=== PATIENT | female | born 1940 | race Caucasian/White ===

== ENCOUNTER 2016-08-29 00:51 | Emergency (ER) | payer MEDICARE, OTHER ==
[2016-08-29] MEDS ORDERED: Morphine 10 MG/ML Syringe IM ONE (01:24)
[2016-08-29] MEDS ORDERED: Furosemide 40 MG Tab PO ONE (01:24)
[2016-08-29] MEDS ORDERED: Furosemide 40 MG Tab ONE (01:42)
[2016-08-29] MEDS ORDERED: Acetaminophen/oxyCODONE 325-5 MG Tab PO ONE (01:50)
[2016-08-29] MEDS ORDERED: Sulfamethoxazole/Trimethoprim 800-160 MG Tab PO ONE (01:50)
[2016-08-29 02:21] VITALS: BP 147/67
--- NOTE | 2016-08-29 02:31 | ER ---
DATE SEEN: 08/29/2016 CHIEF COMPLAINT: Pain in legs. HISTORY OF PRESENT ILLNESS: This is a 75-year-old female with chronic lymphedema. She presents with pain in the lower extremities. The left is worse. There are also weeping wounds and blisters that have worsened over the last 2 days. She denies fever or chills. PAST MEDICAL HISTORY: Chronic lymphedema, hypertension, CAD, obesity. She denies any history of diabetes. REVIEW OF SYSTEMS: No fever or chills. No nausea or vomiting. ALLERGIES: Please see the electronic record. PHYSICAL EXAMINATION: GENERAL: She is afebrile. Blood pressure and temperature within limits with the exception of blood pressure 164/54. EXTREMITIES: Examination showed marked lymphedema. Bullae that are weeping bilaterally. Redness and warmth to palpation. IMPRESSION: 1. Cellulitis, bilateral lower extremities. 2. Lymphedema, chronic marked. 3. Obesity. PLAN: 1. Order a CBC, CMP and will start the patient on Lasix 40 mg a day. Bactrim DS one tablet b.i.d. 2. Percocet 1 tablet q.8 hours p.r.n. I gave her morphine 10 mg IM x1 dose. 3. She will go home, rest, and see Dr. Lopez on Sunday or . Time seen was 0115 hours. /[id number] MIKE/DIONTE
== END 2016-08-29 02:15 | disposition home or self-care (01) ==
LOC: FB.ED 00:51
DX: L03.116 Cellulitis of left lower limb (principal); L03.115 Cellulitis of right lower limb; Q82.0 Hereditary lymphedema; E66.9 Obesity, unspecified; I25.10 Atherosclerotic heart disease of native coronary artery without angina pectoris; I10 Essential (primary) hypertension
CPT/HCPCS: 36415; 80053; 83880; 85025; 96372; 99284; A9270; J2270; 99283

== ENCOUNTER 2016-09-03 19:49 | Inpatient (IN) | payer MEDICARE, OTHER ==
[2016-09-03] MEDS ORDERED: HYDROmorphone 2 MG/ML SDV IM ONE ×2 (20:13→20:50)
[2016-09-03] MEDS ORDERED: Ondansetron 4 MG Tab.DIS PO SCH (20:15)
[2016-09-03] MEDS ORDERED: Polyethylene Glycol 3350 Powder 17 GM Packet PO PRN (20:40)
[2016-09-03] MEDS ORDERED: Ondansetron 4 MG/2 ML SDV IVPUSH PRN (20:53)
[2016-09-03] MEDS ORDERED: HYDROmorphone 2 MG/ML SDV ONE (20:53)
[2016-09-03] MEDS ORDERED: fentaNYL 75 MCG/HR Transdermal Patch TRDERM SCH (21:00)
[2016-09-03] MEDS: Bisacodyl 5 MG Tab PO SCH (21:59)
[2016-09-03] MEDS ORDERED: Piperacillin/Tazobactam 3.375 GM in Sodium Chloride 0.9% 50 ML IV SCH (22:30)
[2016-09-03] MEDS: Sodium Chloride 0.9% 250 ML IV SCH (23:45)
[2016-09-04] MEDS ORDERED: hydrOXYzine HCl 25 MG Tab PO PRN (01:36)
[2016-09-04] MEDS: HYDROmorphone 2 MG Tab PO PRN ×2 (01:53→05:54)
[2016-09-04] MEDS: Sodium Chloride 0.9% 10 ML Syringe FLUSH PRN ×4 (02:47→23:53)
[2016-09-04] MEDS: Piperacillin/Tazobactam 3.375 GM in Sodium Chloride 0.9% 50 ML IV SCH ×4 (05:50→23:57)
[2016-09-04] MEDS: Sodium Chloride 0.9% 250 ML IV SCH (05:53)
[2016-09-04] MEDS ORDERED: Silver Sulfadiazine 1% Crm 400 GM Jar TOP PRN (08:15)
--- NOTE | 2016-09-04 08:31 | PCM.HP ---
H&P History of Present Illness - General Date of Service: 09/04/16 Admit Problem/Dx: Admission Diagnosis/Problem Admission Diagnosis/Problem Cellulitis and abscess of leg Source of Information: Patient History Limitations: Reports: No Limitations - History of Present Illness Initial Comments - Free Text/Narative: This is a 75-year-old female patient with a history of chronic lymphedema and cellulitis in the lower legs. She states she was having some redness in the legs over week ago and was seen in the ER and given antibiotic. She does not recall the antibiotic. She said she was feeling better. She was walking in her house 6 days before admission and hit her left leg on a chair and she started having more redness, swelling and drainage in the left lower leg. She was seen in the ER last night and admitted for IV antibiotics and pain control. She denies fevers, chills. She has been on leg wraps and seen physical therapy in the past. She is not physical therapy currently. Left Lower Leg Pain Score (Numeric/FACES): 10 - Related Data Allergies/Adverse Reactions: Allergies Allergy/AdvReac Type Severity Reaction Status Date / Time oxytetracycline Allergy Mild Dizziness Verified 09/03/16 22:58 [From Terramycin] oxytetracycline HCl Allergy Mild Dizziness Verified 09/03/16 22:58 [From Terramycin] Home Medications: Home Meds Aspirin [Low Dose Aspirin EC] 81 mg PO DAILY 12/09/13 [History] Citalopram [Citalopram HBr] 40 mg PO DAILY 12/09/13 [History] Oxybutynin 10 mg PO BID 12/09/13 [History] Silver Sulfadiazine [Ssd] 1 dose TOP DAILY PRN 12/09/13 [History] buPROPion HCl [Wellbutrin SR] 150 mg PO BID 12/09/13 [History] Lisinopril [Prinivil] 5 mg PO DAILY #30 tablet 12/16/13 [Rx] Acetaminophen with Codeine [Tylenol with Codeine #3 Tablet] 1 each PO TID PRN [History] atorvaSTATin [Lipitor] 40 mg PO BEDTIME 08/29/16 [History] Ferrous Sulfate 324 mg PO DAILY 09/03/16 [History] Past Medical History HEENT History: Reports: Cataract Cardiovascular History: Reports: Hypertension, [place] Other Cardiovascular History: History of Lymphedema. Respiratory History: Reports: SOB Gastrointestinal History: Reports: GERD Other Gastrointestinal History: Obesity. Genitourinary History: Reports: Urinary Incontinence, UTI, Recurrent [employer] History: Reports: Musculoskeletal History: Reports: Osteoarthritis, Other (See Below) Other Musculoskeletal History: lymphoedema Other Neuro History: History of insomnia. Psychiatric History: Reports: Depression Hematologic History: Reports: Anemia Oncologic (Cancer) History: Reports: Other (See Below) Other Oncologic History: skin [place] Dermatologic History: Reports: Cellulitis, Psoriasis Other Dermatologic History: History of [place] intertrigo. - Infectious Disease History Infectious Disease History: Reports: Chicken Pox - Past Surgical History HEENT Surgical History: Reports: Cataract Surgery, Tonsillectomy Cardiovascular Surgical History: Reports: Other (See Below) Other Cardiovascular Surgeries/Procedures: vein stripping GI Surgical History: Reports: Appendectomy Musculoskeletal Surgical History: Reports: Knee Replacement Social & Family History - Family History Family Medical History: Noncontributory - Tobacco Use Smoking Status *Q: Former Smoker Years of Tobacco use: 20 Used Tobacco, but Quit: Yes Month Tobacco Last Used: 1995 Second Hand Smoke Exposure: No - Caffeine Use Caffeine Use: Reports: Coffee - Alcohol Use Days Per Week of Alcohol Use: 0 - Recreational Drug Use Recreational Drug Use: No H&P Review of Systems - Review of Systems: Review Of Systems: See Below General: Reports: No Symptoms HEENT: Reports: No Symptoms Pulmonary: Reports: No Symptoms Cardiovascular: Reports: No Symptoms Gastrointestinal: Reports: No Symptoms Genitourinary: Reports: Incontinence Musculoskeletal: Reports: No Symptoms Psychiatric: Reports: Depression. Denies: Anxiety, Agitation, Hallucinations, Suicidal Ideation Neurological: Reports: No Symptoms Hematologic/Lymphatic: Reports: No Symptoms Immunologic: Reports: No Symptoms Exam - Exam Exam: See Below - Vital Signs Vital Signs: Last Vital Signs Temp 98.9 F 09/04/16 03:07 Pulse 76 09/04/16 03:07 Resp 18 09/04/16 03:07 BP 106/50 L 09/04/16 00:17 Pulse Ox 93 L 09/04/16 03:07 Weight: 210 lb - Exam General: Alert, Oriented, Cooperative HEENT: Mucosa Moist & [place], Posterior Pharynx Clear, TMs Clear Neck: Supple, Trachea Midline, 2 Lungs: Clear to Auscultation, Normal Respiratory Effort Cardiovascular: Regular Rate, Regular Rhythm. No: Systolic Murmur, Diastolic Murmur Abdomen: Normal Bowel Sounds, Soft. No: Peritoneal Signs, Distention, Guarding Back Exam: Normal Inspection, Full Range of Motion Extremities: Edema Skin: Other (Erythema lower legs bilateral. Left greater than right. Some mild leaking clear fluid.) Neuro Extensive - Mental Status: Alert, Oriented x3, Normal Mood/Affect, Normal Cognition Neuro Extensive - Motor, Sensory, Reflexes: Normal Gait Psychiatric: Alert, Normal Affect, Normal Mood - Patient Data Lab Results Last 24 hrs: Laboratory Results - last 24 hr 09/04/16 09/04/16 09/04/16 Range/Units 00:12 02:00 06:21 POC Glucose 141 H 96 (80-116) mg/dL Urine Color Yellow (YELLOW) Urine Appearance Slightly cloudy (CLEAR) Urine pH 6.0 (5.0-6.5) Ur Specific [place] 1.025 (1.010-1.025) Urine Protein Negative (NEGATIVE) mg/dL Urine Glucose (UA) Normal (NEGATIVE) mg/dL Urine Ketones Negative (NEGATIVE) mg/dL Urine Occult Blood Negative (NEGATIVE) Urine Nitrite Negative (NEGATIVE) Urine Bilirubin Negative (NEGATIVE) Urine Urobilinogen Normal (NEGATIVE) mg/dL Ur Leukocyte Esterase Negative (NEGATIVE) Urine RBC 0-5 (0) Urine WBC 0-5 (0) Ur Squamous Epith Cells Few H (NS,R,O) Calcium Oxalate Crystal Few H (NS) Urine Bacteria Few H (NS) Result Diagrams: 09/03/16 20:40 09/03/16 20:30 *Q Meaningful Use (ADM) - VTE *Q VTE Criteria *Q: - Stroke *Q Stroke Criteria *Q: - AMI *Q AMI Criteria *Q: - Problem List (1) Cellulitis and abscess of left leg SNOMED Code(s): 312690135 ICD Code: L03.116 - CELLULITIS OF LEFT LOWER LIMB; L02.416 - CUTANEOUS ABSCESS OF LEFT LOWER LIMB Status: Acute Current Visit: Yes (2) Chronic acquired lymphedema SNOMED Code(s): 86520700 ICD Code: I89.0 - LYMPHEDEMA, NOT ELSEWHERE CLASSIFIED Status: Acute Current Visit: Yes (3) Depression SNOMED Code(s): 29072852 ICD Code: F32.9 - MAJOR DEPRESSIVE DISORDER, SINGLE EPISODE, UNSPECIFIED Status: Acute Current Visit: Yes Problem List Initiated/Reviewed/Updated: Yes Orders Last 24hrs: Active Orders 24 hr Category Date Time Status PT Evaluation and Treatment [CONS] Routine Cons 09/04/16 07:48 Active VIRAL CULTURE [MREF] Routine Lab 09/03/16 22:35 Received Acetaminophen/oxyCODONE [Percocet 325-5 MG] Med 09/04/16 08:15 Ordered 1 tab PO Q4H PRN Aspirin [Halfprin] Med 09/04/16 09:00 Ordered 81 mg PO DAILY Escitalopram [Lexapro] Med 09/04/16 09:00 Ordered 20 mg PO DAILY Ferrous Sulfate [Ferrous Sulfate] Med 09/04/16 09:00 Ordered 324 mg PO DAILY Lisinopril [Prinivil] Med 09/04/16 09:00 Ordered 5 mg PO DAILY Oxybutynin Med 09/04/16 09:00 Ordered 10 mg PO BID Piperacillin/Tazobactam [Zosyn] 3.375 gm Med 09/04/16 06:00 Active Sodium Chloride 0.9% [Normal Saline] 50 ml IV Q6H Silver Sulfadiazine [Silvadene 1% Cream 400 GM] Med 09/04/16 08:15 Ordered 1 dose TOP DAILY PRN Sodium Chloride 0.9% [Normal Saline] 250 ml Med 09/03/16 23:45 Active IV ASDIRECTED Sodium Chloride 0.9% [Saline Flush] Med 09/03/16 23:43 Active 10 ml FLUSH ASDIRECTED PRN Vancomycin [Vancocin] 1.5 gm Med 09/03/16 23:00 Active Sodium Chloride 0.9% [Normal Saline] 250 ml IV Q24H atorvaSTATin [Lipitor] Med 09/04/16 21:00 Ordered 40 mg PO BEDTIME Isolation [COMM] Routine Oth 09/03/16 22:25 Ordered Precautions [COMM] Routine Oth 09/03/16 22:25 Ordered EKG 12 Lead [EK] Routine Ther 09/03/16 21:02 Ordered Medication Orders Aspirin (Halfprin) 81 mg PO DAILY [facility] Atorvastatin Calcium (Lipitor) 40 mg PO BEDTIME [facility] Bisacodyl (Dulcolax) 5 mg PO BID [facility] Last Admin: 09/03/16 21:59 Dose: Not Given Enoxaparin Sodium (Lovenox) 40 mg SUBCUT DAILY [facility] Vancomycin HCl 1.5 gm/ Sodium (Chloride) 250 mls @ 167 mls/hr IV Q24H [facility] Last Admin: 09/03/16 23:55 Dose: 167 mls/hr Sodium Chloride (Normal Saline) 250 mls @ 100 mls/hr IV ASDIRECTED [facility] Last Admin: 09/04/16 05:53 Dose: 100 mls/hr Admin: 09/03/16 23:45 Dose: 100 mls/hr Piperacillin Sod/Tazobactam (Sod 3.375 gm/ Sodium Chloride) 50 mls @ 100 mls/ hr IV Q6H [facility] Last Admin: 09/04/16 05:50 Dose: 100 mls/hr Lisinopril (Prinivil) 5 mg PO DAILY [facility] Non-Formulary Medication (Ferrous Sulfate [Ferrous Sulfate]) 324 mg PO DAILY [facility] Oxybutynin Chloride (Oxybutynin) 10 mg PO BID [facility] Oxycodone/Acetaminophen (Percocet 325-5 Mg) 1 tab PO Q4H PRN PRN Reason: Pain Polyethylene Glycol (Miralax) 17 gm PO DAILY PRN PRN Reason: Constipation Silver Sulfadiazine (Silvadene 1% Cream 400 Gm) gm TOP DAILY PRN PRN Reason: skin irritation Sodium Chloride (Saline Flush) 10 ml FLUSH ASDIRECTED PRN PRN Reason: Keep Vein Open Last Admin: 09/04/16 08:00 Dose: 10 ml Admin: 09/04/16 03:46 Dose: 10 ml Admin: 09/04/16 02:47 Dose: 10 ml Assessment/Plan Comment:: 1. Admit for IV antibiotics that are already ordered. 2. Patient refuses Lovenox cannot wear SCDs. Risks explained and she understands. 3. Regular diet. 4. Up ad nancy. 5. PT 6. Restart her regular medicines. Hold Celexa and Wellbutrin and I'll try Lexapro 20 mg a day.
[2016-09-04] MEDS: Escitalopram 20 MG Tab PO SCH (09:11)
[2016-09-04] MEDS: Oxybutynin 5 MG Tab PO SCH ×2 (09:11→21:37)
[2016-09-04] MEDS: Ferrous Sulfate 325 MG Tab PO SCH (09:11)
[2016-09-04] MEDS: Lisinopril 5 MG Tab PO SCH (09:11)
[2016-09-04] MEDS: Aspirin 81 MG Tab.EC PO SCH (09:11)
[2016-09-04] MEDS: Bisacodyl 5 MG Tab PO SCH ×2 (09:11→21:36)
[2016-09-04] MEDS: Enoxaparin 40 MG/0.4 ML Syringe SUBCUT SCH (09:11)
[2016-09-04] MEDS: Acetaminophen/oxyCODONE 325-5 MG Tab PO PRN ×2 (09:12→14:11)
[2016-09-04] MEDS: HYDROmorphone 2 MG/ML SDV IVPUSH PRN (19:21)
[2016-09-04] MEDS ORDERED: Zolpidem 10 MG Tab PO PRN (19:57)
[2016-09-04] MEDS: atorvaSTATin 40 MG Tab PO SCH (21:37)
[2016-09-04] MEDS ORDERED: Bisacodyl 10 MG Supp RECTAL PRN (23:00)
[2016-09-05] MEDS: Acetaminophen/oxyCODONE 325-5 MG Tab PO PRN ×4 (00:14→21:17)
[2016-09-05] MEDS: Zolpidem 5 MG Tab PO PRN (00:15)
[2016-09-05] MEDS ORDERED: hydrOXYzine HCl 25 MG Tab PO PRN (00:30)
[2016-09-05] MEDS: Sodium Chloride 0.9% 10 ML Syringe FLUSH PRN ×4 (00:42→17:15)
[2016-09-05] MEDS: Piperacillin/Tazobactam 3.375 GM in Sodium Chloride 0.9% 50 ML IV SCH ×3 (05:38→18:23)
[2016-09-05] MEDS: Sodium Chloride 0.9% 250 ML IV SCH (05:38)
--- NOTE | 2016-09-05 08:12 | PCM.PN ---
- General Info Date of Service: 09/05/16 Admission Dx/Problem (Free Text): Patient states she slept through the night. She still has a burning sensation left lower leg. She states the room is cold but she has no real fevers or chills. Nurses report that the area on left lower leg is lots of serosanguineous weeping. - Patient Data Vitals - most recent: Last Vital Signs Temp 98.7 F 09/05/16 04:35 Pulse 74 09/05/16 04:35 Resp 18 09/05/16 04:35 BP 132/59 L 09/05/16 04:35 Pulse Ox 96 09/05/16 04:35 Weight - most recent: 210 lb I&O - last 24 hours: Intake & Output 09/04/16 09/05/16 09/05/16 22:59 06:59 14:59 Intake Total 740 Balance 740 Lab Results last 24 hrs: Laboratory Results - last 24 hr 09/04/16 Range/Units 11:34 POC Glucose 100 (80-116) mg/dL Med Orders - Current: Current Medications Aspirin (Halfprin) 81 mg PO DAILY [facility] Last Admin: 09/04/16 09:11 Dose: 81 mg Atorvastatin Calcium (Lipitor) 40 mg PO BEDTIME [facility] Last Admin: 09/04/16 21:37 Dose: 40 mg Bisacodyl (Dulcolax) 5 mg PO BID [facility] Last Admin: 09/04/16 21:36 Dose: Not Given Bisacodyl (Dulcolax) 10 mg RECTAL DAILY PRN PRN Reason: Constipation Last Admin: 09/04/16 23:47 Dose: 10 mg Enoxaparin Sodium (Lovenox) 40 mg SUBCUT DAILY [facility] Last Admin: 09/04/16 09:11 Dose: 40 mg Escitalopram Oxalate (Lexapro) 20 mg PO DAILY [facility] Last Admin: 09/04/16 09:11 Dose: 20 mg Ferrous Sulfate (Ferrous Sulfate) 325 mg PO DAILY [facility] Last Admin: 09/04/16 09:11 Dose: 325 mg Hydromorphone HCl (Dilaudid) 2 mg IVPUSH Q2H PRN PRN Reason: Pain Last Admin: 09/04/16 19:21 Dose: 2 mg Piperacillin Sod/Tazobactam (Sod 3.375 gm/ Sodium Chloride) 50 mls @ 100 mls/ hr IV Q6H [facility] Last Admin: 09/05/16 05:38 Dose: 100 mls/hr Vancomycin HCl 1,000 mg/Vancomycin HCl 500 mg/ Sodium Chloride 500 mls @ 334.014 mls/hr IV Q24H [facility] Last Admin: 09/05/16 00:45 Dose: 334.014 mls/hr Lisinopril (Prinivil) 5 mg PO DAILY [facility] Last Admin: 09/04/16 09:11 Dose: 5 mg Oxybutynin Chloride (Oxybutynin) 10 mg PO BID [facility] Last Admin: 09/04/16 21:37 Dose: 10 mg Oxycodone/Acetaminophen (Percocet 325-5 Mg) 1 tab PO Q4H PRN PRN Reason: Pain Last Admin: 09/05/16 04:15 Dose: 1 tab Polyethylene Glycol (Miralax) 17 gm PO DAILY PRN PRN Reason: Constipation Silver Sulfadiazine (Silvadene 1% Cream 400 Gm) 0 gm TOP BID [facility] Zolpidem Tartrate (Ambien) 5 mg PO BEDTIME PRN PRN Reason: Insomnia Last Admin: 09/05/16 00:15 Dose: 5 mg Discontinued Medications Fentanyl (Duragesic) 75 mcg TRDERM Q72H [facility] Last Admin: 09/03/16 21:58 Dose: 75 mcg Hydromorphone HCl (Dilaudid) 2 mg IM ONETIME ONE Stop: 09/03/16 20:14 Last Admin: 09/03/16 20:28 Dose: 2 mg Hydromorphone HCl (Dilaudid) 2 mg IM ONETIME ONE Stop: 09/03/16 20:51 Last Admin: 09/03/16 20:58 Dose: 2 mg Hydromorphone HCl (Dilaudid) Confirm Administered Dose 2 mg .ROUTE .STK-MED ONE Stop: 09/03/16 20:54 Last Admin: 09/03/16 20:57 Dose: Not Given Hydromorphone HCl (Dilaudid) 2 mg PO Q4H PRN PRN Reason: Pain Last Admin: 09/04/16 05:54 Dose: 2 mg Hydroxyzine HCl (Atarax) 25 mg PO BEDTIME PRN PRN Reason: Insomnia Last Admin: 09/04/16 02:05 Dose: 25 mg Hydroxyzine HCl (Atarax) 25 mg PO Q6H PRN PRN Reason: Itching Last Admin: 09/05/16 01:08 Dose: 25 mg Vancomycin HCl 1.5 gm/ Sodium (Chloride) 250 mls @ 167 mls/hr IV Q24H [facility] Last Admin: 09/03/16 23:55 Dose: 167 mls/hr Piperacillin Sod/Tazobactam (Sod 3.375 gm/ Sodium Chloride) 50 mls @ 100 mls/ hr IV Q6H [facility] Last Admin: 09/04/16 01:05 Dose: 100 mls/hr Sodium Chloride (Normal Saline) 250 mls @ 100 mls/hr IV ASDIRECTED [facility] Last Admin: 09/05/16 05:38 Dose: 100 mls/hr Vancomycin HCl 1,000 mg/Vancomycin HCl 500 mg/ Sodium Chloride 500 mls @ 334.014 mls/hr IV Q24H [facility] Miscellaneous Information (Remove Patch) 1 ea TRDERM NOW STA Stop: 09/04/16 09:22 Last Admin: 09/04/16 09:22 Dose: 1 ea Ondansetron HCl (Zofran Odt) 4 mg PO ONETIME [facility] Last Admin: 09/03/16 20:29 Dose: 4 mg Ondansetron HCl (Zofran) 4 mg IVPUSH Q6H PRN PRN Reason: Nausea/Vomiting Silver Sulfadiazine (Silvadene 1% Cream 400 Gm) 0 gm TOP DAILY PRN PRN Reason: skin irritation Sodium Chloride (Saline Flush) 10 ml FLUSH ASDIRECTED PRN PRN Reason: Keep Vein Open Last Admin: 09/05/16 05:30 Dose: 10 ml Zolpidem Tartrate (Ambien) 10 mg PO BEDTIME PRN PRN Reason: Insomnia - Exam General: alert, oriented, cooperative Extremities: other (Left lower leg has some weeping and erythema. I do not feel any fluctuant masses. Both the same as yesterday. Right leg is some erythema and crusting.) - Problem List & Annotations (1) Cellulitis and abscess of left leg SNOMED Code(s): 097423598 Code(s): L03.116 - CELLULITIS OF LEFT LOWER LIMB; L02.416 - CUTANEOUS ABSCESS OF LEFT LOWER LIMB Status: Acute Current Visit: Yes (2) Chronic acquired lymphedema SNOMED Code(s): 83811995 Code(s): I89.0 - LYMPHEDEMA, NOT ELSEWHERE CLASSIFIED Status: Acute Current Visit: Yes (3) Depression SNOMED Code(s): 90184910 Code(s): F32.9 - MAJOR DEPRESSIVE DISORDER, SINGLE EPISODE, UNSPECIFIED Status: Acute Current Visit: Yes - Problem List Review Problem List Initiated/Reviewed/Updated: Yes - Plan Plan:: 1. Continue IV antibiotics 2. Silvadene cream twice a day to the left lower leg. 3. In the ER a viral culture of the skin was ordered. I asked the lab to see if they can convert this to wound culture. Will reculture her left lower leg. 4. Up ad nancy. and up in the chair with leg elevated. 5. Pharmacy to manage vancomycin. 6. CBC this a.m.
[2016-09-05] MEDS: Aspirin 81 MG Tab.EC PO SCH (08:42)
[2016-09-05] MEDS: Enoxaparin 40 MG/0.4 ML Syringe SUBCUT SCH (08:42)
[2016-09-05] MEDS: Lisinopril 5 MG Tab PO SCH (08:42)
[2016-09-05] MEDS: Ferrous Sulfate 325 MG Tab PO SCH (08:42)
[2016-09-05] MEDS: Bisacodyl 5 MG Tab PO SCH (08:42)
[2016-09-05] MEDS: Oxybutynin 5 MG Tab PO SCH ×2 (08:42→21:08)
[2016-09-05] MEDS: Escitalopram 20 MG Tab PO SCH (08:42)
[2016-09-05] MEDS: Silver Sulfadiazine 1% Crm 400 GM Jar TOP SCH ×2 (08:43→21:17)
[2016-09-05] MEDS: Cetirizine 10 MG Tab PO PRN (12:04)
[2016-09-05] MEDS: HYDROmorphone 2 MG/ML SDV IVPUSH PRN (17:22)
[2016-09-05] MEDS ORDERED: Bisacodyl 5 MG Tab PO PRN (20:25)
[2016-09-05] MEDS: atorvaSTATin 40 MG Tab PO SCH (21:08)
[2016-09-06] MEDS: Acetaminophen/oxyCODONE 325-5 MG Tab PO PRN ×3 (00:44→09:05)
[2016-09-06] MEDS: Piperacillin/Tazobactam 3.375 GM in Sodium Chloride 0.9% 50 ML IV SCH ×4 (00:45→18:36)
[2016-09-06] MEDS: guaiFENesin 100 MG/5 ML Soln 5 ML UD Cup PO PRN (02:00)
[2016-09-06] MEDS: HYDROmorphone 2 MG/ML SDV IVPUSH PRN (02:01)
[2016-09-06] MEDS: Aspirin 81 MG Tab.EC PO SCH (08:50)
[2016-09-06] MEDS: Ferrous Sulfate 325 MG Tab PO SCH (08:50)
[2016-09-06] MEDS: Oxybutynin 5 MG Tab PO SCH ×2 (08:50→20:27)
[2016-09-06] MEDS: Escitalopram 20 MG Tab PO SCH (08:50)
[2016-09-06] MEDS: Lisinopril 5 MG Tab PO SCH (08:51)
[2016-09-06] MEDS: Enoxaparin 40 MG/0.4 ML Syringe SUBCUT SCH (08:51)
[2016-09-06] MEDS: Silver Sulfadiazine 1% Crm 400 GM Jar TOP SCH ×2 (09:16→20:27)
--- NOTE | 2016-09-06 09:31 | PCM.PN ---
- General Info Date of Service: 09/06/16 Admission Dx/Problem (Free Text): Patient had a bad night. She says did not sleep well. She still is leg pain. She doesn't know the medicines really helping. She denies fevers or chills. - Patient Data Vitals - most recent: Last Vital Signs Temp 98.6 F 09/06/16 05:10 Pulse 75 09/06/16 08:00 Resp 18 09/06/16 08:00 BP 129/62 09/06/16 08:00 Pulse Ox 94 L 09/06/16 08:00 Weight - most recent: 210 lb I&O - last 24 hours: Intake & Output 09/05/16 09/06/16 09/06/16 22:59 06:59 14:59 Intake Total 635 Output Total 0 Balance 635 0 Lab Results last 24 hrs: Laboratory Results - last 24 hr 09/06/16 Range/Units 00:45 Vancomycin Trough 8.9 L (10-15) ug/mL Med Orders - Current: Current Medications Aspirin (Halfprin) 81 mg PO DAILY [facility] Last Admin: 09/06/16 08:50 Dose: 81 mg Atorvastatin Calcium (Lipitor) 40 mg PO BEDTIME [facility] Last Admin: 09/05/16 21:08 Dose: 40 mg Bisacodyl (Dulcolax) 10 mg RECTAL DAILY PRN PRN Reason: Constipation Last Admin: 09/04/16 23:47 Dose: 10 mg Bisacodyl (Dulcolax) 5 mg PO BID PRN PRN Reason: Constipation Cetirizine HCl (Zyrtec) 10 mg PO DAILY PRN PRN Reason: Itching Last Admin: 09/05/16 12:04 Dose: 10 mg Enoxaparin Sodium (Lovenox) 40 mg SUBCUT DAILY [facility] Last Admin: 09/06/16 08:51 Dose: 40 mg Escitalopram Oxalate (Lexapro) 20 mg PO DAILY [facility] Last Admin: 09/06/16 08:50 Dose: 20 mg Ferrous Sulfate (Ferrous Sulfate) 325 mg PO DAILY [facility] Last Admin: 09/06/16 08:50 Dose: 325 mg Guaifenesin (Robitussin) 100 mg PO Q6H PRN PRN Reason: Cough Last Admin: 09/06/16 02:00 Dose: 100 mg Piperacillin Sod/Tazobactam (Sod 3.375 gm/ Sodium Chloride) 50 mls @ 100 mls/ hr IV Q6H [facility] Last Admin: 09/06/16 05:07 Dose: 100 mls/hr Vancomycin HCl 1,000 mg/Vancomycin HCl 500 mg/ Sodium Chloride 500 mls @ 333 mls/hr IV Q24H [facility] Last Admin: 09/06/16 01:49 Dose: 333 mls/hr Lisinopril (Prinivil) 5 mg PO DAILY [facility] Last Admin: 09/06/16 08:51 Dose: 5 mg Oxybutynin Chloride (Oxybutynin) 10 mg PO BID [facility] Last Admin: 09/06/16 08:50 Dose: 10 mg Polyethylene Glycol (Miralax) 17 gm PO DAILY PRN PRN Reason: Constipation Silver Sulfadiazine (Silvadene 1% Cream 400 Gm) 0 gm TOP BID [facility] Last Admin: 09/06/16 09:16 Dose: 1 applic Sodium Chloride (Saline Flush) 10 ml FLUSH ASDIRECTED PRN PRN Reason: Keep Vein Open Last Admin: 09/05/16 17:15 Dose: 10 ml Vancomycin HCl (Pharmacy To Dose - Vancomycin) 0 dose .XX ASDIRECTED [facility] Zolpidem Tartrate (Ambien) 5 mg PO BEDTIME PRN PRN Reason: Insomnia Last Admin: 09/05/16 00:15 Dose: 5 mg Discontinued Medications Bisacodyl (Dulcolax) 5 mg PO BID [facility] Last Admin: 09/05/16 08:42 Dose: 5 mg Fentanyl (Duragesic) 75 mcg TRDERM Q72H [facility] Last Admin: 09/03/16 21:58 Dose: 75 mcg Hydromorphone HCl (Dilaudid) 2 mg IM ONETIME ONE Stop: 09/03/16 20:14 Last Admin: 09/03/16 20:28 Dose: 2 mg Hydromorphone HCl (Dilaudid) 2 mg IM ONETIME ONE Stop: 09/03/16 20:51 Last Admin: 09/03/16 20:58 Dose: 2 mg Hydromorphone HCl (Dilaudid) Confirm Administered Dose 2 mg .ROUTE .STK-MED ONE Stop: 09/03/16 20:54 Last Admin: 09/03/16 20:57 Dose: Not Given Hydromorphone HCl (Dilaudid) 2 mg PO Q4H PRN PRN Reason: Pain Last Admin: 09/04/16 05:54 Dose: 2 mg Hydromorphone HCl (Dilaudid) 2 mg IVPUSH Q2H PRN PRN Reason: Pain Last Admin: 09/06/16 02:01 Dose: 2 mg Hydroxyzine HCl (Atarax) 25 mg PO BEDTIME PRN PRN Reason: Insomnia Last Admin: 09/04/16 02:05 Dose: 25 mg Hydroxyzine HCl (Atarax) 25 mg PO Q6H PRN PRN Reason: Itching Last Admin: 09/05/16 01:08 Dose: 25 mg Vancomycin HCl 1.5 gm/ Sodium (Chloride) 250 mls @ 167 mls/hr IV Q24H [facility] Last Admin: 09/03/16 23:55 Dose: 167 mls/hr Piperacillin Sod/Tazobactam (Sod 3.375 gm/ Sodium Chloride) 50 mls @ 100 mls/ hr IV Q6H [facility] Last Admin: 09/04/16 01:05 Dose: 100 mls/hr Sodium Chloride (Normal Saline) 250 mls @ 100 mls/hr IV ASDIRECTED [facility] Last Admin: 09/05/16 05:38 Dose: 100 mls/hr Vancomycin HCl 1,000 mg/Vancomycin HCl 500 mg/ Sodium Chloride 500 mls @ 334.014 mls/hr IV Q24H [facility] Vancomycin HCl 1,000 mg/Vancomycin HCl 500 mg/ Sodium Chloride 500 mls @ 334.014 mls/hr IV Q24H [facility] Last Admin: 09/05/16 00:45 Dose: 334.014 mls/hr Miscellaneous Information (Remove Patch) 1 ea TRDERM NOW STA Stop: 09/04/16 09:22 Last Admin: 09/04/16 09:22 Dose: 1 ea Ondansetron HCl (Zofran Odt) 4 mg PO ONETIME [facility] Last Admin: 09/03/16 20:29 Dose: 4 mg Ondansetron HCl (Zofran) 4 mg IVPUSH Q6H PRN PRN Reason: Nausea/Vomiting Oxycodone/Acetaminophen (Percocet 325-5 Mg) 1 tab PO Q4H PRN PRN Reason: Pain Last Admin: 09/06/16 09:05 Dose: 1 tab Silver Sulfadiazine (Silvadene 1% Cream 400 Gm) 0 gm TOP DAILY PRN PRN Reason: skin irritation Sodium Chloride (Saline Flush) 10 ml FLUSH ASDIRECTED PRN PRN Reason: Keep Vein Open Last Admin: 09/05/16 05:30 Dose: 10 ml Zolpidem Tartrate (Ambien) 10 mg PO BEDTIME PRN PRN Reason: Insomnia - Exam General: alert, oriented, cooperative Extremities: other (The leg redness is decreasing. There is an ulcer that opened up and is healing nicely. No weeping.) - Problem List & Annotations (1) Cellulitis and abscess of left leg SNOMED Code(s): 981881282 Code(s): L03.116 - CELLULITIS OF LEFT LOWER LIMB; L02.416 - CUTANEOUS ABSCESS OF LEFT LOWER LIMB Status: Acute Current Visit: Yes (2) Chronic acquired lymphedema SNOMED Code(s): 68372928 Code(s): I89.0 - LYMPHEDEMA, NOT ELSEWHERE CLASSIFIED Status: Acute Current Visit: Yes (3) Depression SNOMED Code(s): 00609683 Code(s): F32.9 - MAJOR DEPRESSIVE DISORDER, SINGLE EPISODE, UNSPECIFIED Status: Acute Current Visit: Yes - Problem List Review Problem List Initiated/Reviewed/Updated: Yes - My Orders Last 24 Hours: My Active Orders 09/05/16 08:35 CULTURE ROUTINE + SMEAR [RM] Routine 09/05/16 09:00 Silver Sulfadiazine [Silvadene 1% Cream 400 GM] 0 gm TOP BID 09/05/16 09:19 Cetirizine [ZyrTEC] 10 mg PO DAILY PRN 09/05/16 11:30 Vancomycin Pharmacy to Dose [Pharmacy to Dose - Vancomycin] See Dose Instructions .XX ASDIRECTED 09/05/16 17:20 Sodium Chloride 0.9% [Saline Flush] 10 ml FLUSH ASDIRECTED PRN 09/05/16 20:25 Bisacodyl [Dulcolax] 5 mg PO BID PRN 09/06/16 09:27 HYDROmorphone [Dilaudid] 4 mg PO Q4H PRN - Plan Plan:: 1. Continue IV antibiotics 2. Silvadene cream twice a day to the left lower leg. 3. Wound culture so far is negative. 4. Stop Percocet and IV hydromorphone. Start hydromorphone 4 mg every 4 hours when necessary 5. Restart wrapping her legs with [place] wrap to see if getting the swelling I'll make this resolve sooner.
[2016-09-06] MEDS: Cetirizine 10 MG Tab PO PRN (10:39)
[2016-09-06] MEDS ORDERED: guaiFENesin/Dextromethorphan 100-10 MG/5 ML Soln 5 ML Cup PO PRN (17:57)
[2016-09-06] MEDS: HYDROmorphone 2 MG Tab PO PRN (18:36)
[2016-09-06] MEDS: atorvaSTATin 40 MG Tab PO SCH (20:27)
[2016-09-07] MEDS: Piperacillin/Tazobactam 3.375 GM in Sodium Chloride 0.9% 50 ML IV SCH ×4 (00:30→20:45)
[2016-09-07] MEDS: HYDROmorphone 2 MG Tab PO PRN ×2 (00:31→05:08)
[2016-09-07] MEDS: guaiFENesin 100 MG/5 ML Soln 5 ML UD Cup PO PRN (00:44)
[2016-09-07] MEDS: Zolpidem 5 MG Tab PO PRN (01:50)
--- NOTE | 2016-09-07 09:13 | PCM.PN ---
- General Info Date of Service: 09/07/16 Admission Dx/Problem (Free Text): This patient states she still having excruciating pain in the left lower leg. Last night when she was on 4 mg of Hydromox she was tired. On 2 mg she says it does not take care of the pain. She's used morphine in the ER and that didn't work either. She like me to increase the pain pill. She denies fevers, chills Anastacia is some weeping now again on the left lower leg. She told the nurses that Silvadene burn the skin. And she did not tolerate the wraps. - Patient Data Vitals - most recent: Last Vital Signs Temp 98.1 F 09/07/16 00:26 Pulse 79 09/07/16 00:26 Resp 18 09/07/16 00:26 BP 133/64 09/07/16 00:26 Pulse Ox 95 09/07/16 00:26 Weight - most recent: 210 lb I&O - last 24 hours: Intake & Output 09/06/16 09/07/16 09/07/16 22:59 06:59 14:59 Intake Total 85 606 Balance 85 606 Timo Results last 24 hrs: Microbiology 09/05/16 08:35 Gram Stain - Final Leg, Left Routine Culture - Final No Growth Med Orders - Current: Current Medications Aspirin (Halfprin) 81 mg PO DAILY [facility] Last Admin: 09/06/16 08:50 Dose: 81 mg Atorvastatin Calcium (Lipitor) 40 mg PO BEDTIME [facility] Last Admin: 09/06/16 20:27 Dose: 40 mg Bisacodyl (Dulcolax) 10 mg RECTAL DAILY PRN PRN Reason: Constipation Last Admin: 09/04/16 23:47 Dose: 10 mg Bisacodyl (Dulcolax) 5 mg PO BID PRN PRN Reason: Constipation Cetirizine HCl (Zyrtec) 10 mg PO DAILY PRN PRN Reason: Itching Last Admin: 09/06/16 10:39 Dose: 10 mg Enoxaparin Sodium (Lovenox) 40 mg SUBCUT DAILY [facility] Last Admin: 09/06/16 08:51 Dose: 40 mg Escitalopram Oxalate (Lexapro) 20 mg PO DAILY [facility] Last Admin: 09/06/16 08:50 Dose: 20 mg Ferrous Sulfate (Ferrous Sulfate) 325 mg PO DAILY [facility] Last Admin: 09/06/16 08:50 Dose: 325 mg Guaifenesin (Robitussin) 100 mg PO Q6H PRN PRN Reason: Cough Last Admin: 09/07/16 00:44 Dose: 100 mg Guaifenesin/Phenylephrine HCl (Robitussin Dm) 5 ml PO Q4H PRN PRN Reason: Cough Hydromorphone HCl (Dilaudid) 4 mg PO Q4H PRN PRN Reason: Pain Piperacillin Sod/Tazobactam (Sod 3.375 gm/ Sodium Chloride) 50 mls @ 100 mls/ hr IV Q6H [facility] Last Admin: 09/07/16 06:39 Dose: 100 mls/hr Vancomycin HCl 1,000 mg/Vancomycin HCl 500 mg/ Sodium Chloride 500 mls @ 333 mls/hr IV Q24H [facility] Last Admin: 09/07/16 01:49 Dose: 333 mls/hr Lisinopril (Prinivil) 5 mg PO DAILY [facility] Last Admin: 09/06/16 08:51 Dose: 5 mg Oxybutynin Chloride (Oxybutynin) 10 mg PO BID [facility] Last Admin: 09/06/16 20:27 Dose: 10 mg Polyethylene Glycol (Miralax) 17 gm PO DAILY PRN PRN Reason: Constipation Silver Sulfadiazine (Silvadene 1% Cream 400 Gm) 0 gm TOP BID [facility] Last Admin: 09/06/16 20:27 Dose: 1 applic Sodium Chloride (Saline Flush) 10 ml FLUSH ASDIRECTED PRN PRN Reason: Keep Vein Open Last Admin: 09/05/16 17:15 Dose: 10 ml Vancomycin HCl (Pharmacy To Dose - Vancomycin) 0 dose .XX ASDIRECTED [facility] Zolpidem Tartrate (Ambien) 5 mg PO BEDTIME PRN PRN Reason: Insomnia Last Admin: 09/07/16 01:50 Dose: 5 mg Discontinued Medications Bisacodyl (Dulcolax) 5 mg PO BID [facility] Last Admin: 09/05/16 08:42 Dose: 5 mg Fentanyl (Duragesic) 75 mcg TRDERM Q72H [facility] Last Admin: 09/03/16 21:58 Dose: 75 mcg Hydromorphone HCl (Dilaudid) 2 mg IM ONETIME ONE Stop: 09/03/16 20:14 Last Admin: 09/03/16 20:28 Dose: 2 mg Hydromorphone HCl (Dilaudid) 2 mg IM ONETIME ONE Stop: 09/03/16 20:51 Last Admin: 09/03/16 20:58 Dose: 2 mg Hydromorphone HCl (Dilaudid) Confirm Administered Dose 2 mg .ROUTE .STK-MED ONE Stop: 09/03/16 20:54 Last Admin: 09/03/16 20:57 Dose: Not Given Hydromorphone HCl (Dilaudid) 2 mg PO Q4H PRN PRN Reason: Pain Last Admin: 09/04/16 05:54 Dose: 2 mg Hydromorphone HCl (Dilaudid) 2 mg IVPUSH Q2H PRN PRN Reason: Pain Last Admin: 09/06/16 02:01 Dose: 2 mg Hydromorphone HCl (Dilaudid) 4 mg PO Q4H PRN PRN Reason: Pain Last Admin: 09/06/16 14:01 Dose: 4 mg Hydromorphone HCl (Dilaudid) 2 mg PO Q4H PRN PRN Reason: Pain Last Admin: 09/07/16 05:08 Dose: 2 mg Hydroxyzine HCl (Atarax) 25 mg PO BEDTIME PRN PRN Reason: Insomnia Last Admin: 09/04/16 02:05 Dose: 25 mg Hydroxyzine HCl (Atarax) 25 mg PO Q6H PRN PRN Reason: Itching Last Admin: 09/05/16 01:08 Dose: 25 mg Vancomycin HCl 1.5 gm/ Sodium (Chloride) 250 mls @ 167 mls/hr IV Q24H [facility] Last Admin: 09/03/16 23:55 Dose: 167 mls/hr Piperacillin Sod/Tazobactam (Sod 3.375 gm/ Sodium Chloride) 50 mls @ 100 mls/ hr IV Q6H [facility] Last Admin: 09/04/16 01:05 Dose: 100 mls/hr Sodium Chloride (Normal Saline) 250 mls @ 100 mls/hr IV ASDIRECTED [facility] Last Admin: 09/05/16 05:38 Dose: 100 mls/hr Vancomycin HCl 1,000 mg/Vancomycin HCl 500 mg/ Sodium Chloride 500 mls @ 334.014 mls/hr IV Q24H [facility] Vancomycin HCl 1,000 mg/Vancomycin HCl 500 mg/ Sodium Chloride 500 mls @ 334.014 mls/hr IV Q24H [facility] Last Admin: 09/05/16 00:45 Dose: 334.014 mls/hr Miscellaneous Information (Remove Patch) 1 ea CATRACHITO NOW STA Stop: 09/04/16 09:22 Last Admin: 09/04/16 09:22 Dose: 1 ea Ondansetron HCl (Zofran Odt) 4 mg PO ONETIME [facility] Last Admin: 09/03/16 20:29 Dose: 4 mg Ondansetron HCl (Zofran) 4 mg IVPUSH Q6H PRN PRN Reason: Nausea/Vomiting Oxycodone/Acetaminophen (Percocet 325-5 Mg) 1 tab PO Q4H PRN PRN Reason: Pain Last Admin: 09/06/16 09:05 Dose: 1 tab Silver Sulfadiazine (Silvadene 1% Cream 400 Gm) 0 gm TOP DAILY PRN PRN Reason: skin irritation Sodium Chloride (Saline Flush) 10 ml FLUSH ASDIRECTED PRN PRN Reason: Keep Vein Open Last Admin: 09/05/16 05:30 Dose: 10 ml Zolpidem Tartrate (Ambien) 10 mg PO BEDTIME PRN PRN Reason: Insomnia - Exam General: alert, oriented, mild distress Extremities: other (Erythema with some weeping wounds left lower leg. I do not feel any fluctuant masses.) - Problem List & Annotations (1) Cellulitis and abscess of left leg SNOMED Code(s): 019844072 Code(s): L03.116 - CELLULITIS OF LEFT LOWER LIMB; L02.416 - CUTANEOUS ABSCESS OF LEFT LOWER LIMB Status: Acute Current Visit: Yes (2) Chronic acquired lymphedema SNOMED Code(s): 31594888 Code(s): I89.0 - LYMPHEDEMA, NOT ELSEWHERE CLASSIFIED Status: Acute Current Visit: Yes (3) Depression SNOMED Code(s): 68073266 Code(s): F32.9 - MAJOR DEPRESSIVE DISORDER, SINGLE EPISODE, UNSPECIFIED Status: Acute Current Visit: Yes - Problem List Review Problem List Initiated/Reviewed/Updated: Yes - My Orders Last 24 Hours: My Active Orders 09/06/16 17:56 Chest 2V [CR] Routine 09/06/16 17:57 Dextromethorphan/guaiFENesin [Robitussin DM] 5 ml PO Q4H PRN 09/07/16 09:10 Consult to Physician [CONS] Routine Extremity Non Vascular Lt [US] Routine 09/07/16 09:11 Notify Provider Consults [RC] ASDIRECTED HYDROmorphone [Dilaudid] 4 mg PO Q4H PRN - Plan Plan:: 1. Continue IV antibiotics. 2. Culture so far the wound is negative. Blood cultures negative. 3. I don't feel an abscess but there could well be one deep that were not seen. Some irregular ultrasound the lower leg. 4. Consult Dr. Mann surgery.
[2016-09-07] MEDS: Oxybutynin 5 MG Tab PO SCH ×2 (09:47→20:35)
[2016-09-07] MEDS: Escitalopram 20 MG Tab PO SCH (09:47)
[2016-09-07] MEDS: Enoxaparin 40 MG/0.4 ML Syringe SUBCUT SCH (09:47)
[2016-09-07] MEDS: Aspirin 81 MG Tab.EC PO SCH (09:47)
[2016-09-07] MEDS: Ferrous Sulfate 325 MG Tab PO SCH (09:47)
[2016-09-07] MEDS: Lisinopril 5 MG Tab PO SCH (09:47)
--- NOTE | 2016-09-07 11:47 | CR ---
INDICATION: Cough. CHEST: PA and lateral views of the chest were obtained. The lateral view is limited in that the posterior portion of the chest is not included on the study. Findings remain compatible with COPD. Large fixed hiatal hernia, ASHD with probable cardiomegaly and tortuous aorta calcified in the arch. Somewhat diminished bone density suggests the possibility of osteoporosis. Degenerative changes are noted in the lower thoracic spine. Upper lung field pulmonary vasculature is prominent, suggesting the possibility of CHF, but is less prominent than on the most recent examination of 2014. This examination is also compared with 12/14/2013. It is difficult to exclude pneumonia and pleuritis at the left lung base, with the overlying heart and lack of inclusion of the posterior chest on the lateral view. IMPRESSION: 1. ASHD with cardiomegaly and probable CHF. Appears less severe than on the last examination. 2. COPD. 3. Large fixed hiatal hernia. 4. Cannot exclude pneumonia and pleuritis at the left lung base. Lateral view of the chest, including the posterior portions of the chest may be helpful for confirmation. MTDD
[2016-09-07] MEDS: Silver Sulfadiazine 1% Crm 400 GM Jar TOP SCH ×2 (12:40→21:46)
--- NOTE | 2016-09-07 13:06 | CONS ---
DATE OF CONSULTATION: 09/07/2016 REASON FOR CONSULTATION: Persistent cellulitis and tenderness, left lower extremity. HISTORY OF PRESENT ILLNESS: This is a 75-year-old white female, who has a history of chronic lymph edema and skin changes in both of her lower extremities. Apparently, presented to the emergency department about a week ago with a complaint of erythema in her lower extremities and was given an antibiotic which did not respond. She is currently walking in her house in a mounted left leg on a chair and developed more erythema, swelling, and drainage of the left lower leg, especially in the lateral aspect near the martinez. She was presented to the emergency room and admitted for IV antibiotics and pain control. She denied any fever or chills. She has not noted to have an any type of marked leukocytosis. She was admitted and placed on IV antibiotics and apparently has not responded very well to her skin changes. She continues to complain of the pain in her extremity. Of note, her white count has been normal at 6.2 but this was noted to be several days ago. ALLERGIES: Terramycin. MEDICATIONS: Home medications included a citalopram 40 mg daily, baby aspirin daily, sulfasalazine had to be applied to her leg, Wellbutrin 150 mg p.o. b.i.d., Prinivil 5 mg p.o. daily, Tylenol with codeine No.3 one tablet p.o. three times a day, Lipitor 40 mg at bedtime, and an iron pill 324. Her current medications at the time of my evaluation included Robitussin 5 mL q.4 on a p.r.n. basis, Dilaudid 4 mg q.4 hours as needed for pain, piperacillin and tazobactam 3.375 g q.6 hours, MiraLAX 17 g p.o. daily, vancomycin with dosing being run by pharmacy, as well as Ambien 5 mg p.o. daily. PAST MEDICAL HISTORY: Significant for cataracts, hypertension, bilateral lymphedema, dyspnea, gastroesophageal reflux disease, urinary incontinence, recurrent UTIs, obesity, osteoarthritis, history of depression, anemia, insomnia, and psoriasis. PAST SURGICAL HISTORY: Significant for cataract surgery, vein stripping, as well as appendectomy, and bilateral knee replacement. FAMILY HISTORY: Noncontributory. She is a former smoker with a 20-pack year smoking history and currently does not drink. REVIEW OF SYSTEMS: HEENT: Grossly without complaints. She denies any dyspnea, chest pain, irregular heartbeats, or any GI issues. GE is positive for incontinence. Musculoskeletal and skin is noted for the pain in her lower extremities. PHYSICAL EXAMINATION: GENERAL: This is a well-developed, well-nourished, obese female appearing in no acute distress. VITAL SIGNS: Temperature is 36.7 degrees Celsius, she weighs 95.254 kg, blood pressure 153/67, pulse rate 87, respiratory rate 18, and O2 saturation of 95%. HEENT: Grossly within normal limits. LUNGS: Clear to auscultation. HEART: Regular rate and rhythm. ABDOMEN: Soft and nontender. EXTREMITIES: Evaluation of the bilateral lower extremities demonstrates bilateral erythema involving the lower half of the both extremities, she does have some slight skin breakdown on the left side with some weeping, which appears to be secondary to the trauma. There is some tenderness to palpation on the lateral aspect of the calf. The skin changes are consistent with hemosiderin deposits from with lymphedema/venous stasis disease. There was no pus on my exam. ASSESSMENT AND PLAN: Chronic lymphedema/venous stasis disease, possible cellulitis, possible abscess though given her normal white count, and being afebrile. At this point I do not think that this is the significant cause of her pain and in fact, her erythema could be explained by just her lymphedema, lymph return, and venous stasis in her extremities. She does have a superficial breakdown of the also consistent with lymphedema and venous stasis disease. In any event, it will take much longer to clear any type of the inflammation and infection, and I do not think she would ever get down to "normal-colored skin" in this area to the begin with. In any event, it appears that she does need a compressive therapy which she is currently not receiving. She has an ultrasound scheduled for her lower extremity later today and I will follow up after that study to see what is going on. If not, then I would probably recommend an Unna boot placement at least on that side. /[id number] /MODL
--- NOTE | 2016-09-07 15:10 | US ---
INDICATION: Cellulitis, question abscess, especially left lateral calf. NON-VASCULAR LEFT LOWER EXTREMITY ULTRASOUND: Utilizing 2-D real time and color flow imaging, examination of the lower extremities revealed extensive interstitial edema. However, no focal abscess formation could be identified. Blood flow is exuberant bilaterally, but much more prominent on the left. IMPRESSION: Increased blood flow, however, no abscess formation identified. Report was called to Dr. Lopez at 1350 hours, 09/07/2016. [facility]
[2016-09-07] MEDS ORDERED: Levofloxacin/Dextrose 5%-Water 500 MG in Premix Bag 1 BAG IV SCH (18:00)
--- NOTE | 2016-09-07 18:17 | PCM.SN ---
- Free Text/Narrative Note: Radiologist report no abscess. Some interstitial swelling. Discussed with Dr. Mann. He will try doing livable. He suggested changing IV antibiotics to Levaquin and metronidazole. Stop vancomycin and Unasyn. No signs of MRSA at this point. Continue to try to control her pain with Dilaudid.
[2016-09-07] MEDS: metroNIDAZOLE/Normal Saline 500 MG in Premix Bag 1 BAG IV SCH (19:23)
[2016-09-07] MEDS: Sodium Chloride 0.9% 250 ML IV SCH (20:30)
[2016-09-07] MEDS: atorvaSTATin 40 MG Tab PO SCH (20:35)
[2016-09-07] MEDS: Sodium Chloride 0.9% 10 ML Syringe FLUSH PRN (21:47)
[2016-09-08] MEDS: metroNIDAZOLE/Normal Saline 500 MG in Premix Bag 1 BAG IV SCH ×3 (01:25→18:14)
[2016-09-08] MEDS: Aspirin 81 MG Tab.EC PO SCH (09:11)
[2016-09-08] MEDS: Oxybutynin 5 MG Tab PO SCH ×2 (09:11→20:06)
[2016-09-08] MEDS: Enoxaparin 40 MG/0.4 ML Syringe SUBCUT SCH (09:11)
[2016-09-08] MEDS: Ferrous Sulfate 325 MG Tab PO SCH (09:11)
[2016-09-08] MEDS: Escitalopram 20 MG Tab PO SCH (09:11)
[2016-09-08] MEDS: Lisinopril 5 MG Tab PO SCH (09:11)
--- NOTE | 2016-09-08 11:06 | PN ---
DATE SEEN: 09/08/2016 REASON FOR VISIT: Leg pain. HISTORY OF PRESENT ILLNESS: This is a 75-year-old female, who has had pain in the leg. She feels better today after change of the antibiotic and Dilaudid for treatment of pain. No nausea or vomiting. MEDICATIONS: Reviewed. ALLERGIES: Reviewed. SOCIAL HISTORY: Lives at home. PHYSICAL EXAMINATION: GENERAL: Alert. VITAL SIGNS: Blood pressure is 171/87, pulse is 67, and oral temperature 97.9. CARDIOVASCULAR: Normal. RESPIRATORY SYSTEM: Normal. EXTREMITIES: Marked peripheral edema, nonpitting. She has Ishaan wraps on. MENTAL STATUS: Alert. LABORATORY DATA: No new labs today. Microbiology showed no growth in blood for more than four days. An ultrasound that was done yesterday did not show any abscess formation in the legs. IMPRESSION: 1. Chronic lymphedema. 2. Cellulitis, bilateral. 3. Hypertension. 4. Coronary artery disease. 5. Depression and anxiety. PLAN: We will continue current therapy. I will plan to switch her to oral Levaquin. I hope that she will be able to go home tomorrow. We will continue the oral Dilaudid for pain control. /[id number] MIKE/DIONTE
--- NOTE | 2016-09-08 11:44 | ER ---
DATE SEEN: 09/03/2016 TIME SEEN: 2000 hours. HISTORY OF PRESENT ILLNESS: This 75-year-old woman complains of left leg pain, which she relates to chronic lymphedema that has occurred since she had a 2003/2004 knee surgery. She notes, she cannot remember what year it happened, but she notes, she had bilateral total knee arthroplasties a year prior, so she thinks this is either 2003 or 2004 or 2004 and 2005. No history of recent falls. She notes she is exquisitely tender in the left lower extremity. She has weeping lesions on left lower extremity and it is difficult for her to walk because of the pain. She denies shingles. PAST MEDICAL HISTORY: She has obesity over 100 kilos. Coronary artery disease. Previous angiography was negative. She is not diabetic. Chronic lymphedema ever since she had bilateral total knee arthroplasties. No history of shingles. Ever since she had problems with treatment of her bladder incontinence with anticholinergic, she has had dry mouth. She was treated for poor dentition. She has bladder incontinence. No previous history of DVT. She had a herpes shot/ vaccination in the past and two pneumococcal vaccinations, as well as influenza. She was seen 08/29/2016 for her pain, given a pain shot of Percocet; it has helped, but only lasted for several days and pain returned. She was advised to follow up with Dr. Lopez the following day. The patient did not. When she arrived, I noticed a large 6-inch Ishaan was semi wrapped around her right lower extremity, almost dangling there. Her son took me out of the room and told me that she is very noncompliant, she has not been using the wraps as she is supposed to be using. She did not follow up with Dr. Lopez the following day, and was not compliant with using her wraps on her legs to diminish the swelling. When confronted, the patient noted that she had not wrapped tightly because she had so much pain in her legs. She cannot stand the pain and discomfort with the wrap. She has stopped walking because the pain is so great. She has more or less been lying in bed much of the time or sitting in a lazy boy chair. REVIEW OF SYSTEMS: Negative except for as noted above. PHYSICAL EXAMINATION: VITAL SIGNS: Blood pressure 129/56, heart rate 74 and regular, respirations 18, oxygen saturation 85% on room air. This went up to 92% on room air, temperature 36.9 degrees centigrade. The patient estimates to be about 100 kilos. GENERAL: Patient is in mild distress. She is gripping the side rails of the gurney as firmly as she can because she has so much pain and discomfort. HEENT: PERRLA intact. Pharynx without abnormality. She is overweight. She is wearing a black dress. NECK: No thyromegaly or masses. No cervical adenopathy. LUNGS: Clear to auscultation without rales, rhonchi, or wheezes. HEART: S1, S2. No irregular rate and rhythm. ABDOMEN: Soft. No guarding. No abdominal discomfort. No CVA percussion tenderness. EXTREMITIES: Lower extremities marked thickening, induration, chronic lymphedema, left lower extremity, the same as the right. There are a couple of focal areas of drainage and moistness. Moderate erythema with marked edema and is exquisitely tender to superficial touch of the left lower extremity, especially the open lesions. Right lower extremity: No evidence of open lesions, just has chronic crusting. Both legs have stasis dermatitis, induration, and no pitting edema, but firm edema. Lower extremities reflecting the lymphedema. No lymphangitis. Gastroc is nontender above the 5th superior 50% of the gastroc and the popliteal fossa is negative. No tenderness in the venous structures from the groin to the mid gastroc left-side or entire right lower leg. LABORATORY STUDIES: White count 10,500. PMNs 73, lymphocytes 11, platelets 406,000, hemoglobin of 12, D-dimer is 399. Complete metabolic panel is normal except for BUN and creatinine ratio slightly elevated at 22.5 suggesting dehydration, under hydration. Creatinine is 0.8. BUN is 18. Point of care glucose 141, calcium 8.5 slightly low, ALT slightly low at 13, C-reactive protein 2.1. ASSESSMENT: 1. Cellulitis left lower extremity. 2. Chronic lymphedema. 3. Rule out herpes in left lower leg. The probability is low, since she has been vaccinated for herpes. 4. The patient has also been vaccinated for pneumonias and also influenzas. 5. Marked obesity - guessing as 100 kilos. 6. Rule out deep venous thrombosis. The probability is low since the D-dimer is normal. 7. The chronic lymphedema occurred after her lower extremity surgery, but she also notes she had varicose vein surgery, this has magnified the potential vascular interruption in the left lower extremity, compound stress of orthopedic surgery. 8. History of coronary artery disease. 9. History of poor dentition after she started anticholinergic for bladder incontinence. She has stopped this and she still has her chronic dry mouth. 10.Coronary artery disease and normal previous coronary artery catheterization several years ago. 11.Hypertension. PLAN: 1. Treat as cellulitis; started with vancomycin and Zosyn, 1.5 g of vancomycin, (15 mg/kilos for an estimated 100 kilos), also 3.375 mg of Zosyn. Pharmacist to help dose with the vancomycin. 2. She has mild dehydration and no leukocytosis. The latter would suggest this is more a vascular problem, but at this point, because of swelling deterioration of left lower extremity, I chose to aggressively treat it with antibiotics. /[id number] TAYO/DIONTE
[2016-09-08] MEDS: Sodium Chloride 0.9% 10 ML Syringe FLUSH PRN ×2 (12:31→20:37)
[2016-09-08] MEDS: Silver Sulfadiazine 1% Crm 400 GM Jar TOP SCH ×2 (15:30→20:06)
--- NOTE | 2016-09-08 17:47 | PCM.SN ---
- Free Text/Narrative Note: Pt reports that her legs are feeling better. Is apparently tolerating mic wraps, which is what she needs. will continue to follow.
[2016-09-08] MEDS: Sodium Chloride 0.9% 250 ML IV SCH (18:16)
[2016-09-08] MEDS ORDERED: Levofloxacin/Dextrose 5%-Water 500 MG in Premix Bag 1 BAG IV SCH (20:00)
[2016-09-08] MEDS: atorvaSTATin 40 MG Tab PO SCH (20:05)
[2016-09-08] MEDS: Cetirizine 10 MG Tab PO PRN (20:37)
[2016-09-08] MEDS: Zolpidem 5 MG Tab PO PRN (23:40)
[2016-09-09] MEDS: metroNIDAZOLE/Normal Saline 500 MG in Premix Bag 1 BAG IV SCH (02:11)
[2016-09-09] MEDS: Sodium Chloride 0.9% 10 ML Syringe FLUSH PRN (02:19)
[2016-09-09] MEDS: Aspirin 81 MG Tab.EC PO SCH (08:05)
[2016-09-09] MEDS: Ferrous Sulfate 325 MG Tab PO SCH (08:05)
[2016-09-09] MEDS: Escitalopram 20 MG Tab PO SCH (08:06)
[2016-09-09] MEDS: Lisinopril 5 MG Tab PO SCH (08:07)
[2016-09-09] MEDS: Enoxaparin 40 MG/0.4 ML Syringe SUBCUT SCH (08:07)
[2016-09-09] MEDS: Oxybutynin 5 MG Tab PO SCH ×2 (08:07→20:48)
[2016-09-09] MEDS: Silver Sulfadiazine 1% Crm 400 GM Jar TOP SCH (08:08)
[2016-09-09] MEDS: Gabapentin 300 MG Cap PO SCH ×3 (09:38→20:47)
[2016-09-09] MEDS: metroNIDAZOLE 500 MG Tab PO SCH ×2 (09:38→17:33)
--- NOTE | 2016-09-09 11:22 | PN ---
DATE SEEN: 09/09/2016 CHIEF COMPLAINT: Pain, left leg. HISTORY OF PRESENT ILLNESS: A 75-year-old who has pain in the left leg due to venous stasis ulcer. She complains that overnight, the pain was moderate to severe. She tried walking with no relief. She has no fever or chills, neither does she have any chest pain. PAST MEDICAL HISTORY: Coronary artery disease, obesity, and depression. PHYSICAL EXAMINATION: VITAL SIGNS: Blood pressure is 151/70, temperature is 98.6, oxygenation 92% on room air. EXTREMITIES: Leg wrapped in an Ishaan wrap. MENTAL STATUS: Alert. SKIN: No pallor or jaundice. LABORATORY DATA: She had a normal white cell count today of 5.8, hemoglobin 10.9, and potassium is 3.4. IMPRESSION: 1. Venous stasis ulcer. 2. Chronic lymphedema. 3. Hypertension. 4. Depression. 5. History of coronary artery disease. PLAN: Continue with pain control with Dilaudid. I discussed changing antibiotics to orals and that will be done today. My goal is to send her home either later today or tomorrow. She could stay one day to make sure that the oral medications are working, and then we can discharge her home tomorrow. /[id number] MIKE/DIONTE
[2016-09-09] MEDS ORDERED: Levofloxacin 500 MG Tab PO SCH (20:00)
[2016-09-09] MEDS: atorvaSTATin 40 MG Tab PO SCH (20:47)
[2016-09-10] MEDS: metroNIDAZOLE 500 MG Tab PO SCH ×2 (02:34→10:43)
[2016-09-10] MEDS: guaiFENesin 100 MG/5 ML Soln 5 ML UD Cup PO PRN (02:37)
[2016-09-10] MEDS: Ferrous Sulfate 325 MG Tab PO SCH (09:05)
[2016-09-10] MEDS: Escitalopram 20 MG Tab PO SCH (09:06)
[2016-09-10] MEDS: Aspirin 81 MG Tab.EC PO SCH (09:06)
[2016-09-10] MEDS: Enoxaparin 40 MG/0.4 ML Syringe SUBCUT SCH (09:07)
[2016-09-10] MEDS: Oxybutynin 5 MG Tab PO SCH (09:09)
[2016-09-10] MEDS: Gabapentin 300 MG Cap PO SCH ×2 (09:09→14:02)
[2016-09-10] MEDS: Lisinopril 5 MG Tab PO SCH (09:09)
[2016-09-10 09:18] VITALS: BP 140/55
--- NOTE | 2016-09-10 09:55 | PN ---
DATE SEEN: 09/10/2016 REASON FOR VISIT: Cellulitis. HISTORY OF PRESENT ILLNESS: This is a 75-year-old female. She is here for cellulitis and wound on the left leg. She has lymphedema, chronic. She complains of feeling sad. Her medications were changed from Wellbutrin and Celexa to Lexapro. She cried a lot last evening but slept well later. Today, she has no chest pain. No fever or chills. MEDICATIONS: Please see the nurse's notes. SOCIAL HISTORY: Does not smoke. Lives alone with her son. PHYSICAL EXAMINATION: VITAL SIGNS: Blood pressure is 139/46 and temp is 97.5. PSYCH: Mental status alert. NEUROLOGIC: No focal findings. CARDIOVASCULAR: Normal. LABORATORY FINDINGS: No new labs today. White cell count was 5.8 yesterday. IMPRESSION: 1. Cellulitis, left lower leg. 2. Chronic lymphedema. 3. Major depression. 4. Hypertension. 5. Obesity. PLAN: My plan is to discharge home today on oral medications. I will restart her Wellbutrin. /[id number] MIKE/DIONTE
[2016-09-10] MEDS ORDERED: Acetaminophen/oxyCODONE 325-5 MG Tab PO ONE (17:00)
--- NOTE | 2016-09-11 02:43 | DISCH ---
DISCHARGE DATE: 09/10/2016 REASON FOR ADMISSION: 1. Cellulitis lower extremities. 2. Venous stasis ulcer, left leg. 3. Chronic lymphedema, bilateral. 4. Obesity. 5. Hypertension. 6. Depression. 7. Chronic pain in the legs. CONSULTATIONS: Dr. Mann. BRIEF HISTORY AND HOSPITAL COURSE: A 75-year-old female, who came in because of bilateral leg swelling, weeping wounds, and diagnosis of cellulitis. She was started on vancomycin and Zosyn initially, symptoms did not improve, this was changed eventually to Levaquin and Flagyl. Dr. Mann saw her, attempted dressing, and will be seen in the office for further treatment with an Unna boot. Pain was difficult to control, initially tried morphine and eventually Dilaudid was able to help every 4 hours p.r.n. I started Neurontin before discharge. In addition, she felt sad most of the period she was in the hospital and medications were initially changed from Wellbutrin and Celexa to Lexapro, but I added Wellbutrin before she left because she was feeling increasingly sad. However, no suicidal ideation was made. She was offered Home Health but declined because the son would do the dressing at home. DISCHARGE MEDICATIONS: 1. Levaquin 500 mg a day. 2. Flagyl 500 mg three times a day. 3. Dilaudid 4 mg p.o. every 6 hours p.r.n. 4. Lexapro 10 mg a day. 5. Wellbutrin 300 mg a day. 6. Oxybutynin 10 mg b.i.d. 7. Lipitor 40 mg a day. FOLLOWUP: She will see Dr. Lopez or myself in the office within 1 week of discharge. Please note that I spent more than 45 minutes in the discharge of the patient. /[id number] MIKE/DIONTE
== END 2016-09-10 17:00 | disposition home or self-care (01) | DRG 603 ==
LOC: FB.ED 19:49 → FB.MS 20:40
PROVIDERS: ADMIT Emergency Medicine; ATTEND Family Medicine
DX: L03.116 Cellulitis of left lower limb (principal); I89.0 Lymphedema, not elsewhere classified; E66.9 Obesity, unspecified; I83.029 Varicose veins of left lower extremity with ulcer of unspecified site; G89.29 Other chronic pain; F32.9 Major depressive disorder, single episode, unspecified; F41.9 Anxiety disorder, unspecified; I25.10 Atherosclerotic heart disease of native coronary artery without angina pectoris; I10 Essential (primary) hypertension; I25.2 Old myocardial infarction; Z87.891 Personal history of nicotine dependence; K21.9 Gastro-esophageal reflux disease without esophagitis; R32 Unspecified urinary incontinence; M19.90 Unspecified osteoarthritis, unspecified site; D64.9 Anemia, unspecified; L40.9 Psoriasis, unspecified; Z96.653 Presence of artificial knee joint, bilateral; Z79.82 Long term (current) use of aspirin; Z79.899 Other long term (current) drug therapy; Z88.8 Allergy status to other drugs, medicaments and biological substances
CPT/HCPCS: 36415; 80053; 83605; 86140; 87040; 96372; 99285; A9270; J1170; 71020; 76881-LT; 80048; 80202; 81001; 82962; 85025; 85379; 87070; 87205; 87252; 87254; 93005; 99284; J1650; J1956; J2543; J3370; J7040; J7050

== ENCOUNTER 2017-01-01 22:07 | Inpatient (IN) | payer MEDICARE, OTHER ==
--- NOTE | 2017-01-01 22:38 | EDM.PDOC ---
ED HPI GENERAL MEDICAL PROBLEM - General Chief Complaint: Lower Extremity Injury/Pain Stated Complaint: LEGS SWOLLEN, DRAINING Time Seen by Provider: 01/01/17 22:20 Source of Information: Reports: Patient, Old Records History Limitations: Reports: No Limitations - History of Present Illness INITIAL COMMENTS - FREE TEXT/NARRATIVE: 76 yo female with chronic lymphedema of her legs presents with bilateral leg redness and open draining wounds. She states that she has been admitted for this in the past. She has not had any fevers. This has been coming on for about a week, but has not discussed with her doctor. Onset: Gradual Onset Date: 12/26/16 Duration: Day(s):, Getting Worse Location: Reports: Lower Extremity, Left, Lower Extremity, Right Quality: Reports: Dull Severity: Moderate Improves with: Reports: None Worsens with: Reports: Other (time) Context: Reports: Other (Hx of cellulitis of her legs and chronic lymphedema.) Associated Symptoms: Reports: No Other Symptoms. 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 (see below) (none) - Related Data Allergies Allergy/AdvReac Type Severity Reaction Status Date / Time oxytetracycline Allergy Mild Dizziness Verified 01/01/17 22:27 [From Terramycin] oxytetracycline HCl Allergy Mild Dizziness Verified 01/01/17 22:27 [From Terramycin] Home Meds: Home Meds Aspirin [Low Dose Aspirin EC] 81 mg PO DAILY 12/09/13 [History] Oxybutynin 10 mg PO BID 12/09/13 [History] buPROPion HCl [Wellbutrin SR] 150 mg PO BID 12/09/13 [History] Lisinopril [Prinivil] 5 mg PO DAILY #30 tablet 12/16/13 [Rx] atorvaSTATin [Lipitor] 40 mg PO DAILY 08/29/16 [History] Ferrous Sulfate 324 mg PO DAILY 09/03/16 [History] Carboxymethylcellulose Sodium [Refresh Tears] 15 ml OP ASDIRECTED PRN 09/04/16 [ History] Escitalopram [Lexapro] 20 mg PO DAILY #30 tablet 09/10/16 [Rx] Gabapentin [Neurontin] 300 mg PO TID #90 cap 09/10/16 [Rx] metroNIDAZOLE [Flagyl] 500 mg PO Q8H #30 tablet 09/10/16 [Rx] Past Medical History HEENT History: Reports: Cataract Cardiovascular History: Reports: Hypertension, NM Other Cardiovascular History: History of Lymphedema. Respiratory History: Reports: SOB Gastrointestinal History: Reports: GERD Other Gastrointestinal History: Obesity. 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 Psychiatric History: Reports: Depression Hematologic History: Reports: Anemia Oncologic (Cancer) History: Reports: Other (See Below) Other Oncologic History: skin CA Dermatologic History: Reports: Cellulitis, Psoriasis Other Dermatologic History: History of [place] intertrigo. - Infectious Disease History Infectious Disease History: Reports: Chicken Pox - Past Surgical History HEENT Surgical History: Reports: Cataract Surgery, Tonsillectomy Cardiovascular Surgical History: Reports: Other (See Below) Other Cardiovascular Surgeries/Procedures: vein stripping GI Surgical History: Reports: Appendectomy Musculoskeletal Surgical History: Reports: Knee Replacement Social & Family History - Family History Family Medical History: Noncontributory - Tobacco Use Smoking Status *Q: Former Smoker Years of Tobacco use: 20 Used Tobacco, but Quit: Yes Month Tobacco Last Used: 1995 Second Hand Smoke Exposure: No - Caffeine Use Caffeine Use: Reports: Coffee - Alcohol Use Days Per Week of Alcohol Use: 0 - Recreational Drug Use Recreational Drug Use: No Review of Systems - Review of Systems Review Of Systems: See Below Constitutional: Reports: No Symptoms Eyes: Reports: No Symptoms Ears: Reports: No Symptoms Nose: Reports: No Symptoms Mouth/Throat: Reports: No Symptoms Respiratory: Reports: No Symptoms Cardiovascular: Reports: No Symptoms GI/Abdominal: Reports: No Symptoms Genitourinary: Reports: No Symptoms Musculoskeletal: Reports: No Symptoms Skin: Reports: Erythema, Wound Neurological: Reports: No Symptoms Psychiatric: Reports: No Symptoms ED EXAM, GENERAL - Physical Exam Exam: See Below Exam Limited By: No Limitations General Appearance: Alert, WD/WN, No Apparent Distress Eye Exam: Bilateral Eye: Normal Inspection Ears: Normal External Exam, Normal Canal, Hearing Grossly Normal Ear Exam: Bilateral Ear: Auricle Normal, Canal Normal Nose: Normal Inspection, Normal Mucosa, No Blood Throat/Mouth: Normal Inspection, Normal Lips, Normal Oropharynx, Normal Voice, No Airway Compromise Head: Atraumatic, Normocephalic Neck: Normal Inspection, Supple, Non-Tender Respiratory/Chest: No Respiratory Distress, Lungs Clear, Normal Breath Sounds, No Accessory Muscle Use Cardiovascular: Regular Rate, Rhythm, No Edema GI/Abdominal: Normal Bowel Sounds, Soft, Non-Tender, No Distention Back Exam: Normal Inspection. No: CVA Tenderness (R), CVA Tenderness (L) Extremities: Pedal Edema, Leg Pain, Increased Warmth, Redness Psychiatric: Normal Affect, Normal Mood Skin Exam: Warm, Erythema, Increased Warmth, Wound/Incision (Markedly swollen legs bilaterally. It appears she has had a tourniquet effect from her compressive dressing/garment in that her ankles and distal legs are very constricted relative to the rest of her leg(s). The constricted areas are open and weeping with surrounding erythema bilaterally. ) Lymphatic: No Adenopathy Course - Orders/Labs/Meds Orders: Active Orders 24 hr Category Date Time Status BASIC METABOLIC PANEL,BMP [CHEM] Stat Lab 01/01/17 22:31 Ordered CBC W/O DIFF,HEMOGRAM [HEME] Stat Lab 01/01/17 22:31 Ordered CULTURE BLOOD [BC] Stat Lab 01/01/17 22:31 Ordered UA W/MICROSCOPIC [URIN] Stat Lab 01/01/17 22:31 Uncollected Sodium Chloride 0.9% [Saline Flush] Med 01/01/17 22:32 Active 10 ml FLUSH ASDIRECTED PRN Saline Lock Insert [OM.PC] Routine Oth 01/01/17 22:32 Ordered Medication Orders Sodium Chloride (Saline Flush) 10 ml FLUSH ASDIRECTED PRN PRN Reason: Keep Vein Open Meds: Medications Generic Name Dose Route Start Last Admin Trade Name Freq PRN Reason Stop Dose Admin Sodium Chloride 10 ml 01/01/17 22:32 Saline Flush FLUSH ASDIRECTED PRN Keep Vein Open Departure - Departure Time of Disposition: 23:00 Disposition: Admitted As Inpatient 67 Condition: Fair Clinical Impression: Cellulitis of leg without foot, left, Cellulitis of leg without foot, right Clinical Impression: (Ruled Out): Cellulitis of left leg - Discharge Information Referrals: Lai Lopez MD [Primary Care Provider] - - My Orders Last 24 Hours: My Active Orders 01/01/17 22:31 BASIC METABOLIC PANEL,BMP [CHEM] Stat CBC W/O DIFF,HEMOGRAM [HEME] Stat CULTURE BLOOD [BC] Stat UA W/MICROSCOPIC [URIN] Stat 01/01/17 22:32 Sodium Chloride 0.9% [Saline Flush] 10 ml FLUSH ASDIRECTED PRN Saline Lock Insert [OM.PC] Routine - Assessment/Plan Last 24 Hours: My Active Orders 01/01/17 22:31 BASIC METABOLIC PANEL,BMP [CHEM] Stat CBC W/O DIFF,HEMOGRAM [HEME] Stat CULTURE BLOOD [BC] Stat UA W/MICROSCOPIC [URIN] Stat 01/01/17 22:32 Sodium Chloride 0.9% [Saline Flush] 10 ml FLUSH ASDIRECTED PRN Saline Lock Insert [OM.PC] Routine
[2017-01-01] MEDS ORDERED: Magnesium Hydroxide 400 MG/5 ML Susp 30 ML Cup PO PRN (23:04)
[2017-01-01] MEDS ORDERED: Ondansetron 4 MG Tab.DIS PO PRN (23:04)
[2017-01-01] MEDS ORDERED: Piperacillin/Tazobactam 3.375 GM in Sodium Chloride 0.9% 50 ML IV SCH (23:15)
[2017-01-01] MEDS ORDERED: Sodium Chloride 0.9% 250 ML IV SCH (23:45)
[2017-01-01] MEDS: Piperacillin/Tazobactam 3.375 GM in Sodium Chloride 0.9% 50 ML IV SCH (23:55)
[2017-01-02] MEDS: Acetaminophen/HYDROcodone 325-5 MG Tab PO PRN ×2 (00:51→22:55)
[2017-01-02] MEDS: Enoxaparin 40 MG/0.4 ML Syringe SUBCUT SCH ×2 (00:57→09:06)
[2017-01-02] MEDS ORDERED: Zolpidem 10 MG Tab PO ONE (01:20)
[2017-01-02] MEDS: Sodium Chloride 0.9% 10 ML Syringe FLUSH PRN (04:11)
[2017-01-02] MEDS: Piperacillin/Tazobactam 3.375 GM in Sodium Chloride 0.9% 50 ML IV SCH (05:57)
--- NOTE | 2017-01-02 09:13 | PCM.HP ---
H&P History of Present Illness - General Date of Service: 01/02/17 Admit Problem/Dx: Admission Diagnosis/Problem Bilateral Lymphedema with open ulcerations and early cellulitis Source of Information: Patient, Old Records, Provider History Limitations: Reports: No Limitations - History of Present Illness Initial Comments - Free Text/Narative: Patient is a 76 yo female who has struggled with lymphedema since her bilat knee replacement in . She was last in with lower ext cellulitis in July and was last seen in the clinic in August, when she was advised to continue with LE tx through PT and doesn't appear to have followed up. She was tx with ceftin at that time. She now presents with a week+ of bilateral increased pain and swelling, bleeding and open sores. She tells me 2 weeks ago her legs "looked good" and didn't have any open sores. No change in diet or activity. Mostly sits at home with her feet up. Her son takes care of her and doesn't want her walking because her legs swell. Bilateral Lower Leg Pain Score (Numeric/FACES): 2 - Related Data Allergies/Adverse Reactions: Allergies Allergy/AdvReac Type Severity Reaction Status Date / Time oxytetracycline Allergy Mild Dizziness Verified 01/01/17 22:27 [From Terramycin] oxytetracycline HCl Allergy Mild Dizziness Verified 01/01/17 22:27 [From Terramycin] Home Medications: Home Meds Aspirin [Low Dose Aspirin EC] 81 mg PO DAILY 12/09/13 [History] Oxybutynin 10 mg PO BID 12/09/13 [History] buPROPion HCl [Wellbutrin SR] 150 mg PO BID 12/09/13 [History] atorvaSTATin [Lipitor] 40 mg PO DAILY 08/29/16 [History] Ferrous Sulfate 324 mg PO DAILY 09/03/16 [History] Carboxymethylcellulose Sodium [Refresh Tears] 1 drop EYEBOTH ASDIRECTED PRN 12/12 [History] Escitalopram [Lexapro] 20 mg PO DAILY #30 tablet 09/10/16 [Rx] Cetirizine [ZyrTEC] 10 mg PO DAILY PRN 01/02/17 [History] Metoprolol Succinate 25 mg PO DAILY 01/02/17 [History] Nitroglycerin 0.4 mg SL Q5M PRN 01/02/17 [History] hydrOXYzine HCl [hydrOXYzine] 25 mg PO QID PRN 01/02/17 [History] Past Medical History HEENT History: Reports: Cataract, Impaired Vision Other HEENT History: wears glasses Cardiovascular History: Reports: Hypertension, NM Other Cardiovascular History: History of Lymphedema. Respiratory History: Reports: SOB Gastrointestinal History: Reports: GERD Other Gastrointestinal History: Obesity. 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 Psychiatric History: Reports: Depression Hematologic History: Reports: Anemia Oncologic (Cancer) History: Reports: Other (See Below) Other Oncologic History: skin CA Dermatologic History: Reports: Cellulitis, Chronic Cellulitis, Psoriasis, Other (See Below) Other Dermatologic History: History of [place] intertrigo open .ulcer like lesions on lower legs bilateral - Infectious Disease History Infectious Disease History: Reports: Chicken Pox, Measles, Mumps - Past Surgical History HEENT Surgical History: Reports: Cataract Surgery, Tonsillectomy Cardiovascular Surgical History: Reports: Other (See Below) Other Cardiovascular Surgeries/Procedures: vein stripping GI Surgical History: Reports: Appendectomy Female Surgical History: Reports: Hysterectomy Musculoskeletal Surgical History: Reports: Knee Replacement Social & Family History - Family History Family Medical History: Noncontributory HEENT: Reports: None Cardiac: Reports: None Respiratory: Reports: None GI: Reports: None : Reports: None OBGYN: Reports: None Musculoskeletal: Reports: None Neurological: Reports: None Psychiatric: Reports: None Endocrine/Metabolic: Reports: None Hematologic: Reports: None Dermatologic: Reports: None Oncologic: Reports: Colon, Pancreatic - Tobacco Use Smoking Status *Q: Former Smoker Years of Tobacco use: 20 Used Tobacco, but Quit: No Month Tobacco Last Used: 1995 Second Hand Smoke Exposure: No - Caffeine Use Caffeine Use: Reports: None - Alcohol Use Days Per Week of Alcohol Use: 0 - Recreational Drug Use Recreational Drug Use: No H&P Review of Systems - Review of Systems: Review Of Systems: See Below General: Reports: No Symptoms (except weakness, shakiness.) HEENT: Reports: No Symptoms Pulmonary: Reports: No Symptoms Cardiovascular: Reports: No Symptoms Gastrointestinal: Reports: No Symptoms Genitourinary: Reports: Urgency (chronic), Incontinence Musculoskeletal: Reports: No Symptoms Skin: Reports: Other (LE changes as noted above in HPI.) Psychiatric: Reports: No Symptoms Neurological: Reports: No Symptoms Hematologic/Lymphatic: Reports: Anemia Immunologic: Reports: No Symptoms Exam - Exam Exam: See Below - Vital Signs Vital Signs: Last Vital Signs Temp 36.9 C 01/02/17 06:00 Pulse 79 01/02/17 06:00 Resp 16 01/02/17 06:00 BP 112/64 01/02/17 06:00 Pulse Ox 94 L 01/02/17 06:00 Weight: 107.7 kg - Exam Quality Assessment: Skin Breakdown General: Alert, Oriented, Cooperative HEENT: PERRLA Neck: Supple Lungs: Clear to Auscultation, Normal Respiratory Effort Cardiovascular: Regular Rate, Regular Rhythm, Normal S1, Normal S2 GI/Abdominal Exam: Normal Bowel Sounds, Soft, Non-Tender, No Distention Back Exam: Normal Inspection Extremities: Other (Bilaterally chronic erythema, stasis changes. Starting at the ankles and extending proximally bilaterally, she has bloody wounds which are not pussy or draining but have clearly recently bled. Mildly tender but this area is less edematous than the feet and above the wraps. The redness per patient is chronic, the open sores are reopened with this last week's episode. See photos on chart.) Psychiatric: Alert, Normal Affect, Normal Mood - Patient Data Lab Results Last 24 hrs: Laboratory Results - last 24 hr 01/02/17 Range/Units 01:00 Urine Color Yellow (YELLOW) Urine Appearance Slightly cloudy (CLEAR) Urine pH 5.0 (5.0-6.5) Ur Specific [place] 1.020 (1.010-1.025) Urine Protein Negative (NEGATIVE) mg/dL Urine Glucose (UA) Normal (NEGATIVE) mg/dL Urine Ketones Negative (NEGATIVE) mg/dL Urine Occult Blood Negative (NEGATIVE) Urine Nitrite Negative (NEGATIVE) Urine Bilirubin Negative (NEGATIVE) Urine Urobilinogen Normal (NEGATIVE) mg/dL Ur Leukocyte Esterase Negative (NEGATIVE) Urine RBC 0-5 (0) Urine WBC 0-5 (0) Ur Squamous Epith Cells Moderate H (NS,R,O) Urine Bacteria Few H (NS) Urine Mucus Few H (NS) Result Diagrams: 01/01/17 22:40 01/01/17 22:40 *Q Meaningful Use (ADM) - VTE *Q VTE Criteria *Q: - Stroke *Q Stroke Criteria *Q: - AMI *Q AMI Criteria *Q: - Problem List (1) Chronic acquired lymphedema SNOMED Code(s): 37692260 ICD Code: I89.0 - LYMPHEDEMA, NOT ELSEWHERE CLASSIFIED Status: Acute Current Visit: No Problem Details: Treatment mainstay is compression. Recommended silvadene, telfa and mic wraps. Wrap from toes, not from ankle. (2) Cellulitis SNOMED Code(s): 202599616 ICD Code: L03.90 - CELLULITIS, UNSPECIFIED Status: Acute Current Visit: No Problem Details: This looks more like skin breakdown and patient has no systemic sxs. Will use double PO therapy to cover for MRSA with augmentin and bactrim. Stop IV abx at this time. (3) CAD (coronary artery disease) SNOMED Code(s): 94336074 ICD Code: I25.10 - ATHSCL HEART DISEASE OF [place] CORONARY ARTERY W/O ANG PCTRS Status: Acute Current Visit: Yes Problem Details: Continue outpatient meds. Patient denies hx of HTN and hyperlipidemia. (4) Urge incontinence of urine SNOMED Code(s): 40819557 ICD Code: N39.41 - URGE INCONTINENCE Status: Acute Current Visit: Yes Problem Details: Continue oxybutynin. (5) DVT prophylaxis SNOMED Code(s): 705601800 ICD Code: [id number] - Status: Acute Current Visit: Yes Problem Details: Lovenox. Problem List Initiated/Reviewed/Updated: Yes Orders Last 24hrs: Active Orders 24 hr Category Date Time Status Patient Status [ADT] Routine ADT 01/01/17 23:04 Active Bedrest [RC] ASDIRECTED Care 01/02/17 05:22 Active Blood Glucose Check, Bedside [RC] BIDMEALS Care 01/01/17 23:04 Inactive Height and Weight [RC] DAILY Care 01/01/17 23:04 Active Intake and Output [RC] QSHIFT Care 01/01/17 23:04 Active Oxygen Therapy [RC] PRN Care 01/01/17 23:01 Inactive Oxygen Therapy [RC] PRN Care 01/01/17 23:04 Active VTE/DVT Education [RC] Per Unit Routine Care 01/01/17 23:01 Active VTE/DVT Education [RC] Per Unit Routine Care 01/01/17 23:04 Inactive Vital Signs [RC] Q4H Care 01/01/17 23:01 Active Vital Signs [RC] Q4H Care 01/01/17 23:04 Inactive Acetaminophen/HYDROcodone [Kechi 325-5 MG] Med 01/01/17 23:10 Active 1 tab PO Q4H PRN Enoxaparin [Lovenox] Med 01/01/17 23:15 Active 40 mg SUBCUT DAILY FLU Vacc [id number] 36Mos UP/PF [Fluzone Quad [id number]] Med 01/02/17 10:00 Once 60 mcg IM .ONCE ONE Magnesium Hydroxide [Milk of Magnesia] Med 01/01/17 23:04 Active 30 ml PO Q12H PRN Ondansetron [Zofran ODT] Med 01/01/17 23:04 Active 4 mg PO Q6H PRN Piperacillin/Tazobactam [Zosyn] 3.375 gm Med 01/02/17 00:00 Active Sodium Chloride 0.9% [Normal Saline] 50 ml IV Q6H Silver Sulfadiazine [Silvadene 1% Cream 400 GM] Med 01/02/17 09:15 Ordered 10 gm TOP BID Sodium Chloride 0.9% [Normal Saline] 250 ml Med 01/01/17 23:45 Active IV ASDIRECTED Vancomycin 1,500 mg Med 01/02/17 01:00 Active Sodium Chloride 0.9% [Normal Saline] 500 ml IV Q24H Resuscitation Status Routine Resus Stat 01/01/17 23:01 Ordered Medication Orders Hydrocodone Bitart/Acetaminophen (Kechi 325-5 Mg) 1 tab PO Q4H PRN PRN Reason: Pain Last Admin: 01/02/17 00:51 Dose: 1 tab Enoxaparin Sodium (Lovenox) 40 mg SUBCUT DAILY [facility] Last Admin: 01/02/17 09:06 Dose: 40 mg Admin: 01/02/17 00:57 Dose: 40 mg Sodium Chloride (Normal Saline) 250 mls @ 0 mls/hr IV ASDIRECTED MIROSLAVA PRN Reason: KVO Last Admin: 01/01/17 23:54 Dose: 30 mls/hr Piperacillin Sod/Tazobactam (Sod 3.375 gm/ Sodium Chloride) 50 mls @ 100 mls/ hr IV Q6H [facility] Last Admin: 01/02/17 05:57 Dose: 100 mls/hr Admin: 01/01/17 23:55 Dose: 100 mls/hr Vancomycin HCl 1,500 mg/ (Sodium Chloride) 500 mls @ 333.333 mls/hr IV Q24H [facility] Last Admin: 01/02/17 01:35 Dose: 333.333 mls/hr Influenza Virus Vaccine (Fluzone Quad [id number]) 60 mcg IM .ONCE ONE Stop: 01/02/17 10:01 Magnesium Hydroxide (Milk Of Magnesia) 30 ml PO Q12H PRN PRN Reason: Constipation Ondansetron HCl (Zofran Odt) 4 mg PO Q6H PRN PRN Reason: nausea, able to take PO Silver Sulfadiazine (Silvadene 1% Cream 400 Gm) 10 gm TOP BID [facility] Sodium Chloride (Saline Flush) 10 ml FLUSH ASDIRECTED PRN PRN Reason: Keep Vein Open Last Admin: 01/02/17 04:11 Dose: 10 ml Assessment/Plan Comment:: CODE STATUS discussed at length with the patient on admission. Patient is a full code. If she got so sick she were to , she would want heroic measures to bring her back to life. However if she was a vegetable she is not sure she would want to be sustained by artificial life support. Encouraged her to develop healthcare advanced directive with her primary care provider after discharge.
[2017-01-02] MEDS: Metoprolol Succinate 25 MG Tab.ER PO SCH (09:40)
[2017-01-02] MEDS: Sulfamethoxazole/Trimethoprim 800-160 MG Tab PO SCH ×2 (09:41→20:50)
[2017-01-02] MEDS: Amoxicillin/Clavulanate K 875-125 MG Tab PO SCH ×2 (09:41→20:50)
[2017-01-02] MEDS ORDERED: FLU Vacc QS 2017-18 (36mos UP)/PF 60 MCG/0.5 ML Syringe IM ONE (10:00)
[2017-01-02] MEDS: Silver Sulfadiazine 1% Crm 400 GM Jar TOP SCH ×2 (11:48→23:01)
[2017-01-02] MEDS ORDERED: Carboxymethylcellulose Sodium 0.5% Ophth Soln 15 ML Bottle EYEBOTH PRN (14:11)
[2017-01-02] MEDS ORDERED: Cetirizine 10 MG Tab PO PRN (14:11)
[2017-01-02] MEDS: Escitalopram 20 MG Tab PO SCH (15:43)
[2017-01-02] MEDS: Aspirin 81 MG Tab.EC PO SCH (15:43)
[2017-01-02] MEDS: Ferrous Sulfate 325 MG Tab PO SCH (15:43)
[2017-01-02] MEDS: Oxybutynin 5 MG Tab PO SCH (20:49)
[2017-01-02] MEDS: buPROPion 150 MG Tab.SR PO SCH (20:50)
[2017-01-03] MEDS: hydrOXYzine HCl 25 MG Tab PO PRN ×2 (01:28→21:17)
[2017-01-03] MEDS: Acetaminophen/HYDROcodone 325-5 MG Tab PO PRN ×2 (03:53→20:09)
[2017-01-03] MEDS: Sodium Chloride 0.9% 10 ML Syringe FLUSH PRN ×2 (08:09→19:43)
[2017-01-03] MEDS: Ferrous Sulfate 325 MG Tab PO SCH (08:11)
[2017-01-03] MEDS: Enoxaparin 40 MG/0.4 ML Syringe SUBCUT SCH (08:11)
[2017-01-03] MEDS: Aspirin 81 MG Tab.EC PO SCH (08:11)
[2017-01-03] MEDS: Escitalopram 20 MG Tab PO SCH (08:11)
[2017-01-03] MEDS: Silver Sulfadiazine 1% Crm 400 GM Jar TOP SCH ×2 (08:12→20:04)
[2017-01-03] MEDS: Oxybutynin 5 MG Tab PO SCH ×2 (08:12→20:05)
[2017-01-03] MEDS: Metoprolol Succinate 25 MG Tab.ER PO SCH (08:12)
[2017-01-03] MEDS: Sulfamethoxazole/Trimethoprim 800-160 MG Tab PO SCH ×2 (08:12→20:05)
[2017-01-03] MEDS: buPROPion 150 MG Tab.SR PO SCH ×2 (08:12→20:05)
[2017-01-03] MEDS: Amoxicillin/Clavulanate K 875-125 MG Tab PO SCH ×2 (08:15→20:21)
--- NOTE | 2017-01-03 18:47 | PCM.PN ---
- General Info Date of Service: 01/03/17 Subjective Update: Patient doing very well today. Pain is better. Legs are significantly improved in their appearance. She's had no chest pain, no shortness of breath, no nausea , no vomiting, no diarrhea. Functional Status: Reports: Pain Controlled, Tolerating Diet, Ambulating, Urinating - Patient Data Vitals - Most Recent: Last Vital Signs Temp 36.6 C 01/03/17 16:40 Pulse 83 01/03/17 16:40 Resp 20 01/03/17 16:40 BP 156/68 H 01/03/17 16:40 Pulse Ox 93 L 01/03/17 16:40 Weight - Most Recent: 108.227 kg I&O - Last 24 Hours: Intake & Output 01/03/17 01/03/17 01/03/17 06:59 14:59 22:59 Intake Total 500 240 Output Total 1000 Balance -500 240 Lab Results Last 24 Hours: Laboratory Results - last 24 hr 01/03/17 01/03/17 Range/Units 06:55 06:55 WBC 6.6 (4.5-12.0) X10-3/uL RBC 3.21 L (3.23-5.20) x10(6)uL Hgb 9.3 L (11.5-15.5) g/dL Hct 27.9 L (30.0-51.3) % MCV 86.9 (80-96) fL MCH 28.8 (27.7-33.6) pg MCHC 33.2 (32.2-35.4) g/dL RDW 14.9 (11.5-15.5) % Plt Count 302 (125-369) X10(3)uL MPV 7.4 (7.4-10.4) fL Neut % (Auto) 57.3 (46-82) % Lymph % (Auto) 21.8 (13-37) % [place] % (Auto) 14.5 H (4-12) % Eos % (Auto) 6 H (1.0-5.0) % Baso % (Auto) 0 (0-2) % Neut # (Auto) 3.8 (1.6-8.3) # Lymph # (Auto) 1.4 (0.6-5.0) # [place] # (Auto) 1.0 (0.0-1.3) # Eos # (Auto) 0.4 (0.0-0.8) # Baso # (Auto) 0.0 (0.0-0.2) # Sodium 140 (135-145) mmol/L Potassium 3.5 (3.5-5.3) mmol/L Chloride 107 D (100-110) mmol/L Carbon Dioxide 27 (23-29) mmol/L BUN 11 D (8-23) mg/dL Creatinine 0.7 (0.6-1.3) mg/dL Est Cr Clr Drug Dosing 52.40 mL/min Estimated GFR (MDRD) > 60 (>60) BUN/Creatinine Ratio 15.7 (9-20) Glucose 136 H (80-116) mg/dL Calcium 7.9 L (8.6-10.2) mg/dL Total Bilirubin 0.3 (0.1-1.3) mg/dL AST 13 D (5-27) IU/L ALT 14 (14-26) IU/L Alkaline Phosphatase 60 (56-112) IU/L Total Protein 5.4 L (6.0-8.0) g/dL Albumin 2.7 L (3.2-4.6) g/dL Globulin 2.7 g/dL Albumin/Globulin Ratio 1.0 Med Orders - Current: Current Medications Hydrocodone Bitart/Acetaminophen ([place] 325-5 Mg) 1 tab PO Q4H PRN PRN Reason: Pain Last Admin: 01/03/17 03:53 Dose: 1 tab Amoxicillin/Clavulanate Potassium (Augmentin 875 Mg/125 Mg) 1 tab PO Q12H [facility] Last Admin: 01/03/17 08:15 Dose: 1 tab Artificial Tears (Refresh Tears 0.5%) 0 ml EYEBOTH ASDIRECTED PRN PRN Reason: Dry Eyes Aspirin (Halfprin) 81 mg PO DAILY [facility] Last Admin: 01/03/17 08:11 Dose: 81 mg Bupropion HCl (Wellbutrin Sr) 150 mg PO BID [facility] Last Admin: 01/03/17 08:12 Dose: 150 mg Cetirizine HCl (Zyrtec) 10 mg PO DAILY PRN PRN Reason: Allergies Enoxaparin Sodium (Lovenox) 40 mg SUBCUT DAILY [facility] Last Admin: 01/03/17 08:11 Dose: 40 mg Escitalopram Oxalate (Lexapro) 20 mg PO DAILY [facility] Last Admin: 01/03/17 08:11 Dose: 20 mg Ferrous Sulfate (Ferrous Sulfate) 325 mg PO DAILY [facility] Last Admin: 01/03/17 08:11 Dose: 325 mg Hydroxyzine HCl (Atarax) 25 mg PO BEDTIME PRN PRN Reason: Insomnia Last Admin: 01/03/17 01:28 Dose: 25 mg Vancomycin HCl 1,500 mg/ (Sodium Chloride) 500 mls @ 333.333 mls/hr IV Q12H [facility] Magnesium Hydroxide (Milk Of Magnesia) 30 ml PO Q12H PRN PRN Reason: Constipation Metoprolol Succinate (Toprol Xl) 25 mg PO DAILY [facility] Last Admin: 01/03/17 08:12 Dose: 25 mg Oxybutynin Chloride (Oxybutynin) 10 mg PO BID [facility] Last Admin: 01/03/17 08:12 Dose: 10 mg Silver Sulfadiazine (Silvadene 1% Cream 400 Gm) 0 gm TOP BID [facility] Last Admin: 01/03/17 08:12 Dose: 1 applic Sodium Chloride (Saline Flush) 10 ml FLUSH ASDIRECTED PRN PRN Reason: Keep Vein Open Last Admin: 01/03/17 08:09 Dose: 10 ml Trimethoprim/Sulfamethoxazole (Septra Ds) 1 tab PO BID [facility] Last Admin: 01/03/17 08:12 Dose: 1 tab Discontinued Medications Hydroxyzine Pamoate (Vistaril) 25 mg PO BEDTIME PRN PRN Reason: Insomnia Piperacillin Sod/Tazobactam (Sod 3.375 gm/ Sodium Chloride) 50 mls @ 100 mls/ hr IV Q6H [facility] Last Admin: 01/03/17 06:37 Dose: Not Given Vancomycin HCl 1,500 mg/ (Sodium Chloride) 250 mls @ 166.667 mls/hr IV Q24H [facility] Last Admin: 01/03/17 06:37 Dose: Not Given Sodium Chloride (Normal Saline) 250 mls @ 0 mls/hr IV ASDIRECTED [facility] PRN Reason: KVO Last Admin: 01/01/17 23:54 Dose: 30 mls/hr Piperacillin Sod/Tazobactam (Sod 3.375 gm/ Sodium Chloride) 50 mls @ 100 mls/ hr IV Q6H [facility] Last Admin: 01/02/17 05:57 Dose: 100 mls/hr Vancomycin HCl 1,500 mg/ (Sodium Chloride) 250 mls @ 166.667 mls/hr IV Q24H [facility] Vancomycin HCl 1,500 mg/ (Sodium Chloride) 500 mls @ 333.333 mls/hr IV Q24H [facility] Vancomycin HCl 1,500 mg/ (Sodium Chloride) 500 mls @ 333.333 mls/hr IV Q24H [facility] Last Admin: 01/02/17 01:35 Dose: 333.333 mls/hr Vancomycin HCl 1,000 mg/ (Sodium Chloride) 250 mls @ 167 mls/hr IV Q12H [facility] Influenza Virus Vaccine (Pharmacy To Dose - Influenza Vaccine) 1 each IM ONETIME ONE Stop: 01/02/17 00:09 Influenza Virus Vaccine (Fluzone Quad [id number]) 60 mcg IM .ONCE ONE Stop: 01/02/17 10:01 Last Admin: 01/02/17 12:59 Dose: 60 mcg Ondansetron HCl (Zofran Odt) 4 mg PO Q6H PRN PRN Reason: nausea, able to take PO Zolpidem Tartrate (Ambien) 10 mg PO ONETIME ONE Stop: 01/02/17 01:21 Last Admin: 01/02/17 02:04 Dose: 10 mg - Exam General: Alert, Oriented, Cooperative HEENT: Pupils Equal, Pupils Reactive Neck: Supple Lungs: Clear to Auscultation, Normal Respiratory Effort Cardiovascular: Regular Rate, Regular Rhythm, No Murmurs GI/Abdominal Exam: Normal Bowel Sounds, Soft, Non-Tender, No Distention Back Exam: Normal Inspection Extremities: Other (Legs are both still edematous and erythematous, about half the size of yesterday. Open sores are healing well bilaterally. On the left, there is no discharge but on the right there is a purulent appearing discharge anteriorly on the [place]. Legs were cleaned, Silvadene applied, and redressed.) - Problem List & Annotations (1) Chronic acquired lymphedema SNOMED Code(s): 10754489 Code(s): I89.0 - LYMPHEDEMA, NOT ELSEWHERE CLASSIFIED Status: Acute Current Visit: No Annotation/Comment:: Much improved. Continue to wrap from toes to knee. (2) Cellulitis SNOMED Code(s): 490309609 Code(s): L03.90 - CELLULITIS, UNSPECIFIED Status: Acute Current Visit: No Annotation/Comment:: I'm concerned about the area on the right martinez that is purulent. I stopped this and sent for fluid culture. We will start vancomycin IV until culture results back. (3) CAD (coronary artery disease) SNOMED Code(s): 40195168 Code(s): I25.10 - ATHSCL HEART DISEASE OF [place] CORONARY ARTERY W/O ANG PCTRS Status: Acute Current Visit: Yes Annotation/Comment:: Continue outpatient meds. Patient denies hx of HTN and hyperlipidemia. (4) Urge incontinence of urine SNOMED Code(s): 30701275 Code(s): N39.41 - URGE INCONTINENCE Status: Acute Current Visit: Yes Annotation/Comment:: Continue oxybutynin. (5) DVT prophylaxis SNOMED Code(s): 333724991 Code(s): KKY6090 - Status: Acute Current Visit: Yes Annotation/Comment :: Lovenox. - Problem List Review Problem List Initiated/Reviewed/Updated: Yes - My Orders Last 24 Hours: My Active Orders 01/02/17 21:00 Oxybutynin 10 mg PO BID buPROPion [Wellbutrin SR] 150 mg PO BID 01/03/17 18:02 CULTURE BODY FLUID + SMEAR [RM] Routine 01/03/17 19:00 Vancomycin 1,500 mg Sodium Chloride 0.9% [Normal Saline] 500 ml IV Q12H - Plan Plan:: CODE STATUS discussed at length with the patient on admission. Patient is a full code. If she got so sick she were to , she would want heroic measures to bring her back to life. However if she was a vegetable she is not sure she would want to be sustained by artificial life support. Encouraged her to develop healthcare advanced directive with her primary care provider after discharge.
[2017-01-04] MEDS: Acetaminophen/HYDROcodone 325-5 MG Tab PO PRN ×2 (04:28→12:19)
[2017-01-04] MEDS: Metoprolol Succinate 25 MG Tab.ER PO SCH (09:12)
[2017-01-04] MEDS: Enoxaparin 40 MG/0.4 ML Syringe SUBCUT SCH (09:12)
[2017-01-04] MEDS: Amoxicillin/Clavulanate K 875-125 MG Tab PO SCH ×2 (09:12→20:22)
[2017-01-04] MEDS: buPROPion 150 MG Tab.SR PO SCH ×2 (09:13→20:22)
[2017-01-04] MEDS: Ferrous Sulfate 325 MG Tab PO SCH (09:13)
[2017-01-04] MEDS: Aspirin 81 MG Tab.EC PO SCH (09:15)
[2017-01-04] MEDS: Oxybutynin 5 MG Tab PO SCH ×2 (09:15→20:21)
[2017-01-04] MEDS: Escitalopram 20 MG Tab PO SCH (09:15)
[2017-01-04] MEDS: Sulfamethoxazole/Trimethoprim 800-160 MG Tab PO SCH ×2 (09:16→20:22)
[2017-01-04] MEDS: Silver Sulfadiazine 1% Crm 400 GM Jar TOP SCH ×2 (09:16→20:22)
[2017-01-04] MEDS: Saccharomyces Boulardii (Probiotic) 250 MG Cap PO SCH ×2 (10:30→20:21)
[2017-01-04] MEDS: Sodium Chloride 0.9% 250 ML IV SCH (10:45)
--- NOTE | 2017-01-04 12:10 | PCM.PN ---
- General Info Date of Service: 01/04/17 Subjective Update: 76-year-old female currently on hospital day #3 for cellulitis of the lower extremities and severe lymphedema. Patient to shower this morning before I saw her and her legs are nice and clean. They look much better than they have. Continue to heal well. Redness is improved. Good granulation tissue. Swelling is much improved from pressure wraps. Patient denies chest pain, shortness of breath, nausea, vomiting, diarrhea. Pain is much improved. Hopefully son will come in today and will have an opportunity to visit about home care and the importance of good compression for lymphedema. Functional Status: Reports: Pain Controlled, Tolerating Diet, Ambulating, Urinating - Patient Data Vitals - Most Recent: Last Vital Signs Temp 37.2 C 01/04/17 08:00 Pulse 79 01/04/17 09:12 Resp 20 01/04/17 08:00 BP 113/53 L 01/04/17 09:12 Pulse Ox 90 L 01/04/17 08:00 Weight - Most Recent: 106.05 kg I&O - Last 24 Hours: Intake & Output 01/03/17 01/04/17 01/04/17 22:59 06:59 14:59 Intake Total 1190 100 Output Total 700 Balance 490 100 Lab Results Last 24 Hours: Laboratory Results - last 24 hr 01/04/17 01/04/17 Range/Units 06:25 06:25 WBC 10.5 (4.5-12.0) X10-3/uL RBC 3.52 (3.23-5.20) x10(6)uL Hgb 10.4 L (11.5-15.5) g/dL Hct 31.1 (30.0-51.3) % MCV 88.2 (80-96) fL MCH 29.4 (27.7-33.6) pg MCHC 33.3 (32.2-35.4) g/dL RDW 14.6 (11.5-15.5) % Plt Count 334 (125-369) X10(3)uL MPV 7.7 (7.4-10.4) fL Neut % (Auto) 70.0 (46-82) % Lymph % (Auto) 13.4 (13-37) % [place] % (Auto) 11.6 (4-12) % Eos % (Auto) 5 (1.0-5.0) % Baso % (Auto) 1 (0-2) % Neut # (Auto) 7.3 (1.6-8.3) # Lymph # (Auto) 1.4 (0.6-5.0) # [place] # (Auto) 1.2 (0.0-1.3) # Eos # (Auto) 0.5 (0.0-0.8) # Baso # (Auto) 0.1 (0.0-0.2) # Sodium 140 (135-145) mmol/L Potassium 4.0 (3.5-5.3) mmol/L Chloride 104 (100-110) mmol/L Carbon Dioxide 27 (23-29) mmol/L BUN 9 (8-23) mg/dL Creatinine 0.8 (0.6-1.3) mg/dL Est Cr Clr Drug Dosing 45.85 mL/min Estimated GFR (MDRD) > 60 (>60) BUN/Creatinine Ratio 11.3 (9-20) Glucose 113 (80-116) mg/dL Calcium 8.4 L (8.6-10.2) mg/dL C-Reactive Protein 6.1 H* (0.0-1.0) mg/dL Timo Results Last 24 Hours: Microbiology 01/03/17 17:40 Gram Stain - Final Serous Fluid Med Orders - Current: Current Medications Hydrocodone Bitart/Acetaminophen ([place] 325-5 Mg) 1 tab PO Q4H PRN PRN Reason: Pain Last Admin: 01/04/17 04:28 Dose: 1 tab Amoxicillin/Clavulanate Potassium (Augmentin 875 Mg/125 Mg) 1 tab PO Q12H [facility] Last Admin: 01/04/17 09:12 Dose: 1 tab Artificial Tears (Refresh Tears 0.5%) 0 ml EYEBOTH ASDIRECTED PRN PRN Reason: Dry Eyes Aspirin (Halfprin) 81 mg PO DAILY [facility] Last Admin: 01/04/17 09:15 Dose: 81 mg Bupropion HCl (Wellbutrin Sr) 150 mg PO BID [facility] Last Admin: 01/04/17 09:13 Dose: 150 mg Cetirizine HCl (Zyrtec) 10 mg PO DAILY PRN PRN Reason: Allergies Enoxaparin Sodium (Lovenox) 40 mg SUBCUT DAILY [facility] Last Admin: 01/04/17 09:12 Dose: 40 mg Escitalopram Oxalate (Lexapro) 20 mg PO DAILY [facility] Last Admin: 01/04/17 09:15 Dose: 20 mg Ferrous Sulfate (Ferrous Sulfate) 325 mg PO DAILY [facility] Last Admin: 01/04/17 09:13 Dose: 325 mg Hydroxyzine HCl (Atarax) 25 mg PO BEDTIME PRN PRN Reason: Insomnia Last Admin: 01/03/17 21:17 Dose: 25 mg Vancomycin HCl 1,000 mg/Vancomycin HCl 500 mg/ Sodium Chloride 500 mls @ 250 mls/hr IV Q12H [facility] Last Admin: 01/04/17 08:47 Dose: 250 mls/hr Sodium Chloride (Normal Saline) 250 mls @ 30 mls/hr IV ASDIRECTED [facility] Magnesium Hydroxide (Milk Of Magnesia) 30 ml PO Q12H PRN PRN Reason: Constipation Metoprolol Succinate (Toprol Xl) 25 mg PO DAILY [facility] Last Admin: 01/04/17 09:12 Dose: 25 mg Oxybutynin Chloride (Oxybutynin) 10 mg PO BID [facility] Last Admin: 01/04/17 09:15 Dose: 10 mg Saccharomyces Boulardii (Florastor) 250 mg PO BID [facility] Last Admin: 01/04/17 10:30 Dose: 250 mg Silver Sulfadiazine (Silvadene 1% Cream 400 Gm) 0 gm TOP BID [facility] Last Admin: 01/04/17 09:16 Dose: 1 applic Sodium Chloride (Saline Flush) 10 ml FLUSH ASDIRECTED PRN PRN Reason: Keep Vein Open Last Admin: 01/03/17 19:43 Dose: 10 ml Trimethoprim/Sulfamethoxazole (Septra Ds) 1 tab PO BID [facility] Last Admin: 01/04/17 09:16 Dose: 1 tab Discontinued Medications Hydroxyzine Pamoate (Vistaril) 25 mg PO BEDTIME PRN PRN Reason: Insomnia Piperacillin Sod/Tazobactam (Sod 3.375 gm/ Sodium Chloride) 50 mls @ 100 mls/ hr IV Q6H [facility] Last Admin: 01/03/17 06:37 Dose: Not Given Vancomycin HCl 1,500 mg/ (Sodium Chloride) 250 mls @ 166.667 mls/hr IV Q24H [facility] Last Admin: 01/03/17 06:37 Dose: Not Given Sodium Chloride (Normal Saline) 250 mls @ 0 mls/hr IV ASDIRECTED [facility] PRN Reason: KVO Last Admin: 01/01/17 23:54 Dose: 30 mls/hr Piperacillin Sod/Tazobactam (Sod 3.375 gm/ Sodium Chloride) 50 mls @ 100 mls/ hr IV Q6H [facility] Last Admin: 01/02/17 05:57 Dose: 100 mls/hr Vancomycin HCl 1,500 mg/ (Sodium Chloride) 250 mls @ 166.667 mls/hr IV Q24H [facility] Vancomycin HCl 1,500 mg/ (Sodium Chloride) 500 mls @ 333.333 mls/hr IV Q24H [facility] Vancomycin HCl 1,500 mg/ (Sodium Chloride) 500 mls @ 333.333 mls/hr IV Q24H [facility] Last Admin: 01/02/17 01:35 Dose: 333.333 mls/hr Vancomycin HCl 1,500 mg/ (Sodium Chloride) 500 mls @ 333.333 mls/hr IV Q12H [facility] Stop: 01/03/17 23:59 Last Admin: 01/03/17 19:12 Dose: 333.333 mls/hr Vancomycin HCl 1,000 mg/ (Sodium Chloride) 250 mls @ 167 mls/hr IV Q12H [facility] Influenza Virus Vaccine (Pharmacy To Dose - Influenza Vaccine) 1 each IM ONETIME ONE Stop: 01/02/17 00:09 Influenza Virus Vaccine (Fluzone Quad [id number]) 60 mcg IM .ONCE ONE Stop: 01/02/17 10:01 Last Admin: 01/02/17 12:59 Dose: 60 mcg Ondansetron HCl (Zofran Odt) 4 mg PO Q6H PRN PRN Reason: nausea, able to take PO Zolpidem Tartrate (Ambien) 10 mg PO ONETIME ONE Stop: 01/02/17 01:21 Last Admin: 01/02/17 02:04 Dose: 10 mg - Exam General: Alert, Oriented, Cooperative, No Acute Distress HEENT: Pupils Equal, Pupils Reactive Neck: Supple Lungs: Clear to Auscultation, Normal Respiratory Effort Cardiovascular: Regular Rate, Regular Rhythm, No Murmurs GI/Abdominal Exam: Normal Bowel Sounds, Soft, Non-Tender, No Distention Extremities: Other (Redness improved. Open wound starting to granulate in. No purulence. Swelling still very much better than admission.) Skin: Warm, Dry, Intact Wound/Incisions: Healing Well Psy/Mental Status: Alert, Normal Affect, Normal Mood - Problem List & Annotations (1) Chronic acquired lymphedema SNOMED Code(s): 46690786 Code(s): I89.0 - LYMPHEDEMA, NOT ELSEWHERE CLASSIFIED Status: Acute Current Visit: No Annotation/Comment:: Much improved. Continue to wrap from toes to knee. (2) Cellulitis SNOMED Code(s): 291570975 Code(s): L03.90 - CELLULITIS, UNSPECIFIED Status: Acute Current Visit: No Annotation/Comment:: Wound culture since the evening of 01 03. IV vancomycin until results back. On by mouth Bactrim and Augmentin since 01/02. (3) CAD (coronary artery disease) SNOMED Code(s): 05523509 Code(s): I25.10 - ATHSCL HEART DISEASE OF [place] CORONARY ARTERY W/O ANG PCTRS Status: Acute Current Visit: Yes Annotation/Comment:: Continue outpatient meds. Patient denies hx of HTN and hyperlipidemia. (4) Urge incontinence of urine SNOMED Code(s): 48371610 Code(s): N39.41 - URGE INCONTINENCE Status: Acute Current Visit: Yes Annotation/Comment:: Continue oxybutynin. (5) DVT prophylaxis SNOMED Code(s): 134609970 Code(s): WWX8081 - Status: Acute Current Visit: Yes Annotation/Comment :: Lovenox. - Problem List Review Problem List Initiated/Reviewed/Updated: Yes - My Orders Last 24 Hours: My Active Orders 01/03/17 17:40 CULTURE BODY FLUID + SMEAR [RM] Routine 01/04/17 08:00 Vancomycin 1,000 mg Vancomycin 500 mg Sodium Chloride 0.9% [Normal Saline] 500 ml IV Q12H 01/04/17 09:00 Sodium Chloride 0.9% [Normal Saline] 250 ml IV ASDIRECTED 01/04/17 10:00 Saccharomyces Boulardii [Florastor] 250 mg PO BID 01/05/17 07:30 VANCOMYCIN TROUGH [CHEM] Timed - Plan Plan:: CODE STATUS discussed at length with the patient on admission. Patient is a full code. If she got so sick she were to , she would want heroic measures to bring her back to life. However if she was a vegetable she is not sure she would want to be sustained by artificial life support. Encouraged her to develop healthcare advanced directive with her primary care provider after discharge.
[2017-01-04] MEDS: Sodium Chloride 0.9% 10 ML Syringe FLUSH PRN (23:34)
[2017-01-05] MEDS: Acetaminophen/HYDROcodone 325-5 MG Tab PO PRN ×4 (01:24→20:42)
[2017-01-05] MEDS: Oxybutynin 5 MG Tab PO SCH ×2 (07:54→20:37)
[2017-01-05] MEDS: Aspirin 81 MG Tab.EC PO SCH (09:15)
[2017-01-05] MEDS: Escitalopram 20 MG Tab PO SCH (09:15)
[2017-01-05] MEDS: Enoxaparin 40 MG/0.4 ML Syringe SUBCUT SCH (09:15)
[2017-01-05] MEDS: Saccharomyces Boulardii (Probiotic) 250 MG Cap PO SCH ×2 (09:15→20:35)
[2017-01-05] MEDS: Amoxicillin/Clavulanate K 875-125 MG Tab PO SCH ×2 (09:15→20:38)
[2017-01-05] MEDS: buPROPion 150 MG Tab.SR PO SCH ×2 (09:15→20:39)
[2017-01-05] MEDS: Metoprolol Succinate 25 MG Tab.ER PO SCH (09:15)
[2017-01-05] MEDS: Ferrous Sulfate 325 MG Tab PO SCH (09:16)
[2017-01-05] MEDS: Sulfamethoxazole/Trimethoprim 800-160 MG Tab PO SCH ×2 (09:16→20:37)
[2017-01-05] MEDS: Silver Sulfadiazine 1% Crm 400 GM Jar TOP SCH (09:16)
--- NOTE | 2017-01-05 16:39 | PCM.SN ---
- Free Text/Narrative Note: full consult dictated and dressing orders written.
--- NOTE | 2017-01-05 16:54 | PCM.PN ---
- General Info Date of Service: 01/05/17 (0900) Subjective Update: venous stasis ulcerations with cellulitis. Functional Status: Reports: Pain Controlled, Tolerating Diet, Ambulating, Urinating - Review of Systems General: Denies: Fever Pulmonary: Denies: Shortness of Breath Cardiovascular: Denies: Chest Pain Musculoskeletal: Denies: Leg Pain Skin: Reports: Pruritis Neurological: Denies: Confusion Psychiatric: Reports: Anxiety - Patient Data Vitals - Most Recent: Last Vital Signs Temp 97.8 F 01/05/17 16:00 Pulse 73 01/05/17 16:00 Resp 16 01/05/17 16:00 BP 136/68 01/05/17 16:00 Pulse Ox 91 L 01/05/17 16:00 Weight - Most Recent: 104.78 kg I&O - Last 24 Hours: Intake & Output 01/05/17 01/05/17 01/05/17 06:59 14:59 22:59 Output Total 400 600 Balance -400 -600 Lab Results Last 24 Hours: Laboratory Results - last 24 hr 01/05/17 01/05/17 01/05/17 Range/Units 07:35 07:35 07:35 WBC 7.2 (4.5-12.0) X10-3/uL RBC 3.47 (3.23-5.20) x10(6)uL Hgb 10.3 L (11.5-15.5) g/dL Hct 30.3 (30.0-51.3) % MCV 87.5 (80-96) fL MCH 29.7 (27.7-33.6) pg MCHC 33.9 (32.2-35.4) g/dL RDW 15.3 (11.5-15.5) % Plt Count 358 (125-369) X10(3)uL MPV 7.5 (7.4-10.4) fL Neut % (Auto) 57.5 (46-82) % Lymph % (Auto) 21.5 (13-37) % [place] % (Auto) 14.1 H (4-12) % Eos % (Auto) 6 H (1.0-5.0) % Baso % (Auto) 1 (0-2) % Neut # (Auto) 4.2 (1.6-8.3) # Lymph # (Auto) 1.5 (0.6-5.0) # [place] # (Auto) 1.0 (0.0-1.3) # Eos # (Auto) 0.5 (0.0-0.8) # Baso # (Auto) 0.0 (0.0-0.2) # Sodium 141 (135-145) mmol/L Potassium 3.9 (3.5-5.3) mmol/L Chloride 107 (100-110) mmol/L Carbon Dioxide 27 (23-29) mmol/L BUN 10 (8-23) mg/dL Creatinine 0.7 (0.6-1.3) mg/dL Est Cr Clr Drug Dosing 52.40 mL/min Estimated GFR (MDRD) > 60 (>60) BUN/Creatinine Ratio 14.3 (9-20) Glucose 112 (80-116) mg/dL Calcium 8.6 (8.6-10.2) mg/dL Vancomycin Trough 17.8 H (10-15) ug/mL Timo Results Last 24 Hours: Microbiology 01/03/17 17:40 Gram Stain - Final Serous Fluid Body Fluid Culture - Preliminary Gram Positive Cocci Med Orders - Current: Current Medications Hydrocodone Bitart/Acetaminophen ([place] 325-5 Mg) 1 tab PO Q4H PRN PRN Reason: Pain Last Admin: 01/05/17 16:32 Dose: 1 tab Amoxicillin/Clavulanate Potassium (Augmentin 875 Mg/125 Mg) 1 tab PO Q12H [facility] Last Admin: 01/05/17 09:15 Dose: 1 tab Artificial Tears (Refresh Tears 0.5%) 0 ml EYEBOTH ASDIRECTED PRN PRN Reason: Dry Eyes Aspirin (Halfprin) 81 mg PO DAILY [facility] Last Admin: 01/05/17 09:15 Dose: 81 mg Bupropion HCl (Wellbutrin Sr) 150 mg PO BID [facility] Last Admin: 01/05/17 09:15 Dose: 150 mg Cetirizine HCl (Zyrtec) 10 mg PO DAILY PRN PRN Reason: Allergies Enoxaparin Sodium (Lovenox) 40 mg SUBCUT DAILY [facility] Last Admin: 01/05/17 09:15 Dose: 40 mg Escitalopram Oxalate (Lexapro) 20 mg PO DAILY [facility] Last Admin: 01/05/17 09:15 Dose: 20 mg Ferrous Sulfate (Ferrous Sulfate) 325 mg PO DAILY [facility] Last Admin: 01/05/17 09:16 Dose: 325 mg Hydroxyzine HCl (Atarax) 25 mg PO BEDTIME PRN PRN Reason: Insomnia Last Admin: 01/03/17 21:17 Dose: 25 mg Sodium Chloride (Normal Saline) 250 mls @ 30 mls/hr IV ASDIRECTED [facility] Last Admin: 01/04/17 10:45 Dose: 30 mls/hr Vancomycin HCl 1 gm/ Sodium (Chloride) 250 mls @ 167 mls/hr IV Q12H [facility] Last Admin: 01/05/17 09:03 Dose: 167 mls/hr Magnesium Hydroxide (Milk Of Magnesia) 30 ml PO Q12H PRN PRN Reason: Constipation Metoprolol Succinate (Toprol Xl) 25 mg PO DAILY [facility] Last Admin: 01/05/17 09:15 Dose: 25 mg Oxybutynin Chloride (Oxybutynin) 10 mg PO BID@0800,2100 [facility] Last Admin: 01/05/17 07:54 Dose: 10 mg Saccharomyces Boulardii (Florastor) 250 mg PO BID [facility] Last Admin: 01/05/17 09:15 Dose: 250 mg Sodium Chloride (Saline Flush) 10 ml FLUSH ASDIRECTED PRN PRN Reason: Keep Vein Open Last Admin: 01/04/17 23:34 Dose: 10 ml Trimethoprim/Sulfamethoxazole (Septra Ds) 1 tab PO BID [facility] Last Admin: 01/05/17 09:16 Dose: 1 tab Vancomycin HCl (Pharmacy To Dose - Vancomycin) 1 dose .XX ASDIRECTED [facility] Discontinued Medications Hydroxyzine Pamoate (Vistaril) 25 mg PO BEDTIME PRN PRN Reason: Insomnia Piperacillin Sod/Tazobactam (Sod 3.375 gm/ Sodium Chloride) 50 mls @ 100 mls/ hr IV Q6H [facility] Last Admin: 01/03/17 06:37 Dose: Not Given Vancomycin HCl 1,500 mg/ (Sodium Chloride) 250 mls @ 166.667 mls/hr IV Q24H [facility] Last Admin: 01/03/17 06:37 Dose: Not Given Sodium Chloride (Normal Saline) 250 mls @ 0 mls/hr IV ASDIRECTED [facility] PRN Reason: KVO Last Admin: 01/01/17 23:54 Dose: 30 mls/hr Piperacillin Sod/Tazobactam (Sod 3.375 gm/ Sodium Chloride) 50 mls @ 100 mls/ hr IV Q6H [facility] Last Admin: 01/02/17 05:57 Dose: 100 mls/hr Vancomycin HCl 1,500 mg/ (Sodium Chloride) 250 mls @ 166.667 mls/hr IV Q24H [facility] Vancomycin HCl 1,500 mg/ (Sodium Chloride) 500 mls @ 333.333 mls/hr IV Q24H [facility] Vancomycin HCl 1,500 mg/ (Sodium Chloride) 500 mls @ 333.333 mls/hr IV Q24H [facility] Last Admin: 01/02/17 01:35 Dose: 333.333 mls/hr Vancomycin HCl 1,500 mg/ (Sodium Chloride) 500 mls @ 333.333 mls/hr IV Q12H [facility] Stop: 01/03/17 23:59 Last Admin: 01/03/17 19:12 Dose: 333.333 mls/hr Vancomycin HCl 1,000 mg/ (Sodium Chloride) 250 mls @ 167 mls/hr IV Q12H [facility] Vancomycin HCl 1,000 mg/Vancomycin HCl 500 mg/ Sodium Chloride 500 mls @ 250 mls/hr IV Q12H [facility] Last Admin: 01/04/17 20:21 Dose: 250 mls/hr Influenza Virus Vaccine (Pharmacy To Dose - Influenza Vaccine) 1 each IM ONETIME ONE Stop: 01/02/17 00:09 Influenza Virus Vaccine (Fluzone Quad [id number]) 60 mcg IM .ONCE ONE Stop: 01/02/17 10:01 Last Admin: 01/02/17 12:59 Dose: 60 mcg Ondansetron HCl (Zofran Odt) 4 mg PO Q6H PRN PRN Reason: nausea, able to take PO Oxybutynin Chloride (Oxybutynin) 10 mg PO BID [facility] Last Admin: 01/04/17 20:21 Dose: 10 mg Silver Sulfadiazine (Silvadene 1% Cream 400 Gm) 0 gm TOP BID [facility] Last Admin: 01/05/17 09:16 Dose: 1 applic Zolpidem Tartrate (Ambien) 10 mg PO ONETIME ONE Stop: 01/02/17 01:21 Last Admin: 01/02/17 02:04 Dose: 10 mg - Exam General: Alert, Oriented, Cooperative HEENT: Mucous Membr. Moist/[place] Neck: Supple Lungs: Decreased Breath Sounds. No: Wheezing Cardiovascular: Regular Rate, Regular Rhythm GI/Abdominal Exam: Normal Bowel Sounds, Non-Tender Extremities: Increased Warmth, Redness, Other (acute on chronic lymphedema with several vertical linear and circular weeping ulcerations bilateral anterior and posterior BTK and above the Ankles. Pics taken. Culture taken superficially of small absess draining from the anterior left leg. area of erythema edge has been marked as well as separate marking outling leading edge of induration for daily assesssment. tolerating acewraps. ) Peripheral Pulses: 1+: Posterior Tibial (L), Posterior Tibial (R), Dorsalis Pedis (L), Dorsalis Pedis (R) Skin: Warm, Rash (left forearm, intermittent and chronic dry skin dermatitis.) Wound/Incisions: Dressing Dry and Intact, Erythema Neurological: Sensation Intact Psy/Mental Status: Anxious - Problem List & Annotations (1) Cellulitis of leg without foot, right SNOMED Code(s): 524670745 Code(s): L03.115 - CELLULITIS OF RIGHT LOWER LIMB Status: Acute Priority : High Annotation/Comment:: (2) Cellulitis of leg without foot, left SNOMED Code(s): 066541538 Code(s): L03.116 - CELLULITIS OF LEFT LOWER LIMB Status: Acute Priority: High (3) Cellulitis and abscess of left leg SNOMED Code(s): 600437118 Code(s): L03.116 - CELLULITIS OF LEFT LOWER LIMB; L02.416 - CUTANEOUS ABSCESS OF LEFT LOWER LIMB Status: Acute (4) Chronic acquired lymphedema SNOMED Code(s): 33011566 Code(s): I89.0 - LYMPHEDEMA, NOT ELSEWHERE CLASSIFIED Status: Deleted Annotation/Comment:: Continue to wrap from toes to knee. (5) CAD (coronary artery disease) SNOMED Code(s): 07254581 Code(s): I25.10 - ATHSCL HEART DISEASE OF [place] CORONARY ARTERY W/O ANG PCTRS Status: Chronic Qualifiers: Coronary Disease-Associated Artery/Lesion type: [place] artery Associated angina: without angina Annotation/Comment:: Continue outpatient meds. (6) DVT prophylaxis SNOMED Code(s): 058516144 Code(s): GKC2445 - Status: Acute (7) Urge incontinence of urine SNOMED Code(s): 54794092 Code(s): N39.41 - URGE INCONTINENCE Status: Chronic Annotation/Comment:: Continue oxybutynin. (8) Depression SNOMED Code(s): 33099523 Code(s): F32.9 - MAJOR DEPRESSIVE DISORDER, SINGLE EPISODE, UNSPECIFIED Status: Chronic Qualifiers: Depression Type: major depressive disorder Active/Remission status: currently active Psychotic features: without psychotic features (9) Insomnia SNOMED Code(s): 606961085 Code(s): G47.00 - INSOMNIA, UNSPECIFIED Status: Chronic (10) Iron deficiency anemia SNOMED Code(s): 12287818 Code(s): D50.9 - IRON DEFICIENCY ANEMIA, UNSPECIFIED Status: Chronic (11) Obesity SNOMED Code(s): 998279806 Code(s): E66.9 - OBESITY, UNSPECIFIED Status: Chronic - Problem List Review Problem List Initiated/Reviewed/Updated: Yes - My Orders Last 24 Hours: My Active Orders 01/05/17 16:48 Consult to Physician [CONS] Routine 01/06/17 20:30 VANCOMYCIN TROUGH [CHEM] Timed - Assessment Assessment:: please see above - Plan Plan:: Comorbidities addressed and medications indications doses and durations discussed with pt. will get a wound care consultation from Dr. Mackenzie MD. Culture report pending and will remain on vanco/bactrim. discontinue and adjust pending report and serial assessments. Continue current cares. Anticipate discharge 3-4 days with home health and outpt wound care/lymphedema follow up.
--- NOTE | 2017-01-05 18:06 | CONS ---
DATE OF CONSULTATION: 01/05/2017 REASON FOR CONSULTATION: Bilateral lymphedema with open ulcerations and cellulitis. HISTORY OF PRESENT ILLNESS: This 76-year-old white female who has had a history of chronic lymphedema in her bilateral lower extremities for many years since the 70s. I had actually seen her in the past. She apparently was admitted several days ago with cellulitis and breakdown of the skin. I was asked to provide wound care recommendations for her leg. She is currently receiving IV antibiotics. Wound cultures have grown up gram-positive cocci. Final cultures and sensitivities are pending. Her wound is currently being treated with Silvadene b.i.d. with Telfa and an [place] wrap. She usually keeps her legs wrapped constantly. These recent breakdowns happened over the past couple weeks. She normally keeps her legs up and does not walk much because of the swelling that develops. PAST MEDICAL HISTORY: Significant for cataracts, hypertension, myocardial infarction, lymphedema, gastroesophageal reflux disease, obesity, urinary incontinence, recurrent UTIs, osteoarthritis, peripheral neuropathy, lymphedema, depression, anemia, history of skin cancer, as well as chronic cellulitis and psoriasis. PAST SURGICAL HISTORY: Significant for tonsillectomy and cataract surgery. She has had bilateral vein strippings, appendectomy, hysterectomy, and bilateral knee replacements. FAMILY HISTORY: Essentially noncontributory. REVIEW OF SYSTEMS: Essentially negative with the exception of urgency and incontinence as well as lymphedema. PHYSICAL EXAMINATION: GENERAL: This is a well-developed, obese female, appearing in no acute distress. She is currently lying in bed. EXTREMITIES: Legs were unwrapped, revealing 2+ pitting edema, which appears to be chronic. There was some erythema and evidence of cellulitis surrounding the legs. On the right lower extremity. There are linear ulcerations circumferentially with very thin skin. The right leg just had some mild ulcerations on the lateral aspect of her leg, basically involving the entire length of the [place]. The Silvadene and the Telfa which were applied backwards were removed. The wounds were then covered with Aquacel Ag and then covered with ABDs followed by two Kerlix and an [place] wrap for compression. PLAN: Plan is currently to allow the Aquacel to adhere. We will treat this as a 2nd degree burn and as the skin hopefully replaces underneath this, we will be able to trim away the excess Aquacel. This will allow us to avoid the b.i.d. Silvadene dressings. We will write an order for the outer dressings to be changed on a daily basis, and we will reassess in a few days. /[id number] /MODL
[2017-01-05] MEDS: Sodium Chloride 0.9% 10 ML Syringe FLUSH PRN ×2 (18:18→20:42)
[2017-01-05] MEDS: Sodium Chloride 0.9% 250 ML IV SCH (20:58)
[2017-01-06] MEDS: hydrOXYzine HCl 25 MG Tab PO PRN ×2 (02:17→22:03)
[2017-01-06] MEDS: Acetaminophen/HYDROcodone 325-5 MG Tab PO PRN ×3 (02:18→19:25)
[2017-01-06] MEDS: Aspirin 81 MG Tab.EC PO SCH (08:33)
[2017-01-06] MEDS: Saccharomyces Boulardii (Probiotic) 250 MG Cap PO SCH ×2 (08:33→21:53)
[2017-01-06] MEDS: Ferrous Sulfate 325 MG Tab PO SCH (08:33)
[2017-01-06] MEDS: Oxybutynin 5 MG Tab PO SCH ×2 (08:33→21:53)
[2017-01-06] MEDS: Escitalopram 20 MG Tab PO SCH (08:34)
[2017-01-06] MEDS: Enoxaparin 40 MG/0.4 ML Syringe SUBCUT SCH (08:34)
[2017-01-06] MEDS: Amoxicillin/Clavulanate K 875-125 MG Tab PO SCH (08:34)
[2017-01-06] MEDS: Sulfamethoxazole/Trimethoprim 800-160 MG Tab PO SCH ×2 (08:35→21:53)
--- NOTE | 2017-01-06 08:40 | PCM.SN ---
- Free Text/Narrative Note: dressing are dry today. would not change out dressing. will do dressing change tomorrow evening.
[2017-01-06] MEDS: Sodium Chloride 0.9% 10 ML Syringe FLUSH PRN (08:45)
[2017-01-06] MEDS: Sodium Chloride 0.9% 250 ML IV SCH (08:47)
[2017-01-06] MEDS: buPROPion 150 MG Tab.SR PO SCH ×2 (09:59→21:54)
[2017-01-06] MEDS: Metoprolol Succinate 25 MG Tab.ER PO SCH (10:00)
--- NOTE | 2017-01-06 11:06 | PCM.PN ---
- General Info Date of Service: 01/06/17 Functional Status: Reports: Pain Controlled, Tolerating Diet, Ambulating, Urinating, Incentive Spirometry - Review of Systems Systems Review Comment:: General: Denies: Fever Pulmonary: Denies: Shortness of Breath Cardiovascular: Denies: Chest Pain Musculoskeletal: Denies: Leg Pain Skin: Reports: Pruritis to arm improving. tries not to scratch Neurological: Denies: Confusion Psychiatric: Reports: Anxiety keeps her up at night still a bit. - Patient Data Vitals - Most Recent: Last Vital Signs Temp 98.2 F 01/06/17 08:23 Pulse 74 01/06/17 10:00 Resp 18 01/06/17 08:23 BP 121/50 L 01/06/17 10:00 Pulse Ox 92 L 01/06/17 08:23 Weight - Most Recent: 106.776 kg I&O - Last 24 Hours: Intake & Output 01/05/17 01/06/17 01/06/17 22:59 06:59 14:59 Intake Total 290 280 Output Total 800 500 Balance -510 -500 280 Lab Results Last 24 Hours: Laboratory Tests 01/01/17 01/01/17 01/01/17 Range/Units 22:40 22:40 22:40 WBC 9.3 (4.5-12.0) X10-3/uL RBC 3.86 (3.23-5.20) x10(6)uL Hgb 11.0 L (11.5-15.5) g/dL Hct 33.6 (30.0-51.3) % MCV 87.0 (80-96) fL MCH 28.4 (27.7-33.6) pg MCHC 32.6 (32.2-35.4) g/dL RDW 14.9 (11.5-15.5) % Plt Count 379 H (125-369) X10(3)uL MPV (7.4-10.4) fL Neut % (Auto) (46-82) % Lymph % (Auto) (13-37) % [place] % (Auto) (4-12) % Eos % (Auto) (1.0-5.0) % Baso % (Auto) (0-2) % Neut # (Auto) (1.6-8.3) # Lymph # (Auto) (0.6-5.0) # [place] # (Auto) (0.0-1.3) # Eos # (Auto) (0.0-0.8) # Baso # (Auto) (0.0-0.2) # Sodium 139 (135-145) mmol/L Potassium 4.0 (3.5-5.3) mmol/L Chloride 101 D (100-110) mmol/L Carbon Dioxide 26 (23-29) mmol/L BUN 21 (8-23) mg/dL Creatinine 0.8 (0.6-1.3) mg/dL Est Cr Clr Drug Dosing 45.85 mL/min Estimated GFR (MDRD) > 60 (>60) BUN/Creatinine Ratio 26.3 H (9-20) Glucose 91 (80-116) mg/dL Calcium 8.5 L (8.6-10.2) mg/dL Total Bilirubin (0.1-1.3) mg/dL AST (5-27) IU/L ALT (14-26) IU/L Alkaline Phosphatase (56-112) IU/L C-Reactive Protein 7.8 H* (0.0-1.0) mg/dL Total Protein (6.0-8.0) g/dL Albumin (3.2-4.6) g/dL Globulin g/dL Albumin/Globulin Ratio Urine Color (YELLOW) Urine Appearance (CLEAR) Urine pH (5.0-6.5) Ur Specific [place] (1.010-1.025) Urine Protein (NEGATIVE) mg/dL Urine Glucose (UA) (NEGATIVE) mg/dL Urine Ketones (NEGATIVE) mg/dL Urine Occult Blood (NEGATIVE) Urine Nitrite (NEGATIVE) Urine Bilirubin (NEGATIVE) Urine Urobilinogen (NEGATIVE) mg/dL Ur Leukocyte Esterase (NEGATIVE) Urine RBC (0) Urine WBC (0) Ur Squamous Epith Cells (NS,R,O) Urine Bacteria (NS) Urine Mucus (NS) Vancomycin Trough (10-15) ug/mL 01/02/17 01/03/17 01/03/17 Range/Units 01:00 06:55 06:55 WBC 6.6 (4.5-12.0) X10-3/uL RBC 3.21 L (3.23-5.20) x10(6)uL Hgb 9.3 L (11.5-15.5) g/dL Hct 27.9 L (30.0-51.3) % MCV 86.9 (80-96) fL MCH 28.8 (27.7-33.6) pg MCHC 33.2 (32.2-35.4) g/dL RDW 14.9 (11.5-15.5) % Plt Count 302 (125-369) X10(3)uL MPV 7.4 (7.4-10.4) fL Neut % (Auto) 57.3 (46-82) % Lymph % (Auto) 21.8 (13-37) % [place] % (Auto) 14.5 H (4-12) % Eos % (Auto) 6 H (1.0-5.0) % Baso % (Auto) 0 (0-2) % Neut # (Auto) 3.8 (1.6-8.3) # Lymph # (Auto) 1.4 (0.6-5.0) # [place] # (Auto) 1.0 (0.0-1.3) # Eos # (Auto) 0.4 (0.0-0.8) # Baso # (Auto) 0.0 (0.0-0.2) # Sodium 140 (135-145) mmol/L Potassium 3.5 (3.5-5.3) mmol/L Chloride 107 D (100-110) mmol/L Carbon Dioxide 27 (23-29) mmol/L BUN 11 D (8-23) mg/dL Creatinine 0.7 (0.6-1.3) mg/dL Est Cr Clr Drug Dosing 52.40 mL/min Estimated GFR (MDRD) > 60 (>60) BUN/Creatinine Ratio 15.7 (9-20) Glucose 136 H (80-116) mg/dL Calcium 7.9 L (8.6-10.2) mg/dL Total Bilirubin 0.3 (0.1-1.3) mg/dL AST 13 D (5-27) IU/L ALT 14 (14-26) IU/L Alkaline Phosphatase 60 (56-112) IU/L C-Reactive Protein (0.0-1.0) mg/dL Total Protein 5.4 L (6.0-8.0) g/dL Albumin 2.7 L (3.2-4.6) g/dL Globulin 2.7 g/dL Albumin/Globulin Ratio 1.0 Urine Color Yellow (YELLOW) Urine Appearance Slightly cloudy (CLEAR) Urine pH 5.0 (5.0-6.5) Ur Specific [place] 1.020 (1.010-1.025) Urine Protein Negative (NEGATIVE) mg/dL Urine Glucose (UA) Normal (NEGATIVE) mg/dL Urine Ketones Negative (NEGATIVE) mg/dL Urine Occult Blood Negative (NEGATIVE) Urine Nitrite Negative (NEGATIVE) Urine Bilirubin Negative (NEGATIVE) Urine Urobilinogen Normal (NEGATIVE) mg/dL Ur Leukocyte Esterase Negative (NEGATIVE) Urine RBC 0-5 (0) Urine WBC 0-5 (0) Ur Squamous Epith Cells Moderate H (NS,R,O) Urine Bacteria Few H (NS) Urine Mucus Few H (NS) Vancomycin Trough (10-15) ug/mL 01/04/17 01/04/17 01/05/17 Range/Units 06:25 06:25 07:35 WBC 10.5 (4.5-12.0) X10-3/uL RBC 3.52 (3.23-5.20) x10(6)uL Hgb 10.4 L (11.5-15.5) g/dL Hct 31.1 (30.0-51.3) % MCV 88.2 (80-96) fL MCH 29.4 (27.7-33.6) pg MCHC 33.3 (32.2-35.4) g/dL RDW 14.6 (11.5-15.5) % Plt Count 334 (125-369) X10(3)uL MPV 7.7 (7.4-10.4) fL Neut % (Auto) 70.0 (46-82) % Lymph % (Auto) 13.4 (13-37) % [place] % (Auto) 11.6 (4-12) % Eos % (Auto) 5 (1.0-5.0) % Baso % (Auto) 1 (0-2) % Neut # (Auto) 7.3 (1.6-8.3) # Lymph # (Auto) 1.4 (0.6-5.0) # [place] # (Auto) 1.2 (0.0-1.3) # Eos # (Auto) 0.5 (0.0-0.8) # Baso # (Auto) 0.1 (0.0-0.2) # Sodium 140 (135-145) mmol/L Potassium 4.0 (3.5-5.3) mmol/L Chloride 104 (100-110) mmol/L Carbon Dioxide 27 (23-29) mmol/L BUN 9 (8-23) mg/dL Creatinine 0.8 (0.6-1.3) mg/dL Est Cr Clr Drug Dosing 45.85 mL/min Estimated GFR (MDRD) > 60 (>60) BUN/Creatinine Ratio 11.3 (9-20) Glucose 113 (80-116) mg/dL Calcium 8.4 L (8.6-10.2) mg/dL Total Bilirubin (0.1-1.3) mg/dL AST (5-27) IU/L ALT (14-26) IU/L Alkaline Phosphatase (56-112) IU/L C-Reactive Protein 6.1 H* (0.0-1.0) mg/dL Total Protein (6.0-8.0) g/dL Albumin (3.2-4.6) g/dL Globulin g/dL Albumin/Globulin Ratio Urine Color (YELLOW) Urine Appearance (CLEAR) Urine pH (5.0-6.5) Ur Specific [place] (1.010-1.025) Urine Protein (NEGATIVE) mg/dL Urine Glucose (UA) (NEGATIVE) mg/dL Urine Ketones (NEGATIVE) mg/dL Urine Occult Blood (NEGATIVE) Urine Nitrite (NEGATIVE) Urine Bilirubin (NEGATIVE) Urine Urobilinogen (NEGATIVE) mg/dL Ur Leukocyte Esterase (NEGATIVE) Urine RBC (0) Urine WBC (0) Ur Squamous Epith Cells (NS,R,O) Urine Bacteria (NS) Urine Mucus (NS) Vancomycin Trough 17.8 H (10-15) ug/mL 01/05/17 01/05/17 Range/Units 07:35 07:35 WBC 7.2 (4.5-12.0) X10-3/uL RBC 3.47 (3.23-5.20) x10(6)uL Hgb 10.3 L (11.5-15.5) g/dL Hct 30.3 (30.0-51.3) % MCV 87.5 (80-96) fL MCH 29.7 (27.7-33.6) pg MCHC 33.9 (32.2-35.4) g/dL RDW 15.3 (11.5-15.5) % Plt Count 358 (125-369) X10(3)uL MPV 7.5 (7.4-10.4) fL Neut % (Auto) 57.5 (46-82) % Lymph % (Auto) 21.5 (13-37) % [place] % (Auto) 14.1 H (4-12) % Eos % (Auto) 6 H (1.0-5.0) % Baso % (Auto) 1 (0-2) % Neut # (Auto) 4.2 (1.6-8.3) # Lymph # (Auto) 1.5 (0.6-5.0) # [place] # (Auto) 1.0 (0.0-1.3) # Eos # (Auto) 0.5 (0.0-0.8) # Baso # (Auto) 0.0 (0.0-0.2) # Sodium 141 (135-145) mmol/L Potassium 3.9 (3.5-5.3) mmol/L Chloride 107 (100-110) mmol/L Carbon Dioxide 27 (23-29) mmol/L BUN 10 (8-23) mg/dL Creatinine 0.7 (0.6-1.3) mg/dL Est Cr Clr Drug Dosing 52.40 mL/min Estimated GFR (MDRD) > 60 (>60) BUN/Creatinine Ratio 14.3 (9-20) Glucose 112 (80-116) mg/dL Calcium 8.6 (8.6-10.2) mg/dL Total Bilirubin (0.1-1.3) mg/dL AST (5-27) IU/L ALT (14-26) IU/L Alkaline Phosphatase (56-112) IU/L C-Reactive Protein (0.0-1.0) mg/dL Total Protein (6.0-8.0) g/dL Albumin (3.2-4.6) g/dL Globulin g/dL Albumin/Globulin Ratio Urine Color (YELLOW) Urine Appearance (CLEAR) Urine pH (5.0-6.5) Ur Specific [place] (1.010-1.025) Urine Protein (NEGATIVE) mg/dL Urine Glucose (UA) (NEGATIVE) mg/dL Urine Ketones (NEGATIVE) mg/dL Urine Occult Blood (NEGATIVE) Urine Nitrite (NEGATIVE) Urine Bilirubin (NEGATIVE) Urine Urobilinogen (NEGATIVE) mg/dL Ur Leukocyte Esterase (NEGATIVE) Urine RBC (0) Urine WBC (0) Ur Squamous Epith Cells (NS,R,O) Urine Bacteria (NS) Urine Mucus (NS) Vancomycin Trough (10-15) ug/mL Microbiology 01/01/17 22:40 Blood - Venous Aerobic Blood Culture - Final NO GROWTH AFTER 4 DAYS 01/01/17 22:40 Blood - Venous Anaerobic Blood Culture - Final NO GROWTH AFTER 4 DAYS 01/03/17 17:40 Serous Fluid Gram Stain - gram pos Timo Results Last 24 Hours: Med Orders - Current: Current Medications Hydrocodone Bitart/Acetaminophen ([place] 325-5 Mg) 1 tab PO Q4H PRN PRN Reason: Pain Last Admin: 01/06/17 08:44 Dose: 1 tab Artificial Tears (Refresh Tears 0.5%) 0 ml EYEBOTH ASDIRECTED PRN PRN Reason: Dry Eyes Aspirin (Halfprin) 81 mg PO DAILY [facility] Last Admin: 01/06/17 08:33 Dose: 81 mg Bupropion HCl (Wellbutrin Sr) 150 mg PO BID [facility] Last Admin: 01/06/17 09:59 Dose: 150 mg Cetirizine HCl (Zyrtec) 10 mg PO DAILY PRN PRN Reason: Allergies Enoxaparin Sodium (Lovenox) 40 mg SUBCUT DAILY [facility] Last Admin: 01/06/17 08:34 Dose: 40 mg Escitalopram Oxalate (Lexapro) 20 mg PO DAILY [facility] Last Admin: 01/06/17 08:34 Dose: 20 mg Ferrous Sulfate (Ferrous Sulfate) 325 mg PO DAILY [facility] Last Admin: 01/06/17 08:33 Dose: 325 mg Hydroxyzine HCl (Atarax) 25 mg PO BEDTIME PRN PRN Reason: Insomnia Last Admin: 01/06/17 02:17 Dose: 25 mg Sodium Chloride (Normal Saline) 250 mls @ 30 mls/hr IV ASDIRECTED [facility] Last Admin: 01/06/17 08:47 Dose: 30 mls/hr Vancomycin HCl 1 gm/ Sodium (Chloride) 250 mls @ 167 mls/hr IV Q12H [facility] Last Admin: 01/06/17 08:49 Dose: 167 mls/hr Magnesium Hydroxide (Milk Of Magnesia) 30 ml PO Q12H PRN PRN Reason: Constipation Metoprolol Succinate (Toprol Xl) 25 mg PO DAILY [facility] Last Admin: 01/06/17 10:00 Dose: 25 mg Oxybutynin Chloride (Oxybutynin) 10 mg PO BID@0800,2100 [facility] Last Admin: 01/06/17 08:33 Dose: 10 mg Saccharomyces Boulardii (Florastor) 250 mg PO BID [facility] Last Admin: 01/06/17 08:33 Dose: 250 mg Sodium Chloride (Saline Flush) 10 ml FLUSH ASDIRECTED PRN PRN Reason: Keep Vein Open Last Admin: 01/06/17 08:45 Dose: 10 ml Trimethoprim/Sulfamethoxazole (Septra Ds) 1 tab PO BID [facility] Last Admin: 01/06/17 08:35 Dose: 1 tab Vancomycin HCl (Pharmacy To Dose - Vancomycin) 1 dose .XX ASDIRECTED [facility] Discontinued Medications Amoxicillin/Clavulanate Potassium (Augmentin 875 Mg/125 Mg) 1 tab PO Q12H [facility] Last Admin: 01/06/17 08:34 Dose: 1 tab Hydroxyzine Pamoate (Vistaril) 25 mg PO BEDTIME PRN PRN Reason: Insomnia Piperacillin Sod/Tazobactam (Sod 3.375 gm/ Sodium Chloride) 50 mls @ 100 mls/ hr IV Q6H [facility] Last Admin: 01/03/17 06:37 Dose: Not Given Vancomycin HCl 1,500 mg/ (Sodium Chloride) 250 mls @ 166.667 mls/hr IV Q24H [facility] Last Admin: 01/03/17 06:37 Dose: Not Given Sodium Chloride (Normal Saline) 250 mls @ 0 mls/hr IV ASDIRECTED [facility] PRN Reason: KVO Last Admin: 01/01/17 23:54 Dose: 30 mls/hr Piperacillin Sod/Tazobactam (Sod 3.375 gm/ Sodium Chloride) 50 mls @ 100 mls/ hr IV Q6H [facility] Last Admin: 01/02/17 05:57 Dose: 100 mls/hr Vancomycin HCl 1,500 mg/ (Sodium Chloride) 250 mls @ 166.667 mls/hr IV Q24H [facility] Vancomycin HCl 1,500 mg/ (Sodium Chloride) 500 mls @ 333.333 mls/hr IV Q24H [facility] Vancomycin HCl 1,500 mg/ (Sodium Chloride) 500 mls @ 333.333 mls/hr IV Q24H [facility] Last Admin: 01/02/17 01:35 Dose: 333.333 mls/hr Vancomycin HCl 1,500 mg/ (Sodium Chloride) 500 mls @ 333.333 mls/hr IV Q12H [facility] Stop: 01/03/17 23:59 Last Admin: 01/03/17 19:12 Dose: 333.333 mls/hr Vancomycin HCl 1,000 mg/ (Sodium Chloride) 250 mls @ 167 mls/hr IV Q12H [facility] Vancomycin HCl 1,000 mg/Vancomycin HCl 500 mg/ Sodium Chloride 500 mls @ 250 mls/hr IV Q12H [facility] Last Admin: 01/04/17 20:21 Dose: 250 mls/hr Influenza Virus Vaccine (Pharmacy To Dose - Influenza Vaccine) 1 each IM ONETIME ONE Stop: 01/02/17 00:09 Influenza Virus Vaccine (Fluzone Quad [id number]) 60 mcg IM .ONCE ONE Stop: 01/02/17 10:01 Last Admin: 01/02/17 12:59 Dose: 60 mcg Ondansetron HCl (Zofran Odt) 4 mg PO Q6H PRN PRN Reason: nausea, able to take PO Oxybutynin Chloride (Oxybutynin) 10 mg PO BID [facility] Last Admin: 01/04/17 20:21 Dose: 10 mg Silver Sulfadiazine (Silvadene 1% Cream 400 Gm) 0 gm TOP BID [facility] Last Admin: 01/05/17 09:16 Dose: 1 applic Zolpidem Tartrate (Ambien) 10 mg PO ONETIME ONE Stop: 01/02/17 01:21 Last Admin: 01/02/17 02:04 Dose: 10 mg - Exam Physical Findings Comments:: General: Alert, Oriented, Cooperative HEENT: Mucous Membr. Moist/[place] Neck: Supple Lungs: Decreased Breath Sounds. No: Wheezing Cardiovascular: Regular Rate, Regular Rhythm GI/Abdominal Exam: Normal Bowel Sounds, Non-Tender Extremities: Increased Warmth, Redness, Other area of erythema edge and edge of induration improving. tolerating acewraps and wound dressings. ) Peripheral Pulses: 1+: Posterior Tibial (L), Posterior Tibial (R), Dorsalis Pedis (L), Dorsalis Pedis (R) Skin: Warm, Rash (left forearm, intermittent and chronic dry skin dermatitis.) no skin breaks Wound/Incisions: Dressing Dry and Intact Neurological: Sensation Intact Psy/Mental Status: Anxiousness improved. - Problem List & Annotations (1) Venous stasis ulcers of both lower extremities SNOMED Code(s): 973912221 Code(s): I83.019 - VARICOSE VEINS OF RIGHT LOWER EXTREMITY W ULCER OF UNSP SITE; I83.029 - VARICOSE VEINS OF LEFT LOWER EXTREMITY W ULCER OF UNSP SITE Status: Acute (2) MRSA cellulitis SNOMED Code(s): 455074194 Code(s): L03.90 - CELLULITIS, UNSPECIFIED; B95.62 - METHICILLIN RESIS STAPH INFCT CAUSING DISEASES CLASSD [facility] Status: Acute Priority: High (3) Cellulitis of leg without foot, left SNOMED Code(s): 685705058 Code(s): L03.116 - CELLULITIS OF LEFT LOWER LIMB Status: Acute Priority: High (4) Cellulitis of leg without foot, right SNOMED Code(s): 079001772 Code(s): L03.115 - CELLULITIS OF RIGHT LOWER LIMB Status: Acute Priority : High Annotation/Comment:: (5) Cellulitis and abscess of left leg SNOMED Code(s): 854497740 Code(s): L03.116 - CELLULITIS OF LEFT LOWER LIMB; L02.416 - CUTANEOUS ABSCESS OF LEFT LOWER LIMB Status: Acute (6) MRSA (methicillin resistant staph aureus) culture positive SNOMED Code(s): 821241422 Code(s): Z22.322 - CARRIER OR SUSPECTED CARRIER OF METHICILLIN RESIS STAPH Status: Acute Priority: High (7) Chronic acquired lymphedema SNOMED Code(s): 75909879 Code(s): I89.0 - LYMPHEDEMA, NOT ELSEWHERE CLASSIFIED Status: Deleted Annotation/Comment:: Continue to wrap from toes to knee. (8) Urge incontinence of urine SNOMED Code(s): 55238273 Code(s): N39.41 - URGE INCONTINENCE Status: Chronic Annotation/Comment:: Continue oxybutynin. (9) Depression SNOMED Code(s): 85517049 Code(s): F32.9 - MAJOR DEPRESSIVE DISORDER, SINGLE EPISODE, UNSPECIFIED Status: Chronic Qualifiers: Depression Type: major depressive disorder Active/Remission status: currently active Psychotic features: without psychotic features (10) Insomnia SNOMED Code(s): 763225151 Code(s): G47.00 - INSOMNIA, UNSPECIFIED Status: Chronic (11) Iron deficiency anemia SNOMED Code(s): 25796436 Code(s): D50.9 - IRON DEFICIENCY ANEMIA, UNSPECIFIED Status: Chronic (12) Obesity SNOMED Code(s): 483559356 Code(s): E66.9 - OBESITY, UNSPECIFIED Status: Chronic (13) CAD (coronary artery disease) SNOMED Code(s): 43286962 Code(s): I25.10 - ATHSCL HEART DISEASE OF [place] CORONARY ARTERY W/O ANG PCTRS Status: Chronic Qualifiers: Coronary Disease-Associated Artery/Lesion type: [place] artery Associated angina: without angina Annotation/Comment:: Continue outpatient meds. (14) Itching SNOMED Code(s): 677726937 Code(s): L29.9 - PRURITUS, UNSPECIFIED Status: Resolved (15) DVT prophylaxis SNOMED Code(s): 922076323 Code(s): DUW0726 - Status: Acute - Problem List Review Problem List Initiated/Reviewed/Updated: Yes - My Orders Last 24 Hours: My Active Orders 01/06/17 20:30 VANCOMYCIN TROUGH [CHEM] Routine - Assessment Assessment:: please see above. - Plan Plan:: Will continue vanco with troughs drawn until susceptibilities return. improving. Wound cares appropriate and will continue per recommendations. anticipate discharge 3-4 days. pt/ot working with her as well. she lives at home with her son who helps with her daily dressings, however their home has 11 steps to get to bathroom and bedroom which is quite difficult so will be addressing this as well.
--- NOTE | 2017-01-06 11:10 | PCM.PN ---
- General Info Date of Service: 01/06/17 - Patient Data Vitals - Most Recent: Last Vital Signs Temp 98.2 F 01/06/17 08:23 Pulse 74 01/06/17 10:00 Resp 18 01/06/17 08:23 BP 121/50 L 01/06/17 10:00 Pulse Ox 92 L 01/06/17 08:23 Weight - Most Recent: 106.776 kg I&O - Last 24 Hours: Intake & Output 01/05/17 01/06/17 01/06/17 22:59 06:59 14:59 Intake Total 290 280 Output Total 800 500 Balance -510 -500 280 Timo Results Last 24 Hours: Microbiology 01/03/17 17:40 Gram Stain - Final Serous Fluid Body Fluid Culture - Final (Mrsa) Staphylococcus Aureus Med Orders - Current: Current Medications Hydrocodone Bitart/Acetaminophen ([place] 325-5 Mg) 1 tab PO Q4H PRN PRN Reason: Pain Last Admin: 01/06/17 08:44 Dose: 1 tab Artificial Tears (Refresh Tears 0.5%) 0 ml EYEBOTH ASDIRECTED PRN PRN Reason: Dry Eyes Aspirin (Halfprin) 81 mg PO DAILY [facility] Last Admin: 01/06/17 08:33 Dose: 81 mg Bupropion HCl (Wellbutrin Sr) 150 mg PO BID [facility] Last Admin: 01/06/17 09:59 Dose: 150 mg Cetirizine HCl (Zyrtec) 10 mg PO DAILY PRN PRN Reason: Allergies Enoxaparin Sodium (Lovenox) 40 mg SUBCUT DAILY [facility] Last Admin: 01/06/17 08:34 Dose: 40 mg Escitalopram Oxalate (Lexapro) 20 mg PO DAILY [facility] Last Admin: 01/06/17 08:34 Dose: 20 mg Ferrous Sulfate (Ferrous Sulfate) 325 mg PO DAILY [facility] Last Admin: 01/06/17 08:33 Dose: 325 mg Hydroxyzine HCl (Atarax) 25 mg PO BEDTIME PRN PRN Reason: Insomnia Last Admin: 01/06/17 02:17 Dose: 25 mg Sodium Chloride (Normal Saline) 250 mls @ 30 mls/hr IV ASDIRECTED [facility] Last Admin: 01/06/17 08:47 Dose: 30 mls/hr Vancomycin HCl 1 gm/ Sodium (Chloride) 250 mls @ 167 mls/hr IV Q12H [facility] Last Admin: 01/06/17 08:49 Dose: 167 mls/hr Magnesium Hydroxide (Milk Of Magnesia) 30 ml PO Q12H PRN PRN Reason: Constipation Metoprolol Succinate (Toprol Xl) 25 mg PO DAILY [facility] Last Admin: 01/06/17 10:00 Dose: 25 mg Oxybutynin Chloride (Oxybutynin) 10 mg PO BID@0800,2100 [facility] Last Admin: 01/06/17 08:33 Dose: 10 mg Saccharomyces Boulardii (Florastor) 250 mg PO BID [facility] Last Admin: 01/06/17 08:33 Dose: 250 mg Sodium Chloride (Saline Flush) 10 ml FLUSH ASDIRECTED PRN PRN Reason: Keep Vein Open Last Admin: 01/06/17 08:45 Dose: 10 ml Trimethoprim/Sulfamethoxazole (Septra Ds) 1 tab PO BID [facility] Last Admin: 01/06/17 08:35 Dose: 1 tab Vancomycin HCl (Pharmacy To Dose - Vancomycin) 1 dose .XX ASDIRECTED [facility] Discontinued Medications Amoxicillin/Clavulanate Potassium (Augmentin 875 Mg/125 Mg) 1 tab PO Q12H [facility] Last Admin: 01/06/17 08:34 Dose: 1 tab Hydroxyzine Pamoate (Vistaril) 25 mg PO BEDTIME PRN PRN Reason: Insomnia Piperacillin Sod/Tazobactam (Sod 3.375 gm/ Sodium Chloride) 50 mls @ 100 mls/ hr IV Q6H [facility] Last Admin: 01/03/17 06:37 Dose: Not Given Vancomycin HCl 1,500 mg/ (Sodium Chloride) 250 mls @ 166.667 mls/hr IV Q24H [facility] Last Admin: 01/03/17 06:37 Dose: Not Given Sodium Chloride (Normal Saline) 250 mls @ 0 mls/hr IV ASDIRECTED [facility] PRN Reason: KVO Last Admin: 01/01/17 23:54 Dose: 30 mls/hr Piperacillin Sod/Tazobactam (Sod 3.375 gm/ Sodium Chloride) 50 mls @ 100 mls/ hr IV Q6H [facility] Last Admin: 01/02/17 05:57 Dose: 100 mls/hr Vancomycin HCl 1,500 mg/ (Sodium Chloride) 250 mls @ 166.667 mls/hr IV Q24H [facility] Vancomycin HCl 1,500 mg/ (Sodium Chloride) 500 mls @ 333.333 mls/hr IV Q24H [facility] Vancomycin HCl 1,500 mg/ (Sodium Chloride) 500 mls @ 333.333 mls/hr IV Q24H [facility] Last Admin: 01/02/17 01:35 Dose: 333.333 mls/hr Vancomycin HCl 1,500 mg/ (Sodium Chloride) 500 mls @ 333.333 mls/hr IV Q12H [facility] Stop: 01/03/17 23:59 Last Admin: 01/03/17 19:12 Dose: 333.333 mls/hr Vancomycin HCl 1,000 mg/ (Sodium Chloride) 250 mls @ 167 mls/hr IV Q12H [facility] Vancomycin HCl 1,000 mg/Vancomycin HCl 500 mg/ Sodium Chloride 500 mls @ 250 mls/hr IV Q12H [facility] Last Admin: 01/04/17 20:21 Dose: 250 mls/hr Influenza Virus Vaccine (Pharmacy To Dose - Influenza Vaccine) 1 each IM ONETIME ONE Stop: 01/02/17 00:09 Influenza Virus Vaccine (Fluzone Quad [id number]) 60 mcg IM .ONCE ONE Stop: 01/02/17 10:01 Last Admin: 01/02/17 12:59 Dose: 60 mcg Ondansetron HCl (Zofran Odt) 4 mg PO Q6H PRN PRN Reason: nausea, able to take PO Oxybutynin Chloride (Oxybutynin) 10 mg PO BID [facility] Last Admin: 01/04/17 20:21 Dose: 10 mg Silver Sulfadiazine (Silvadene 1% Cream 400 Gm) 0 gm TOP BID [facility] Last Admin: 01/05/17 09:16 Dose: 1 applic Zolpidem Tartrate (Ambien) 10 mg PO ONETIME ONE Stop: 01/02/17 01:21 Last Admin: 01/02/17 02:04 Dose: 10 mg - Problem List & Annotations (1) MRSA cellulitis SNOMED Code(s): 748561170 Code(s): L03.90 - CELLULITIS, UNSPECIFIED; B95.62 - METHICILLIN RESIS STAPH INFCT CAUSING DISEASES CLASSD ELSWHR Status: Acute Priority: High Current Visit: Yes (2) Cellulitis of leg without foot, left SNOMED Code(s): 783531888 Code(s): L03.116 - CELLULITIS OF LEFT LOWER LIMB Status: Acute Priority: High Current Visit: Yes (3) Cellulitis of leg without foot, right SNOMED Code(s): 646327960 Code(s): L03.115 - CELLULITIS OF RIGHT LOWER LIMB Status: Acute Priority : High Current Visit: Yes (4) DVT prophylaxis SNOMED Code(s): 356883031 Code(s): [id number] - Status: Acute Current Visit: Yes Annotation/Comment :: Lovenox. (5) Cellulitis and abscess of left leg SNOMED Code(s): 328416645 Code(s): L03.116 - CELLULITIS OF LEFT LOWER LIMB; L02.416 - CUTANEOUS ABSCESS OF LEFT LOWER LIMB Status: Acute Current Visit: No (6) Chronic acquired lymphedema SNOMED Code(s): 10438924 Code(s): I89.0 - LYMPHEDEMA, NOT ELSEWHERE CLASSIFIED Status: Acute Current Visit: No Annotation/Comment:: Much improved. Continue to wrap from toes to knee. (7) Urge incontinence of urine SNOMED Code(s): 58743546 Code(s): N39.41 - URGE INCONTINENCE Status: Acute Current Visit: Yes Annotation/Comment:: Continue oxybutynin. (8) Depression SNOMED Code(s): 15674319 Code(s): F32.9 - MAJOR DEPRESSIVE DISORDER, SINGLE EPISODE, UNSPECIFIED Status: Acute Current Visit: No (9) Itching SNOMED Code(s): 115042916 Code(s): L29.9 - PRURITUS, UNSPECIFIED Status: Acute Current Visit: No (10) Insomnia SNOMED Code(s): 438244535 Code(s): G47.00 - INSOMNIA, UNSPECIFIED Status: Chronic Current Visit: No (11) Iron deficiency anemia SNOMED Code(s): 96574763 Code(s): D50.9 - IRON DEFICIENCY ANEMIA, UNSPECIFIED Status: Chronic Current Visit: No (12) Obesity SNOMED Code(s): 018130609 Code(s): E66.9 - OBESITY, UNSPECIFIED Status: Chronic Current Visit: No (13) MRSA (methicillin resistant staph aureus) culture positive SNOMED Code(s): 663683005 Code(s): Z22.322 - CARRIER OR SUSPECTED CARRIER OF METHICILLIN RESIS STAPH Status: Acute Priority: High Current Visit: Yes (14) CAD (coronary artery disease) SNOMED Code(s): 69747502 Code(s): I25.10 - ATHSCL HEART DISEASE OF [place] CORONARY ARTERY W/O ANG PCTRS Status: Acute Current Visit: Yes Annotation/Comment:: Continue outpatient meds. Patient denies hx of HTN and hyperlipidemia. - My Orders Last 24 Hours: My Active Orders 01/05/17 16:48 Consult to Physician [CONS] Routine 01/06/17 20:30 VANCOMYCIN TROUGH [CHEM] Routine 01/07/17 05:11 BASIC METABOLIC PANEL,BMP [CHEM] AM C-REACTIVE PROTEIN [CHEM] AM 01/08/17 05:11 BASIC METABOLIC PANEL,BMP [CHEM] AM - Plan Plan:: CODE STATUS discussed at length with the patient on admission. Patient is a full code.
[2017-01-07] MEDS: Acetaminophen/HYDROcodone 325-5 MG Tab PO PRN (04:21)
[2017-01-07] MEDS: Sodium Chloride 0.9% 10 ML Syringe FLUSH PRN (08:54)
[2017-01-07] MEDS: Sodium Chloride 0.9% 250 ML IV SCH (08:55)
[2017-01-07] MEDS: Sulfamethoxazole/Trimethoprim 800-160 MG Tab PO SCH ×2 (09:02→21:42)
[2017-01-07] MEDS: Aspirin 81 MG Tab.EC PO SCH (09:03)
[2017-01-07] MEDS: Oxybutynin 5 MG Tab PO SCH ×2 (09:03→21:42)
[2017-01-07] MEDS: Escitalopram 20 MG Tab PO SCH (09:03)
[2017-01-07] MEDS: Saccharomyces Boulardii (Probiotic) 250 MG Cap PO SCH ×2 (09:03→21:42)
[2017-01-07] MEDS: buPROPion 150 MG Tab.SR PO SCH ×2 (09:03→21:42)
[2017-01-07] MEDS: Metoprolol Succinate 25 MG Tab.ER PO SCH (09:03)
[2017-01-07] MEDS: Ferrous Sulfate 325 MG Tab PO SCH (09:04)
[2017-01-07] MEDS: Enoxaparin 40 MG/0.4 ML Syringe SUBCUT SCH (09:04)
[2017-01-07] MEDS ORDERED: hydrOXYzine HCl 25 MG Tab PO PRN (17:00)
[2017-01-07] MEDS ORDERED: Nitroglycerin 0.4 MG Tab.SL SL PRN (17:00)
--- NOTE | 2017-01-07 17:05 | PCM.PN ---
- General Info Date of Service: 01/07/17 Functional Status: Reports: Pain Controlled, Tolerating Diet, Ambulating, Incentive Spirometry. Denies: New Symptoms - Review of Systems Systems Review Comment:: General: Denies: Fever Pulmonary: Denies: Shortness of Breath Cardiovascular: Denies: Chest Pain Musculoskeletal: Denies: Leg Pain Skin: Reports: Pruritis to arm improving. Neurological: Denies: Confusion Psychiatric: Reports: Anxiety keeps her up at night still a bit but better. - Patient Data Vitals - Most Recent: Last Vital Signs Temp 97.7 F 01/07/17 16:00 Pulse 82 01/07/17 16:00 Resp 16 01/07/17 16:00 BP 122/54 L 01/07/17 16:00 Pulse Ox 92 L 01/07/17 16:00 Weight - Most Recent: 107.501 kg I&O - Last 24 Hours: Intake & Output 01/07/17 01/07/17 01/07/17 06:59 14:59 22:59 Intake Total 280 280 Output Total 600 Balance 280 -320 Lab Results Last 24 Hours: Laboratory Results - last 24 hr 01/06/17 01/07/17 Range/Units 20:30 06:58 Sodium 142 (135-145) mmol/L Potassium 3.9 (3.5-5.3) mmol/L Chloride 109 (100-110) mmol/L Carbon Dioxide 25 (23-29) mmol/L BUN 11 (8-23) mg/dL Creatinine 0.8 (0.6-1.3) mg/dL Est Cr Clr Drug Dosing 45.85 mL/min Estimated GFR (MDRD) > 60 (>60) BUN/Creatinine Ratio 13.8 (9-20) Glucose 97 (80-116) mg/dL Calcium 8.5 L (8.6-10.2) mg/dL C-Reactive Protein 3.1 H* (0.0-1.0) mg/dL Vancomycin Trough 15.1 H (10-15) ug/mL Med Orders - Current: Current Medications Hydrocodone Bitart/Acetaminophen ([place] 325-5 Mg) 1 tab PO Q4H PRN PRN Reason: Pain Last Admin: 01/07/17 04:21 Dose: 1 tab Artificial Tears (Refresh Tears 0.5%) 0 ml EYEBOTH ASDIRECTED PRN PRN Reason: Dry Eyes Aspirin (Halfprin) 81 mg PO DAILY [facility] Last Admin: 01/07/17 09:03 Dose: 81 mg Atorvastatin Calcium (Lipitor) 40 mg PO DAILY [facility] Bupropion HCl (Wellbutrin Sr) 150 mg PO BID [facility] Last Admin: 01/07/17 09:03 Dose: 150 mg Cetirizine HCl (Zyrtec) 10 mg PO DAILY PRN PRN Reason: Allergies Enoxaparin Sodium (Lovenox) 40 mg SUBCUT DAILY [facility] Last Admin: 01/07/17 09:04 Dose: 40 mg Escitalopram Oxalate (Lexapro) 20 mg PO DAILY [facility] Last Admin: 01/07/17 09:03 Dose: 20 mg Ferrous Sulfate (Ferrous Sulfate) 325 mg PO DAILY [facility] Last Admin: 01/07/17 09:04 Dose: 325 mg Hydroxyzine HCl (Atarax) 25 mg PO BEDTIME PRN PRN Reason: Insomnia Last Admin: 01/06/17 22:03 Dose: 25 mg Hydroxyzine HCl (Atarax) 25 mg PO QID PRN PRN Reason: Itching Magnesium Hydroxide (Milk Of Magnesia) 30 ml PO Q12H PRN PRN Reason: Constipation Metoprolol Succinate (Toprol Xl) 25 mg PO DAILY [facility] Last Admin: 01/07/17 09:03 Dose: 25 mg Nitroglycerin (Nitrostat) 0.4 mg SL Q5M PRN PRN Reason: Chest Pain Oxybutynin Chloride (Oxybutynin) 10 mg PO BID@0800,2100 [facility] Last Admin: 01/07/17 09:03 Dose: 10 mg Saccharomyces Boulardii (Florastor) 250 mg PO BID [facility] Last Admin: 01/07/17 09:03 Dose: 250 mg Sodium Chloride (Saline Flush) 10 ml FLUSH ASDIRECTED PRN PRN Reason: Keep Vein Open Last Admin: 01/07/17 08:54 Dose: 10 ml Trimethoprim/Sulfamethoxazole (Septra Ds) 1 tab PO BID [facility] Last Admin: 01/07/17 09:02 Dose: 1 tab Discontinued Medications Amoxicillin/Clavulanate Potassium (Augmentin 875 Mg/125 Mg) 1 tab PO Q12H [facility] Last Admin: 01/06/17 08:34 Dose: 1 tab Hydroxyzine Pamoate (Vistaril) 25 mg PO BEDTIME PRN PRN Reason: Insomnia Piperacillin Sod/Tazobactam (Sod 3.375 gm/ Sodium Chloride) 50 mls @ 100 mls/ hr IV Q6H [facility] Last Admin: 01/03/17 06:37 Dose: Not Given Vancomycin HCl 1,500 mg/ (Sodium Chloride) 250 mls @ 166.667 mls/hr IV Q24H [facility] Last Admin: 01/03/17 06:37 Dose: Not Given Sodium Chloride (Normal Saline) 250 mls @ 0 mls/hr IV ASDIRECTED [facility] PRN Reason: KVO Last Admin: 01/01/17 23:54 Dose: 30 mls/hr Piperacillin Sod/Tazobactam (Sod 3.375 gm/ Sodium Chloride) 50 mls @ 100 mls/ hr IV Q6H [facility] Last Admin: 01/02/17 05:57 Dose: 100 mls/hr Vancomycin HCl 1,500 mg/ (Sodium Chloride) 250 mls @ 166.667 mls/hr IV Q24H [facility] Vancomycin HCl 1,500 mg/ (Sodium Chloride) 500 mls @ 333.333 mls/hr IV Q24H [facility] Vancomycin HCl 1,500 mg/ (Sodium Chloride) 500 mls @ 333.333 mls/hr IV Q24H [facility] Last Admin: 01/02/17 01:35 Dose: 333.333 mls/hr Vancomycin HCl 1,500 mg/ (Sodium Chloride) 500 mls @ 333.333 mls/hr IV Q12H [facility] Stop: 01/03/17 23:59 Last Admin: 01/03/17 19:12 Dose: 333.333 mls/hr Vancomycin HCl 1,000 mg/ (Sodium Chloride) 250 mls @ 167 mls/hr IV Q12H [facility] Vancomycin HCl 1,000 mg/Vancomycin HCl 500 mg/ Sodium Chloride 500 mls @ 250 mls/hr IV Q12H [facility] Last Admin: 01/04/17 20:21 Dose: 250 mls/hr Sodium Chloride (Normal Saline) 250 mls @ 30 mls/hr IV ASDIRECTED [facility] Last Admin: 01/07/17 08:55 Dose: 30 mls/hr Vancomycin HCl 1 gm/ Sodium (Chloride) 250 mls @ 167 mls/hr IV Q12H [facility] Last Admin: 01/07/17 08:54 Dose: 167 mls/hr Influenza Virus Vaccine (Pharmacy To Dose - Influenza Vaccine) 1 each IM ONETIME ONE Stop: 01/02/17 00:09 Influenza Virus Vaccine (Fluzone Quad [id number]) 60 mcg IM .ONCE ONE Stop: 01/02/17 10:01 Last Admin: 01/02/17 12:59 Dose: 60 mcg Ondansetron HCl (Zofran Odt) 4 mg PO Q6H PRN PRN Reason: nausea, able to take PO Oxybutynin Chloride (Oxybutynin) 10 mg PO BID [facility] Last Admin: 01/04/17 20:21 Dose: 10 mg Silver Sulfadiazine (Silvadene 1% Cream 400 Gm) 0 gm TOP BID [facility] Last Admin: 01/05/17 09:16 Dose: 1 applic Vancomycin HCl (Pharmacy To Dose - Vancomycin) 1 dose .XX ASDIRECTED [facility] Zolpidem Tartrate (Ambien) 10 mg PO ONETIME ONE Stop: 01/02/17 01:21 Last Admin: 01/02/17 02:04 Dose: 10 mg - Exam Physical Findings Comments:: General: Alert, Oriented, Cooperative HEENT: Mucous Membr. Moist/[place] Neck: Supple Lungs: Decreased Breath Sounds. No: Wheezing Cardiovascular: Regular Rate, Regular Rhythm GI/Abdominal Exam: Normal Bowel Sounds, Non-Tender Extremities: Increased Warmth, Redness, Other area of erythema edge and edge of induration improving. tolerating acewraps and wound dressings. ) Skin: Warm, Rash (left forearm, intermittent and chronic dry skin dermatitis improved.)no skin breaks Wound/Incisions: Dressing Dry and Intact Neurological: Sensation Intact Psy/Mental Status: Anxiousness improved. - Problem List & Annotations (1) Venous stasis ulcers of both lower extremities SNOMED Code(s): 745180513 Code(s): I83.019 - VARICOSE VEINS OF RIGHT LOWER EXTREMITY W ULCER OF UNSP SITE; I83.029 - VARICOSE VEINS OF LEFT LOWER EXTREMITY W ULCER OF UNSP SITE Status: Acute (2) MRSA cellulitis SNOMED Code(s): 899874326 Code(s): L03.90 - CELLULITIS, UNSPECIFIED; B95.62 - METHICILLIN RESIS STAPH INFCT CAUSING DISEASES CLASSD ELSWHR Status: Acute Priority: High (3) MRSA (methicillin resistant staph aureus) culture positive SNOMED Code(s): 270848936 Code(s): Z22.322 - CARRIER OR SUSPECTED CARRIER OF METHICILLIN RESIS STAPH Status: Acute Priority: High (4) Cellulitis of leg without foot, left SNOMED Code(s): 894827830 Code(s): L03.116 - CELLULITIS OF LEFT LOWER LIMB Status: Acute Priority: High (5) Cellulitis of leg without foot, right SNOMED Code(s): 744171038 Code(s): L03.115 - CELLULITIS OF RIGHT LOWER LIMB Status: Acute Priority : High Annotation/Comment:: (6) Cellulitis and abscess of left leg SNOMED Code(s): 076412586 Code(s): L03.116 - CELLULITIS OF LEFT LOWER LIMB; L02.416 - CUTANEOUS ABSCESS OF LEFT LOWER LIMB Status: Acute (7) CAD (coronary artery disease) SNOMED Code(s): 89388143 Code(s): I25.10 - ATHSCL HEART DISEASE OF [place] CORONARY ARTERY W/O ANG PCTRS Status: Chronic Qualifiers: Coronary Disease-Associated Artery/Lesion type: [place] artery Associated angina: without angina Annotation/Comment:: Continue outpatient meds. (8) Urge incontinence of urine SNOMED Code(s): 51949604 Code(s): N39.41 - URGE INCONTINENCE Status: Chronic Annotation/Comment:: Continue oxybutynin. (9) Depression SNOMED Code(s): 85367353 Code(s): F32.9 - MAJOR DEPRESSIVE DISORDER, SINGLE EPISODE, UNSPECIFIED Status: Chronic Qualifiers: Depression Type: major depressive disorder Active/Remission status: currently active Psychotic features: without psychotic features (10) Itching SNOMED Code(s): 701443918 Code(s): L29.9 - PRURITUS, UNSPECIFIED Status: Resolved (11) Insomnia SNOMED Code(s): 591361987 Code(s): G47.00 - INSOMNIA, UNSPECIFIED Status: Chronic (12) Iron deficiency anemia SNOMED Code(s): 58705221 Code(s): D50.9 - IRON DEFICIENCY ANEMIA, UNSPECIFIED Status: Chronic (13) Obesity SNOMED Code(s): 335809275 Code(s): E66.9 - OBESITY, UNSPECIFIED Status: Chronic (14) DVT prophylaxis SNOMED Code(s): 625765334 Code(s): SJF4228 - Status: Acute - Problem List Review Problem List Initiated/Reviewed/Updated: Yes - My Orders Last 24 Hours: My Active Orders 01/07/17 17:00 Nitroglycerin [Nitrostat] 0.4 mg SL Q5M PRN hydrOXYzine HCl [Atarax] 25 mg PO QID PRN 01/08/17 05:11 BASIC METABOLIC PANEL,BMP [CHEM] AM 01/08/17 09:00 atorvaSTATin [Lipitor] 40 mg PO DAILY - Assessment Assessment:: please see above. - Plan Plan:: susceptibilities MRSA to bactrim. stop vanco. will restart home meds. working with therapies and wound cares improving lower extremities. social media content manager on board for discharge planning and follow up. Anticipate discharge 24-48h.
--- NOTE | 2017-01-07 18:59 | PCM.SN ---
- Free Text/Narrative Note: dressing change performed erythema is improving aquace Ag is adhering. minimal amount drainage. wounds are improving. will continue current dressing changes.
[2017-01-07] MEDS: hydrOXYzine HCl 25 MG Tab PO PRN (21:54)
[2017-01-08] MEDS: Sodium Chloride 0.9% 10 ML Syringe FLUSH PRN (09:10)
[2017-01-08] MEDS: Oxybutynin 5 MG Tab PO SCH ×2 (09:11→20:19)
[2017-01-08] MEDS: Ferrous Sulfate 325 MG Tab PO SCH (09:11)
[2017-01-08] MEDS: Saccharomyces Boulardii (Probiotic) 250 MG Cap PO SCH ×2 (09:11→20:19)
[2017-01-08] MEDS: Aspirin 81 MG Tab.EC PO SCH (09:12)
[2017-01-08] MEDS: Escitalopram 20 MG Tab PO SCH (09:12)
[2017-01-08] MEDS: atorvaSTATin 40 MG Tab PO SCH (09:12)
[2017-01-08] MEDS: Metoprolol Succinate 25 MG Tab.ER PO SCH (09:14)
[2017-01-08] MEDS: Enoxaparin 40 MG/0.4 ML Syringe SUBCUT SCH (09:14)
[2017-01-08] MEDS: Sulfamethoxazole/Trimethoprim 800-160 MG Tab PO SCH ×2 (09:14→20:19)
[2017-01-08] MEDS: buPROPion 150 MG Tab.SR PO SCH ×2 (09:15→20:19)
--- NOTE | 2017-01-08 18:51 | PCM.PN ---
- General Info Date of Service: 01/08/17 Functional Status: Reports: Pain Controlled, Tolerating Diet, Ambulating, Urinating, Incentive Spirometry. Denies: New Symptoms - Review of Systems Systems Review Comment:: General: Denies: Fever Pulmonary: Denies: Shortness of Breath Cardiovascular: Denies: Chest Pain Musculoskeletal: Denies: Leg Pain Skin: Reports: Pruritis to arm resolved. Neurological: Denies: Confusion Psychiatric: Reports: Anxiety resolved. - Patient Data Vitals - Most Recent: Last Vital Signs Temp 97.8 F 01/08/17 16:00 Pulse 70 01/08/17 16:00 Resp 20 01/08/17 16:00 BP 132/64 01/08/17 16:00 Pulse Ox 94 L 01/08/17 16:00 Weight - Most Recent: 105.007 kg Lab Results Last 24 Hours: Laboratory Results - last 24 hr 01/08/17 Range/Units 06:45 Sodium 143 (135-145) mmol/L Potassium 4.4 (3.5-5.3) mmol/L Chloride 107 (100-110) mmol/L Carbon Dioxide 27 (23-29) mmol/L BUN 15 (8-23) mg/dL Creatinine 0.8 (0.6-1.3) mg/dL Est Cr Clr Drug Dosing 45.85 mL/min Estimated GFR (MDRD) > 60 (>60) BUN/Creatinine Ratio 18.8 (9-20) Glucose 95 (80-116) mg/dL Calcium 8.8 (8.6-10.2) mg/dL Timo Results Last 24 Hours: Microbiology 01/01/17 22:40 Blood - Venous Aerobic Blood Culture - Final NO GROWTH AFTER 5 DAYS 01/01/17 22:40 Blood - Venous Anaerobic Blood Culture - Final NO GROWTH AFTER 5 DAYS 01/03/17 17:40 Serous Fluid Gram Stain - Final 01/03/17 17:40 Serous Fluid Body Fluid Culture - Final (Mrsa) Staphylococcus Aureus Med Orders - Current: Current Medications Hydrocodone Bitart/Acetaminophen ([place] 325-5 Mg) 1 tab PO Q4H PRN PRN Reason: Pain Last Admin: 01/07/17 04:21 Dose: 1 tab Artificial Tears (Refresh Tears 0.5%) 0 ml EYEBOTH ASDIRECTED PRN PRN Reason: Dry Eyes Aspirin (Halfprin) 81 mg PO DAILY [facility] Last Admin: 01/08/17 09:12 Dose: 81 mg Atorvastatin Calcium (Lipitor) 40 mg PO DAILY [facility] Last Admin: 01/08/17 09:12 Dose: 40 mg Bupropion HCl (Wellbutrin Sr) 150 mg PO BID [facility] Last Admin: 01/08/17 09:15 Dose: 150 mg Cetirizine HCl (Zyrtec) 10 mg PO DAILY PRN PRN Reason: Allergies Enoxaparin Sodium (Lovenox) 40 mg SUBCUT DAILY [facility] Last Admin: 01/08/17 09:14 Dose: 40 mg Escitalopram Oxalate (Lexapro) 20 mg PO DAILY [facility] Last Admin: 01/08/17 09:12 Dose: 20 mg Ferrous Sulfate (Ferrous Sulfate) 325 mg PO DAILY [facility] Last Admin: 01/08/17 09:11 Dose: 325 mg Hydroxyzine HCl (Atarax) 25 mg PO BEDTIME PRN PRN Reason: Insomnia Last Admin: 01/07/17 21:54 Dose: 25 mg Hydroxyzine HCl (Atarax) 25 mg PO QID PRN PRN Reason: Itching Magnesium Hydroxide (Milk Of Magnesia) 30 ml PO Q12H PRN PRN Reason: Constipation Metoprolol Succinate (Toprol Xl) 25 mg PO DAILY [facility] Last Admin: 01/08/17 09:14 Dose: 25 mg Nitroglycerin (Nitrostat) 0.4 mg SL Q5M PRN PRN Reason: Chest Pain Oxybutynin Chloride (Oxybutynin) 10 mg PO BID@0800,2100 [facility] Last Admin: 01/08/17 09:11 Dose: 10 mg Saccharomyces Boulardii (Florastor) 250 mg PO BID [facility] Last Admin: 01/08/17 09:11 Dose: 250 mg Sodium Chloride (Saline Flush) 10 ml FLUSH ASDIRECTED PRN PRN Reason: Keep Vein Open Last Admin: 01/08/17 09:10 Dose: 10 ml Trimethoprim/Sulfamethoxazole (Septra Ds) 1 tab PO BID [facility] Last Admin: 01/08/17 09:14 Dose: 1 tab Discontinued Medications Amoxicillin/Clavulanate Potassium (Augmentin 875 Mg/125 Mg) 1 tab PO Q12H [facility] Last Admin: 01/06/17 08:34 Dose: 1 tab Hydroxyzine Pamoate (Vistaril) 25 mg PO BEDTIME PRN PRN Reason: Insomnia Piperacillin Sod/Tazobactam (Sod 3.375 gm/ Sodium Chloride) 50 mls @ 100 mls/ hr IV Q6H [facility] Last Admin: 01/03/17 06:37 Dose: Not Given Vancomycin HCl 1,500 mg/ (Sodium Chloride) 250 mls @ 166.667 mls/hr IV Q24H [facility] Last Admin: 01/03/17 06:37 Dose: Not Given Sodium Chloride (Normal Saline) 250 mls @ 0 mls/hr IV ASDIRECTED [facility] PRN Reason: KVO Last Admin: 01/01/17 23:54 Dose: 30 mls/hr Piperacillin Sod/Tazobactam (Sod 3.375 gm/ Sodium Chloride) 50 mls @ 100 mls/ hr IV Q6H [facility] Last Admin: 01/02/17 05:57 Dose: 100 mls/hr Vancomycin HCl 1,500 mg/ (Sodium Chloride) 250 mls @ 166.667 mls/hr IV Q24H [facility] Vancomycin HCl 1,500 mg/ (Sodium Chloride) 500 mls @ 333.333 mls/hr IV Q24H [facility] Vancomycin HCl 1,500 mg/ (Sodium Chloride) 500 mls @ 333.333 mls/hr IV Q24H [facility] Last Admin: 01/02/17 01:35 Dose: 333.333 mls/hr Vancomycin HCl 1,500 mg/ (Sodium Chloride) 500 mls @ 333.333 mls/hr IV Q12H [facility] Stop: 01/03/17 23:59 Last Admin: 01/03/17 19:12 Dose: 333.333 mls/hr Vancomycin HCl 1,000 mg/ (Sodium Chloride) 250 mls @ 167 mls/hr IV Q12H [facility] Vancomycin HCl 1,000 mg/Vancomycin HCl 500 mg/ Sodium Chloride 500 mls @ 250 mls/hr IV Q12H [facility] Last Admin: 01/04/17 20:21 Dose: 250 mls/hr Sodium Chloride (Normal Saline) 250 mls @ 30 mls/hr IV ASDIRECTED [facility] Last Admin: 01/07/17 08:55 Dose: 30 mls/hr Vancomycin HCl 1 gm/ Sodium (Chloride) 250 mls @ 167 mls/hr IV Q12H [facility] Last Admin: 01/07/17 08:54 Dose: 167 mls/hr Influenza Virus Vaccine (Pharmacy To Dose - Influenza Vaccine) 1 each IM ONETIME ONE Stop: 01/02/17 00:09 Influenza Virus Vaccine (Fluzone Quad [id number]) 60 mcg IM .ONCE ONE Stop: 01/02/17 10:01 Last Admin: 01/02/17 12:59 Dose: 60 mcg Ondansetron HCl (Zofran Odt) 4 mg PO Q6H PRN PRN Reason: nausea, able to take PO Oxybutynin Chloride (Oxybutynin) 10 mg PO BID [facility] Last Admin: 01/04/17 20:21 Dose: 10 mg Silver Sulfadiazine (Silvadene 1% Cream 400 Gm) 0 gm TOP BID [facility] Last Admin: 01/05/17 09:16 Dose: 1 applic Vancomycin HCl (Pharmacy To Dose - Vancomycin) 1 dose .XX ASDIRECTED [facility] Zolpidem Tartrate (Ambien) 10 mg PO ONETIME ONE Stop: 01/02/17 01:21 Last Admin: 01/02/17 02:04 Dose: 10 mg - Exam Physical Findings Comments:: General: Alert, Oriented, Cooperative HEENT: Mucous Membr. Moist/[place] Neck: Supple Lungs: Decreased Breath Sounds but improving with using IS. No: Wheezing Cardiovascular: Regular Rate, Regular Rhythm GI/Abdominal Exam: Normal Bowel Sounds, Non-Tender Extremities: no increased warmth, redness. area of erythema edge and edge of induration improving. tolerating acewraps and wound dressings. ) Skin: Warm, Rash (left forearm resolved) Wound/Incisions: Dressing Dry and Intact Neurological: Sensation Intact Psy/Mental Status: Anxiousness improved. - Problem List & Annotations (1) Venous stasis ulcers of both lower extremities SNOMED Code(s): 933482569 Code(s): I83.019 - VARICOSE VEINS OF RIGHT LOWER EXTREMITY W ULCER OF UNSP SITE; I83.029 - VARICOSE VEINS OF LEFT LOWER EXTREMITY W ULCER OF UNSP SITE Status: Acute (2) MRSA (methicillin resistant staph aureus) culture positive SNOMED Code(s): 534461663 Code(s): Z22.322 - CARRIER OR SUSPECTED CARRIER OF METHICILLIN RESIS STAPH Status: Acute Priority: High (3) CAD (coronary artery disease) SNOMED Code(s): 54566986 Code(s): I25.10 - ATHSCL HEART DISEASE OF [place] CORONARY ARTERY W/O ANG PCTRS Status: Chronic Qualifiers: Coronary Disease-Associated Artery/Lesion type: ute artery Associated angina: without angina Annotation/Comment:: Continue outpatient meds. (4) Cellulitis of leg without foot, left SNOMED Code(s): 997028821 Code(s): L03.116 - CELLULITIS OF LEFT LOWER LIMB Status: Acute Priority: High (5) MRSA cellulitis SNOMED Code(s): 613819050 Code(s): L03.90 - CELLULITIS, UNSPECIFIED; B95.62 - METHICILLIN RESIS STAPH INFCT CAUSING DISEASES CLASSD [id number] Status: Acute Priority: High (6) DVT prophylaxis SNOMED Code(s): 362497569 Code(s): KIK3282 - Status: Acute (7) Cellulitis of leg without foot, right SNOMED Code(s): 339190283 Code(s): L03.115 - CELLULITIS OF RIGHT LOWER LIMB Status: Acute Priority : High Annotation/Comment:: (8) Urge incontinence of urine SNOMED Code(s): 52299302 Code(s): N39.41 - URGE INCONTINENCE Status: Chronic Annotation/Comment:: Continue oxybutynin. (9) Cellulitis and abscess of left leg SNOMED Code(s): 214620878 Code(s): L03.116 - CELLULITIS OF LEFT LOWER LIMB; L02.416 - CUTANEOUS ABSCESS OF LEFT LOWER LIMB Status: Acute (10) Depression SNOMED Code(s): 22993912 Code(s): F32.9 - MAJOR DEPRESSIVE DISORDER, SINGLE EPISODE, UNSPECIFIED Status: Chronic Qualifiers: Depression Type: major depressive disorder Active/Remission status: currently active Psychotic features: without psychotic features (11) Itching SNOMED Code(s): 608962254 Code(s): L29.9 - PRURITUS, UNSPECIFIED Status: Resolved (12) Insomnia SNOMED Code(s): 438049317 Code(s): G47.00 - INSOMNIA, UNSPECIFIED Status: Chronic (13) Iron deficiency anemia SNOMED Code(s): 05743473 Code(s): D50.9 - IRON DEFICIENCY ANEMIA, UNSPECIFIED Status: Chronic (14) Obesity SNOMED Code(s): 317222562 Code(s): E66.9 - OBESITY, UNSPECIFIED Status: Chronic - Problem List Review Problem List Initiated/Reviewed/Updated: Yes - My Orders Last 24 Hours: My Active Orders 01/08/17 09:00 atorvaSTATin [Lipitor] 40 mg PO DAILY - Assessment Assessment:: Please see above - Plan Plan:: susceptibilities MRSA to bactrim so continue bid tolerating well. home meds restarted and resuming baseline status regarding active comorbidities. working with therapies and wound cares improving lower extremities. social science instructor on board for discharge planning and follow up. Anticipate discharge 24h.
[2017-01-08] MEDS: hydrOXYzine HCl 25 MG Tab PO PRN (22:49)
[2017-01-08] MEDS: Acetaminophen/HYDROcodone 325-5 MG Tab PO PRN (22:49)
[2017-01-09] MEDS: Ferrous Sulfate 325 MG Tab PO SCH (09:12)
[2017-01-09] MEDS: Oxybutynin 5 MG Tab PO SCH (09:12)
[2017-01-09] MEDS: atorvaSTATin 40 MG Tab PO SCH (09:14)
[2017-01-09] MEDS: Escitalopram 20 MG Tab PO SCH (09:14)
[2017-01-09] MEDS: Aspirin 81 MG Tab.EC PO SCH (09:14)
[2017-01-09] MEDS: Metoprolol Succinate 25 MG Tab.ER PO SCH (09:15)
[2017-01-09] MEDS: Enoxaparin 40 MG/0.4 ML Syringe SUBCUT SCH (09:15)
[2017-01-09] MEDS: Sulfamethoxazole/Trimethoprim 800-160 MG Tab PO SCH (09:15)
[2017-01-09] MEDS: Saccharomyces Boulardii (Probiotic) 250 MG Cap PO SCH (09:16)
[2017-01-09] MEDS: buPROPion 150 MG Tab.SR PO SCH (09:16)
--- NOTE | 2017-01-09 10:08 | PCM.DCSUM1 ---
Discharge Summary - Hospital Course Free Text/Narrative:: 76y female admitted for increase lower extremity edema and new onset venous stasis ulcerations that were not responding to home cares. noted increased redness weeping the swelling. chronic lymphedema. hx of wounds in the past requiring abx, wound cares and agressive therapy to reduce edema while monitoring for any exacerbation or worsening or her comorbities. course of stay included consultation with Dr. Mackenzie MD for wound assessment, recommendation and management. [place] wraps, elevation and lasix for excess fluid. empiric abx IV tailored to superficial culture reports positive for MRSA susceptible to Bactrim. Therapies for cares, ambulation, strengthening and discharge planning for appropriate follow and transition to home. no other medication changes were made. follow up scheduled. HPI Initial Comments: - Related Data Allergies Allergy/AdvReac Type Severity Reaction Status Date / Time oxytetracycline Allergy Mild Dizziness Verified 01/01/17 22:27 [From Terramycin] oxytetracycline HCl Allergy Mild Dizziness Verified 01/01/17 22:27 [From Terramycin] Home Meds: Home Meds Prior to Admission. Aspirin [Low Dose Aspirin EC] 81 mg PO DAILY 12/09/13 [History] Oxybutynin 10 mg PO BID 12/09/13 [History] buPROPion HCl [Wellbutrin SR] 150 mg PO BID 12/09/13 [History] Lisinopril [Prinivil] 5 mg PO DAILY #30 tablet 12/16/13 [Rx] atorvaSTATin [Lipitor] 40 mg PO DAILY 08/29/16 [History] Ferrous Sulfate 324 mg PO DAILY 09/03/16 [History] Carboxymethylcellulose Sodium [Refresh Tears] 15 ml OP ASDIRECTED PRN 09/04/16 [ History] Escitalopram [Lexapro] 20 mg PO DAILY #30 tablet 09/10/16 [Rx] Gabapentin [Neurontin] 300 mg PO TID #90 cap 09/10/16 [Rx] metroNIDAZOLE [Flagyl] 500 mg PO Q8H #30 tablet 09/10/16 [Rx] - Discharge Data Discharge Date: 01/09/17 Discharge Disposition: Home, W Home Health Agency 06 Condition: Fair - Discharge Diagnosis/Problem(s) (1) Venous stasis ulcers of both lower extremities SNOMED Code(s): 536220797 ICD Code: I83.019 - VARICOSE VEINS OF RIGHT LOWER EXTREMITY W ULCER OF UNSP SITE; I83.029 - VARICOSE VEINS OF LEFT LOWER EXTREMITY W ULCER OF UNSP SITE Status: Acute (2) MRSA (methicillin resistant staph aureus) culture positive SNOMED Code(s): 273851999 ICD Code: Z22.322 - CARRIER OR SUSPECTED CARRIER OF METHICILLIN RESIS STAPH Status: Acute Priority: High (3) MRSA cellulitis SNOMED Code(s): 575529206 ICD Code: L03.90 - CELLULITIS, UNSPECIFIED; B95.62 - METHICILLIN RESIS STAPH INFCT CAUSING DISEASES CLASSD ELSWHR Status: Acute Priority: High (4) Cellulitis of leg without foot, left SNOMED Code(s): 172676995 ICD Code: L03.116 - CELLULITIS OF LEFT LOWER LIMB Status: Acute Priority : High (5) Cellulitis of leg without foot, right SNOMED Code(s): 601626968 ICD Code: L03.115 - CELLULITIS OF RIGHT LOWER LIMB Status: Acute Priority : High Problem Details: (6) Cellulitis and abscess of left leg SNOMED Code(s): 922994429 ICD Code: L03.116 - CELLULITIS OF LEFT LOWER LIMB; L02.416 - CUTANEOUS ABSCESS OF LEFT LOWER LIMB Status: Acute (7) CAD (coronary artery disease) SNOMED Code(s): 50713409 ICD Code: I25.10 - ATHSCL HEART DISEASE OF [place] CORONARY ARTERY W/O ANG PCTRS Status: Chronic Problem Details: Continue outpatient meds. Qualifiers: Coronary Disease-Associated Artery/Lesion type: [place] artery Associated angina: without angina (8) Urge incontinence of urine SNOMED Code(s): 66578514 ICD Code: N39.41 - URGE INCONTINENCE Status: Chronic Problem Details: Continue oxybutynin. (9) Depression SNOMED Code(s): 50571335 ICD Code: F32.9 - MAJOR DEPRESSIVE DISORDER, SINGLE EPISODE, UNSPECIFIED Status: Chronic Qualifiers: Depression Type: major depressive disorder Active/Remission status: currently active Psychotic features: without psychotic features (10) Itching SNOMED Code(s): 287206102 ICD Code: L29.9 - PRURITUS, UNSPECIFIED Status: Resolved (11) Insomnia SNOMED Code(s): 183443721 ICD Code: G47.00 - INSOMNIA, UNSPECIFIED Status: Chronic (12) Iron deficiency anemia SNOMED Code(s): 47587794 ICD Code: D50.9 - IRON DEFICIENCY ANEMIA, UNSPECIFIED Status: Chronic (13) Obesity SNOMED Code(s): 303636270 ICD Code: E66.9 - OBESITY, UNSPECIFIED Status: Chronic (14) DVT prophylaxis SNOMED Code(s): 780162157 ICD Code: AMQ7410 - Status: Acute - Patient Summary/Data Consults: Consultations 01/02/17 15:07 OT Evaluation and Treatment [CONS] Routine Please Evaluate and Treat. OT Reason for Consult: ADL's This query below is only for informational purposes and is not editable. Admission Diagnosis/Problem: Cellulitis of leg, except foot PT Evaluation and Treatment [CONS] Routine Please Evaluate and Treat. PT Reason for Consult: Ambulation Special Instructions: Lymphedema tx as well as ambulation/function ADLS This query below is only for informational purposes and is not editable. Admission Diagnosis/Problem: Cellulitis of leg, except foot 01/05/17 16:48 Consult to Physician [CONS] Routine Consulting Provider: Syed Mann Call Completed to Consulting Physician: hermann ochoa Reason for Consult: wound assessment/management Date Notified: 01/05/17 Time Notified: 15:40 - Patient Instructions Diet: Heart Healthy Diet, Low Sodium Activity: Cough & Deep Breathe, Elevate Extremity Wound/Incision Care: Keep Operative Site/Wound Site Clean and Dry Wound/Incision, Other: dressing changes only to abds every two days then reapply kerlex and ishaan wr Notify Provider of: Fever, Increased Pain, Swelling and Redness, Drainage, Nausea and/or Vomiting - Discharge Plan Prescriptions/Med Rec: Sulfamethoxazole/Trimethoprim [IJD: Sulfamethoxazole/Trimethoprim DS] 1 tab PO BID #8 tablet Home Medications: Home Meds Aspirin [Low Dose Aspirin EC] 81 mg PO DAILY 12/09/13 [History] Oxybutynin 10 mg PO BID 12/09/13 [History] buPROPion HCl [Wellbutrin SR] 150 mg PO BID 12/09/13 [History] atorvaSTATin [Lipitor] 40 mg PO DAILY 08/29/16 [History] Ferrous Sulfate 324 mg PO DAILY 09/03/16 [History] Carboxymethylcellulose Sodium [Refresh Tears] 1 drop EYEBOTH ASDIRECTED PRN 12/12 [History] Escitalopram [Lexapro] 20 mg PO DAILY #30 tablet 09/10/16 [Rx] Cetirizine [ZyrTEC] 10 mg PO DAILY PRN 01/02/17 [History] Metoprolol Succinate 25 mg PO DAILY 01/02/17 [History] Nitroglycerin 0.4 mg SL Q5M PRN 01/02/17 [History] hydrOXYzine HCl [hydrOXYzine] 25 mg PO QID PRN 01/02/17 [History] Saccharomyces Boulardii [Florastor] 250 mg PO BID cap 01/09/17 [Rx] Sulfamethoxazole/Trimethoprim [IJD: Sulfamethoxazole/Trimethoprim DS] 1 tab PO BID #8 tablet 01/09/17 [Rx] Patient Handouts: Cellulitis, Adult, [id number], Venous Thromboembolism Referrals: Lai Lopez MD [Primary Care Provider] - ([address] John MD post hospital follow up.) - Discharge Summary/Plan Comment DC Time >30 min.: Yes Discharge Summary/Plan Comment: She will be discharged to home with [facility] for continued would assessment/ dressing changes/PT/OT for strengthening; ADLs and home safety modifications and recommendations. She will see her Dr. Mackenzie MD in 1 wk for continued wound cares, and her PCP in 2 wks. She understands recommendations and cares as discussed along follow up appts and abx dose, timing and duration. All questions answered and she was discharged to the care of her son. Total Time: 45 min with >50% of time face to face with patient evaluating and reviewing above as well and coordination of cares. - General Info Date of Service: 01/09/17 Functional Status: Reports: Pain Controlled, Tolerating Diet, Ambulating, Urinating, Incentive Spirometry. Denies: New Symptoms - Review of Systems Systems Review Comment: General: Denies: Fever Pulmonary: Denies: Shortness of Breath Cardiovascular: Denies: Chest Pain Musculoskeletal: Denies: Leg Pain Skin: Reports: Pruritis to arm resolved. Neurological: Denies: Confusion Psychiatric: Reports: Anxiety resolved. excited to be going home:-) - Patient Data Vitals - Most Recent: Last Vital Signs Temp 98.2 F 01/09/17 12:15 Pulse 82 01/09/17 12:15 Resp 20 01/09/17 12:15 BP 132/70 01/09/17 12:15 Pulse Ox 90 L 01/09/17 12:15 Weight - Most Recent: 103.192 kg I&O - Last 24 hours: Intake & Output 01/08/17 01/09/17 01/09/17 22:59 06:59 14:59 Output Total 400 Balance -400 Lab Results - Last 24 hrs: Laboratory Tests 01/01/17 01/01/17 01/01/17 Range/Units 22:40 22:40 22:40 WBC 9.3 (4.5-12.0) X10-3/uL RBC 3.86 (3.23-5.20) x10(6)uL Hgb 11.0 L (11.5-15.5) g/dL Hct 33.6 (30.0-51.3) % MCV 87.0 (80-96) fL MCH 28.4 (27.7-33.6) pg MCHC 32.6 (32.2-35.4) g/dL RDW 14.9 (11.5-15.5) % Plt Count 379 H (125-369) X10(3)uL MPV (7.4-10.4) fL Neut % (Auto) (46-82) % Lymph % (Auto) (13-37) % [place] % (Auto) (4-12) % Eos % (Auto) (1.0-5.0) % Baso % (Auto) (0-2) % Neut # (Auto) (1.6-8.3) # Lymph # (Auto) (0.6-5.0) # [place] # (Auto) (0.0-1.3) # Eos # (Auto) (0.0-0.8) # Baso # (Auto) (0.0-0.2) # Sodium 139 (135-145) mmol/L Potassium 4.0 (3.5-5.3) mmol/L Chloride 101 D (100-110) mmol/L Carbon Dioxide 26 (23-29) mmol/L BUN 21 (8-23) mg/dL Creatinine 0.8 (0.6-1.3) mg/dL Est Cr Clr Drug Dosing 45.85 mL/min Estimated GFR (MDRD) > 60 (>60) BUN/Creatinine Ratio 26.3 H (9-20) Glucose 91 (80-116) mg/dL Calcium 8.5 L (8.6-10.2) mg/dL Total Bilirubin (0.1-1.3) mg/dL AST (5-27) IU/L ALT (14-26) IU/L Alkaline Phosphatase (56-112) IU/L C-Reactive Protein 7.8 H* (0.0-1.0) mg/dL Total Protein (6.0-8.0) g/dL Albumin (3.2-4.6) g/dL Globulin g/dL Albumin/Globulin Ratio Urine Color (YELLOW) Urine Appearance (CLEAR) Urine pH (5.0-6.5) Ur Specific [place] (1.010-1.025) Urine Protein (NEGATIVE) mg/dL Urine Glucose (UA) (NEGATIVE) mg/dL Urine Ketones (NEGATIVE) mg/dL Urine Occult Blood (NEGATIVE) Urine Nitrite (NEGATIVE) Urine Bilirubin (NEGATIVE) Urine Urobilinogen (NEGATIVE) mg/dL Ur Leukocyte Esterase (NEGATIVE) Urine RBC (0) Urine WBC (0) Ur Squamous Epith Cells (NS,R,O) Urine Bacteria (NS) Urine Mucus (NS) Vancomycin Trough (10-15) ug/mL 01/02/17 01/03/17 01/03/17 Range/Units 01:00 06:55 06:55 WBC 6.6 (4.5-12.0) X10-3/uL RBC 3.21 L (3.23-5.20) x10(6)uL Hgb 9.3 L (11.5-15.5) g/dL Hct 27.9 L (30.0-51.3) % MCV 86.9 (80-96) fL MCH 28.8 (27.7-33.6) pg MCHC 33.2 (32.2-35.4) g/dL RDW 14.9 (11.5-15.5) % Plt Count 302 (125-369) X10(3)uL MPV 7.4 (7.4-10.4) fL Neut % (Auto) 57.3 (46-82) % Lymph % (Auto) 21.8 (13-37) % [place] % (Auto) 14.5 H (4-12) % Eos % (Auto) 6 H (1.0-5.0) % Baso % (Auto) 0 (0-2) % Neut # (Auto) 3.8 (1.6-8.3) # Lymph # (Auto) 1.4 (0.6-5.0) # [place] # (Auto) 1.0 (0.0-1.3) # Eos # (Auto) 0.4 (0.0-0.8) # Baso # (Auto) 0.0 (0.0-0.2) # Sodium 140 (135-145) mmol/L Potassium 3.5 (3.5-5.3) mmol/L Chloride 107 D (100-110) mmol/L Carbon Dioxide 27 (23-29) mmol/L BUN 11 D (8-23) mg/dL Creatinine 0.7 (0.6-1.3) mg/dL Est Cr Clr Drug Dosing 52.40 mL/min Estimated GFR (MDRD) > 60 (>60) BUN/Creatinine Ratio 15.7 (9-20) Glucose 136 H (80-116) mg/dL Calcium 7.9 L (8.6-10.2) mg/dL Total Bilirubin 0.3 (0.1-1.3) mg/dL AST 13 D (5-27) IU/L ALT 14 (14-26) IU/L Alkaline Phosphatase 60 (56-112) IU/L C-Reactive Protein (0.0-1.0) mg/dL Total Protein 5.4 L (6.0-8.0) g/dL Albumin 2.7 L (3.2-4.6) g/dL Globulin 2.7 g/dL Albumin/Globulin Ratio 1.0 Urine Color Yellow (YELLOW) Urine Appearance Slightly cloudy (CLEAR) Urine pH 5.0 (5.0-6.5) Ur Specific [place] 1.020 (1.010-1.025) Urine Protein Negative (NEGATIVE) mg/dL Urine Glucose (UA) Normal (NEGATIVE) mg/dL Urine Ketones Negative (NEGATIVE) mg/dL Urine Occult Blood Negative (NEGATIVE) Urine Nitrite Negative (NEGATIVE) Urine Bilirubin Negative (NEGATIVE) Urine Urobilinogen Normal (NEGATIVE) mg/dL Ur Leukocyte Esterase Negative (NEGATIVE) Urine RBC 0-5 (0) Urine WBC 0-5 (0) Ur Squamous Epith Cells Moderate H (NS,R,O) Urine Bacteria Few H (NS) Urine Mucus Few H (NS) Vancomycin Trough (10-15) ug/mL 01/04/17 01/04/17 01/05/17 Range/Units 06:25 06:25 07:35 WBC 10.5 (4.5-12.0) X10-3/uL RBC 3.52 (3.23-5.20) x10(6)uL Hgb 10.4 L (11.5-15.5) g/dL Hct 31.1 (30.0-51.3) % MCV 88.2 (80-96) fL MCH 29.4 (27.7-33.6) pg MCHC 33.3 (32.2-35.4) g/dL RDW 14.6 (11.5-15.5) % Plt Count 334 (125-369) X10(3)uL MPV 7.7 (7.4-10.4) fL Neut % (Auto) 70.0 (46-82) % Lymph % (Auto) 13.4 (13-37) % [place] % (Auto) 11.6 (4-12) % Eos % (Auto) 5 (1.0-5.0) % Baso % (Auto) 1 (0-2) % Neut # (Auto) 7.3 (1.6-8.3) # Lymph # (Auto) 1.4 (0.6-5.0) # [place] # (Auto) 1.2 (0.0-1.3) # Eos # (Auto) 0.5 (0.0-0.8) # Baso # (Auto) 0.1 (0.0-0.2) # Sodium 140 (135-145) mmol/L Potassium 4.0 (3.5-5.3) mmol/L Chloride 104 (100-110) mmol/L Carbon Dioxide 27 (23-29) mmol/L BUN 9 (8-23) mg/dL Creatinine 0.8 (0.6-1.3) mg/dL Est Cr Clr Drug Dosing 45.85 mL/min Estimated GFR (MDRD) > 60 (>60) BUN/Creatinine Ratio 11.3 (9-20) Glucose 113 (80-116) mg/dL Calcium 8.4 L (8.6-10.2) mg/dL Total Bilirubin (0.1-1.3) mg/dL AST (5-27) IU/L ALT (14-26) IU/L Alkaline Phosphatase (56-112) IU/L C-Reactive Protein 6.1 H* (0.0-1.0) mg/dL Total Protein (6.0-8.0) g/dL Albumin (3.2-4.6) g/dL Globulin g/dL Albumin/Globulin Ratio Urine Color (YELLOW) Urine Appearance (CLEAR) Urine pH (5.0-6.5) Ur Specific [place] (1.010-1.025) Urine Protein (NEGATIVE) mg/dL Urine Glucose (UA) (NEGATIVE) mg/dL Urine Ketones (NEGATIVE) mg/dL Urine Occult Blood (NEGATIVE) Urine Nitrite (NEGATIVE) Urine Bilirubin (NEGATIVE) Urine Urobilinogen (NEGATIVE) mg/dL Ur Leukocyte Esterase (NEGATIVE) Urine RBC (0) Urine WBC (0) Ur Squamous Epith Cells (NS,R,O) Urine Bacteria (NS) Urine Mucus (NS) Vancomycin Trough 17.8 H (10-15) ug/mL 01/05/17 01/05/17 01/06/17 Range/Units 07:35 07:35 20:30 WBC 7.2 (4.5-12.0) X10-3/uL RBC 3.47 (3.23-5.20) x10(6)uL Hgb 10.3 L (11.5-15.5) g/dL Hct 30.3 (30.0-51.3) % MCV 87.5 (80-96) fL MCH 29.7 (27.7-33.6) pg MCHC 33.9 (32.2-35.4) g/dL RDW 15.3 (11.5-15.5) % Plt Count 358 (125-369) X10(3)uL MPV 7.5 (7.4-10.4) fL Neut % (Auto) 57.5 (46-82) % Lymph % (Auto) 21.5 (13-37) % [place] % (Auto) 14.1 H (4-12) % Eos % (Auto) 6 H (1.0-5.0) % Baso % (Auto) 1 (0-2) % Neut # (Auto) 4.2 (1.6-8.3) # Lymph # (Auto) 1.5 (0.6-5.0) # [place] # (Auto) 1.0 (0.0-1.3) # Eos # (Auto) 0.5 (0.0-0.8) # Baso # (Auto) 0.0 (0.0-0.2) # Sodium 141 (135-145) mmol/L Potassium 3.9 (3.5-5.3) mmol/L Chloride 107 (100-110) mmol/L Carbon Dioxide 27 (23-29) mmol/L BUN 10 (8-23) mg/dL Creatinine 0.7 (0.6-1.3) mg/dL Est Cr Clr Drug Dosing 52.40 mL/min Estimated GFR (MDRD) > 60 (>60) BUN/Creatinine Ratio 14.3 (9-20) Glucose 112 (80-116) mg/dL Calcium 8.6 (8.6-10.2) mg/dL Total Bilirubin (0.1-1.3) mg/dL AST (5-27) IU/L ALT (14-26) IU/L Alkaline Phosphatase (56-112) IU/L C-Reactive Protein (0.0-1.0) mg/dL Total Protein (6.0-8.0) g/dL Albumin (3.2-4.6) g/dL Globulin g/dL Albumin/Globulin Ratio Urine Color (YELLOW) Urine Appearance (CLEAR) Urine pH (5.0-6.5) Ur Specific [place] (1.010-1.025) Urine Protein (NEGATIVE) mg/dL Urine Glucose (UA) (NEGATIVE) mg/dL Urine Ketones (NEGATIVE) mg/dL Urine Occult Blood (NEGATIVE) Urine Nitrite (NEGATIVE) Urine Bilirubin (NEGATIVE) Urine Urobilinogen (NEGATIVE) mg/dL Ur Leukocyte Esterase (NEGATIVE) Urine RBC (0) Urine WBC (0) Ur Squamous Epith Cells (NS,R,O) Urine Bacteria (NS) Urine Mucus (NS) Vancomycin Trough 15.1 H (10-15) ug/mL 11/12/17 11/13/17 Range/Units 06:58 06:45 WBC (4.5-12.0) X10-3/uL RBC (3.23-5.20) x10(6)uL Hgb (11.5-15.5) g/dL Hct (30.0-51.3) % MCV (80-96) fL MCH (27.7-33.6) pg MCHC (32.2-35.4) g/dL RDW (11.5-15.5) % Plt Count (125-369) X10(3)uL MPV (7.4-10.4) fL Neut % (Auto) (46-82) % Lymph % (Auto) (13-37) % [place] % (Auto) (4-12) % Eos % (Auto) (1.0-5.0) % Baso % (Auto) (0-2) % Neut # (Auto) (1.6-8.3) # Lymph # (Auto) (0.6-5.0) # [place] # (Auto) (0.0-1.3) # Eos # (Auto) (0.0-0.8) # Baso # (Auto) (0.0-0.2) # Sodium 142 143 (135-145) mmol/L Potassium 3.9 4.4 (3.5-5.3) mmol/L Chloride 109 107 (100-110) mmol/L Carbon Dioxide 25 27 (23-29) mmol/L BUN 11 15 (8-23) mg/dL Creatinine 0.8 0.8 (0.6-1.3) mg/dL Est Cr Clr Drug Dosing 45.85 45.85 mL/min Estimated GFR (MDRD) > 60 > 60 (>60) BUN/Creatinine Ratio 13.8 18.8 (9-20) Glucose 97 95 (80-116) mg/dL Calcium 8.5 L 8.8 (8.6-10.2) mg/dL Total Bilirubin (0.1-1.3) mg/dL AST (5-27) IU/L ALT (14-26) IU/L Alkaline Phosphatase (56-112) IU/L C-Reactive Protein 3.1 H* (0.0-1.0) mg/dL Total Protein (6.0-8.0) g/dL Albumin (3.2-4.6) g/dL Globulin g/dL Albumin/Globulin Ratio Urine Color (YELLOW) Urine Appearance (CLEAR) Urine pH (5.0-6.5) Ur Specific [place] (1.010-1.025) Urine Protein (NEGATIVE) mg/dL Urine Glucose (UA) (NEGATIVE) mg/dL Urine Ketones (NEGATIVE) mg/dL Urine Occult Blood (NEGATIVE) Urine Nitrite (NEGATIVE) Urine Bilirubin (NEGATIVE) Urine Urobilinogen (NEGATIVE) mg/dL Ur Leukocyte Esterase (NEGATIVE) Urine RBC (0) Urine WBC (0) Ur Squamous Epith Cells (NS,R,O) Urine Bacteria (NS) Urine Mucus (NS) Vancomycin Trough (10-15) ug/mL JAVIER Results - Last 24 hrs: Microbiology 01/01/17 22:40 Blood - Venous Aerobic Blood Culture - Final NO GROWTH AFTER 5 DAYS 01/01/17 22:40 Blood - Venous Anaerobic Blood Culture - Final NO GROWTH AFTER 5 DAYS 01/03/17 17:40 Serous Fluid Gram Stain - Final 01/03/17 17:40 Serous Fluid Body Fluid Culture - Final (Mrsa) Staphylococcus Aureus Med Orders - Current: Current Medications Hydrocodone Bitart/Acetaminophen ([place] 325-5 Mg) 1 tab PO Q4H PRN PRN Reason: Pain Last Admin: 01/08/17 22:49 Dose: 1 tab Artificial Tears (Refresh Tears 0.5%) 0 ml EYEBOTH ASDIRECTED PRN PRN Reason: Dry Eyes Aspirin (Halfprin) 81 mg PO DAILY [facility] Last Admin: 01/09/17 09:14 Dose: 81 mg Atorvastatin Calcium (Lipitor) 40 mg PO DAILY [facility] Last Admin: 01/09/17 09:14 Dose: 40 mg Bupropion HCl (Wellbutrin Sr) 150 mg PO BID [facility] Last Admin: 01/09/17 09:16 Dose: 150 mg Cetirizine HCl (Zyrtec) 10 mg PO DAILY PRN PRN Reason: Allergies Escitalopram Oxalate (Lexapro) 20 mg PO DAILY [facility] Last Admin: 01/09/17 09:14 Dose: 20 mg Ferrous Sulfate (Ferrous Sulfate) 325 mg PO DAILY [facility] Last Admin: 01/09/17 09:12 Dose: 325 mg Hydroxyzine HCl (Atarax) 25 mg PO BEDTIME PRN PRN Reason: Insomnia Last Admin: 01/08/17 22:49 Dose: 25 mg Hydroxyzine HCl (Atarax) 25 mg PO QID PRN PRN Reason: Itching Magnesium Hydroxide (Milk Of Magnesia) 30 ml PO Q12H PRN PRN Reason: Constipation Metoprolol Succinate (Toprol Xl) 25 mg PO DAILY [facility] Last Admin: 01/09/17 09:15 Dose: 25 mg Nitroglycerin (Nitrostat) 0.4 mg SL Q5M PRN PRN Reason: Chest Pain Oxybutynin Chloride (Oxybutynin) 10 mg PO BID@0800,2100 [facility] Last Admin: 01/09/17 09:12 Dose: 10 mg Saccharomyces Boulardii (Florastor) 250 mg PO BID [facility] Last Admin: 01/09/17 09:16 Dose: 250 mg Sodium Chloride (Saline Flush) 10 ml FLUSH ASDIRECTED PRN PRN Reason: Keep Vein Open Last Admin: 01/08/17 09:10 Dose: 10 ml Trimethoprim/Sulfamethoxazole (Septra Ds) 1 tab PO BID [facility] Last Admin: 01/09/17 09:15 Dose: 1 tab Discontinued Medications Amoxicillin/Clavulanate Potassium (Augmentin 875 Mg/125 Mg) 1 tab PO Q12H [facility] Last Admin: 01/06/17 08:34 Dose: 1 tab Enoxaparin Sodium (Lovenox) 40 mg SUBCUT DAILY [facility] Last Admin: 01/09/17 09:15 Dose: 40 mg Hydroxyzine Pamoate (Vistaril) 25 mg PO BEDTIME PRN PRN Reason: Insomnia Piperacillin Sod/Tazobactam (Sod 3.375 gm/ Sodium Chloride) 50 mls @ 100 mls/ hr IV Q6H [facility] Last Admin: 01/03/17 06:37 Dose: Not Given Vancomycin HCl 1,500 mg/ (Sodium Chloride) 250 mls @ 166.667 mls/hr IV Q24H [facility] Last Admin: 01/03/17 06:37 Dose: Not Given Sodium Chloride (Normal Saline) 250 mls @ 0 mls/hr IV ASDIRECTED [facility] PRN Reason: KVO Last Admin: 01/01/17 23:54 Dose: 30 mls/hr Piperacillin Sod/Tazobactam (Sod 3.375 gm/ Sodium Chloride) 50 mls @ 100 mls/ hr IV Q6H [facility] Last Admin: 01/02/17 05:57 Dose: 100 mls/hr Vancomycin HCl 1,500 mg/ (Sodium Chloride) 250 mls @ 166.667 mls/hr IV Q24H [facility] Vancomycin HCl 1,500 mg/ (Sodium Chloride) 500 mls @ 333.333 mls/hr IV Q24H [facility] Vancomycin HCl 1,500 mg/ (Sodium Chloride) 500 mls @ 333.333 mls/hr IV Q24H [facility] Last Admin: 01/02/17 01:35 Dose: 333.333 mls/hr Vancomycin HCl 1,500 mg/ (Sodium Chloride) 500 mls @ 333.333 mls/hr IV Q12H [facility] Stop: 01/03/17 23:59 Last Admin: 01/03/17 19:12 Dose: 333.333 mls/hr Vancomycin HCl 1,000 mg/ (Sodium Chloride) 250 mls @ 167 mls/hr IV Q12H [facility] Vancomycin HCl 1,000 mg/Vancomycin HCl 500 mg/ Sodium Chloride 500 mls @ 250 mls/hr IV Q12H [facility] Last Admin: 01/04/17 20:21 Dose: 250 mls/hr Sodium Chloride (Normal Saline) 250 mls @ 30 mls/hr IV ASDIRECTED [facility] Last Admin: 01/07/17 08:55 Dose: 30 mls/hr Vancomycin HCl 1 gm/ Sodium (Chloride) 250 mls @ 167 mls/hr IV Q12H [facility] Last Admin: 01/07/17 08:54 Dose: 167 mls/hr Influenza Virus Vaccine (Pharmacy To Dose - Influenza Vaccine) 1 each IM ONETIME ONE Stop: 01/02/17 00:09 Influenza Virus Vaccine (Fluzone Quad [id number]) 60 mcg IM .ONCE ONE Stop: 01/02/17 10:01 Last Admin: 01/02/17 12:59 Dose: 60 mcg Ondansetron HCl (Zofran Odt) 4 mg PO Q6H PRN PRN Reason: nausea, able to take PO Oxybutynin Chloride (Oxybutynin) 10 mg PO BID [facility] Last Admin: 01/04/17 20:21 Dose: 10 mg Silver Sulfadiazine (Silvadene 1% Cream 400 Gm) 0 gm TOP BID [facility] Last Admin: 01/05/17 09:16 Dose: 1 applic Vancomycin HCl (Pharmacy To Dose - Vancomycin) 1 dose .XX ASDIRECTED [facility] Zolpidem Tartrate (Ambien) 10 mg PO ONETIME ONE Stop: 01/02/17 01:21 Last Admin: 01/02/17 02:04 Dose: 10 mg - Exam Physical Findings Comments:: General: Alert, Oriented, Cooperative HEENT: Mucous Membr. Moist/[place] Neck: Supple Lungs: Decreased Breath Sounds no onset of rales or rhonchi. using IS. No: Wheezing Cardiovascular: Regular Rate, Regular Rhythm GI/Abdominal Exam: Normal Bowel Sounds, Non-Tender; positive for BM. Extremities: no increased warmth, redness. area of erythema edge and edge of induration improving. tolerating acewraps and wound dressings. ) Skin: Warm, Rash (left forearm resolved). IV sites healthy. Wound/Incisions: Dressing Dry and Intact Neurological: Sensation Intact Psy/Mental Status: Anxiousness improved. *Q Meaningful Use (DIS) - VTE *Q VTE Criteria *Q: - Stroke *Q Stroke Criteria *Q: - AMI *Q AMI Criteria *Q:
--- NOTE | 2017-01-09 10:54 | PCM.SN ---
- Free Text/Narrative Note: dressing change performed. edema is markedly improved aquacel ag is adherent to the wounds excess was trimmed. would have the outer kerlix and mic wrap changed/rewrapped every other day. follow up in a week to see me.
[2017-01-09 12:32] VITALS: BP 132/70
== END 2017-01-09 14:10 | disposition home health service (06) | DRG 603 ==
LOC: FB.ED 22:07 → FB.MS 22:45
PROVIDERS: ADMIT Emergency Medicine; ATTEND Family Medicine
DX: L03.116 Cellulitis of left lower limb (principal); L97.819 Non-pressure chronic ulcer of other part of right lower leg with unspecified severity; L97.829 Non-pressure chronic ulcer of other part of left lower leg with unspecified severity; Z68.41 Body mass index [BMI] 40.0-44.9, adult; M79.89 Other specified soft tissue disorders; M79.605 Pain in left leg; M79.604 Pain in right leg; L03.115 Cellulitis of right lower limb; B95.62 Methicillin resistant Staphylococcus aureus infection as the cause of diseases classified elsewhere; I83.018 Varicose veins of right lower extremity with ulcer other part of lower leg; I83.028 Varicose veins of left lower extremity with ulcer other part of lower leg; E66.9 Obesity, unspecified; Z23 Encounter for immunization; I25.10 Atherosclerotic heart disease of native coronary artery without angina pectoris; I25.2 Old myocardial infarction; Z87.440 Personal history of urinary (tract) infections; M19.90 Unspecified osteoarthritis, unspecified site; F32.9 Major depressive disorder, single episode, unspecified; H54.7 Unspecified visual loss; N39.41 Urge incontinence; D50.9 Iron deficiency anemia, unspecified; G47.00 Insomnia, unspecified; L29.9 Pruritus, unspecified; K21.9 Gastro-esophageal reflux disease without esophagitis; I10 Essential (primary) hypertension; I89.0 Lymphedema, not elsewhere classified; Z87.891 Personal history of nicotine dependence; Z79.82 Long term (current) use of aspirin; Z88.1 Allergy status to other antibiotic agents; Z85.828 Personal history of other malignant neoplasm of skin; Z96.653 Presence of artificial knee joint, bilateral
CPT/HCPCS: 36415; 80048; 80053; 80202; 81001; 85025; 85027; 86140; 87040; 87070; 87077; 87186; 87205; 90686; 97161-GP; 99283; 99284; A9270-GY; G0008; J1650; J2543; J3370; J7040; J7050

== ENCOUNTER 2017-02-13 17:09 | Inpatient (IN) | payer MEDICARE, OTHER ==
[2017-02-13] MEDS ORDERED: Docusate Sodium 100 MG Cap PO PRN (18:56)
[2017-02-13] MEDS ORDERED: Enoxaparin 30 MG/0.3 ML Syringe SUBCUT SCH (19:00)
[2017-02-13] MEDS ORDERED: hydrOXYzine HCl 25 MG Tab PO PRN (19:02)
[2017-02-13] MEDS ORDERED: Sodium Chloride 0.9% 250 ML IV SCH (19:15)
[2017-02-13] MEDS ORDERED: cefTRIAXone 2 GM in Sodium Chloride 0.9% 100 ML IV SCH (19:30)
[2017-02-13] MEDS: Azithromycin 500 MG in Sodium Chloride 0.9% 250 ML IV SCH (20:56)
[2017-02-13] MEDS: atorvaSTATin 40 MG Tab PO SCH (21:25)
[2017-02-13] MEDS: Metoprolol Succinate 25 MG Tab.ER PO SCH (21:27)
[2017-02-13] MEDS: Aspirin 81 MG Tab.EC PO SCH (21:30)
[2017-02-13] MEDS: Escitalopram 10 MG Tab ONE (21:31)
[2017-02-13] MEDS: Escitalopram 20 MG Tab PO SCH (21:31)
[2017-02-13] MEDS: buPROPion 150 MG Tab.SR PO SCH (21:32)
[2017-02-13] MEDS: Oxybutynin 5 MG Tab PO SCH (21:56)
[2017-02-13] MEDS: Codeine/guaiFENesin 100-10 MG/5 ML Syrup 5 ML Cup PO PRN (21:56)
[2017-02-13] MEDS ORDERED: Acetaminophen 325 MG Tab PO PRN (22:03)
[2017-02-13] MEDS: Acetaminophen 325 MG Tab PO PRN (22:08)
[2017-02-13] MEDS ORDERED: Enoxaparin 30 MG/0.3 ML Syringe SUBCUT ONE (22:15)
[2017-02-13] MEDS: Sodium Chloride 0.9% 10 ML Syringe FLUSH PRN (22:41)
[2017-02-14] MEDS: Albuterol/Ipratropium 3.0-0.5 MG/3 ML Neb Soln NEB PRN ×3 (01:20→21:18)
[2017-02-14] MEDS: Codeine/guaiFENesin 100-10 MG/5 ML Syrup 5 ML Cup PO PRN ×2 (08:27→19:27)
[2017-02-14] MEDS ORDERED: Escitalopram 20 MG Tab PO SCH (09:00)
[2017-02-14] MEDS ORDERED: Aspirin 81 MG Tab.EC PO SCH (09:00)
[2017-02-14] MEDS ORDERED: Metoprolol Succinate 25 MG Tab.ER PO SCH (09:00)
[2017-02-14] MEDS: Metoprolol Succinate 25 MG Tab.ER PO SCH (09:43)
[2017-02-14] MEDS: buPROPion 150 MG Tab.SR PO SCH ×2 (09:43→20:14)
[2017-02-14] MEDS: Aspirin 81 MG Tab.EC PO SCH (09:43)
[2017-02-14] MEDS: Escitalopram 20 MG Tab PO SCH (09:44)
[2017-02-14] MEDS: Oxybutynin 5 MG Tab PO SCH ×2 (09:44→20:14)
--- NOTE | 2017-02-14 11:58 | HP ---
ADMISSION DATE: 02/13/2017 REASON FOR VISIT: Complicated cough, respiratory difficulty, hypoxia, and pneumonia. HISTORY OF PRESENT ILLNESS: Chel Ann is a 76-year-old female from [place], who was seen by Azalia Samayoa PA-C, at [facility], with a 2- week history of increasing respiratory difficulty, complicated cough, low-grade fever, dyspnea with exertion, moderate sputum, and a sense of reduced well- being. Diagnostic studies revealed a bibasilar pneumonia with a large left- sided hiatal hernia, indicating need for hospitalization. MEDICATIONS: Present daily medications include; 1. Ditropan 5 mg, 2 b.i.d. for bladder control. 2. Lexapro 20 mg one p.o. daily for mood stability. 3. P.r.n. nitroglycerin. 4. Metoprolol-XL 25 mg one p.o. daily for heart. 5. Atorvastatin 40 mg one p.o. daily for heart/hyperlipidemia. 6. Zyrtec 10 mg one daily p.r.n. allergies. 7. Neurontin 300 mg one p.o. t.i.d. for neuropathic pain. 8. Wellbutrin SR 150 mg two tabs daily. 9. Hydroxyzine 25 mg t.i.d. p.r.n. itching. 10.Ferrous sulfate 325 mg one p.o. daily for anemia. 11.Refresh drops. 12.Aspirin. ALLERGIES: Allergic to Terramycin. PAST SURGICAL HISTORY: Significant for bilateral cataract surgery, hysterectomy with one ovary removal, and bilateral total knee arthroplasty. PAST MEDICAL HISTORY: Chronic illnesses include mood disorder, coronary artery disease, hyperlipidemia, glaucoma, and depression. No other operative procedures, hospitalizations, unusual childhood diseases, major injuries, or fractures. SOCIAL HISTORY: Lives in [place], family are her caregivers. Long-term smoker, remotely. Nil alcohol consumption. No illicit drug use. FAMILY HISTORY: Negative for early heart disease, diabetes mellitus, or inheritable cancers. REVIEW OF SYSTEMS: CONSTITUTIONAL: Feeling poorly. Short of breath. EYES: Sees well by report. EARS: Hears well. OROPHARYNX: Intact dentition. CARDIOVASCULAR: Denies chest pain. RESPIRATORY: Please see HPI. GI: Regular predictable stools. No blood in the stools. : Good voiding pattern. SKIN: No open sores or lesions. ENDOCRINE: No excessive thirst or urination. ALLERGY: No chronic cough, wheeze, or congestion. PSYCHIATRIC: Mood stable. PHYSICAL EXAMINATION: VITAL SIGNS: Stable. Weight is 102.058 kg. Temperature 37 degrees Fahrenheit, pulse 61, blood pressure 105/54, and O2 saturations 94% on 2 L. GENERAL: Appears uncomfortable. HEENT: Funduscopic benign. Conjunctivae clear. Bright tympanic membranes. Clear nasal discharge. Mouth and oropharynx clear. Tongue midline. Good gag reflex. NECK: Benign. CHEST: Decreased breath sounds, right lower lobe distribution. HEART: Regular without ectopy or murmur. BREASTS: Symmetric, pendulous without masses. ABDOMEN: Benign. Lower abdominal surgical scar well healed. PELVIC AND RECTAL: Exams deferred. EXTREMITIES: Well perfused. Reflex symmetric. Sensation intact. LABORATORY STUDIES: White count 3,800 and hemoglobin 11.5. Electrolytes satisfactory. Blood cultures x2 obtained. Sputum to be obtained. ASSESSMENT: Bilateral pneumonia, underlying lung disease. PLAN: Admission to hospital is indicated, complementary care and well-being. Two-drug antibiotic therapy, appropriate diagnostic studies, intervention and care as appropriate. /[id number] MIGUEL/DIONTE
--- NOTE | 2017-02-14 16:05 | PN ---
DATE SEEN: 02/14/2017 SUBJECTIVE: Chel Ann is a 76-year-old female admitted with complicated pneumonia. Clinically improved. Less short of breath, less cough, fever has abated. Tolerating IV Rocephin and azithromycin. LABORATORY STUDIES: Upon review; CBC, unremarkable. Electrolytes, satisfactory. OBJECTIVE: VITAL SIGNS: 37.0, 116/44, pulse of 62, 20, 90% on room air. GENERAL: Appears comfortable. No obvious shortness of breath. NECK: Benign. Thyroid small. CHEST: Decreased breath sounds, right lower lobe. HEART: Regular without ectopy or murmur. ABDOMEN: Benign. ASSESSMENT: Bilateral pneumonia. PLAN: Medications, care and treatment appropriate, expectations accordingly. /[id number] MIGUEL/DIONTE
[2017-02-14] MEDS: cefTRIAXone 2 GM Vial IV SCH (18:58)
[2017-02-14] MEDS: Sodium Chloride 0.9% 10 ML Syringe FLUSH PRN (19:12)
[2017-02-14] MEDS: Acetaminophen 325 MG Tab PO PRN (19:28)
[2017-02-14] MEDS: Azithromycin 500 MG in Sodium Chloride 0.9% 250 ML IV SCH (19:35)
[2017-02-14] MEDS: Enoxaparin 40 MG/0.4 ML Syringe SUBCUT SCH (20:13)
[2017-02-14] MEDS: atorvaSTATin 40 MG Tab PO SCH (20:13)
[2017-02-15] MEDS: Acetaminophen 325 MG Tab PO PRN (04:34)
[2017-02-15] MEDS: Codeine/guaiFENesin 100-10 MG/5 ML Syrup 5 ML Cup PO PRN ×2 (04:35→14:38)
[2017-02-15] MEDS: Metoprolol Succinate 25 MG Tab.ER PO SCH (09:23)
[2017-02-15] MEDS: Escitalopram 20 MG Tab PO SCH (09:23)
[2017-02-15] MEDS: Aspirin 81 MG Tab.EC PO SCH (09:23)
[2017-02-15] MEDS: Oxybutynin 5 MG Tab PO SCH ×2 (09:23→20:15)
[2017-02-15] MEDS: buPROPion 150 MG Tab.SR PO SCH ×2 (09:24→20:15)
[2017-02-15] MEDS: Albuterol/Ipratropium 3.0-0.5 MG/3 ML Neb Soln NEB PRN ×3 (09:46→21:09)
--- NOTE | 2017-02-15 10:59 | PN ---
DATE SEEN: 02/15/2017 SUBJECTIVE: Chel Ann is a 76-year-old female, admitted with complicated pneumonia. Appears to be better. Sputum showing gram-positive cocci. Identification to follow. Blood cultures are negative. Chest x-ray will be performed today. OBJECTIVE: VITAL SIGNS: 36.6, 52, 118/57, and 91% on room air. GENERAL: Appears more comfortable. Speech was more comfortable. NECK: Benign. THYROID: Small. CHEST: Decreased breath sounds at both bases. HEART: Regular without ectopy or murmur. ABDOMEN: Benign. ASSESSMENT: Bibasilar pneumonia. PLAN: X-rays will be performed. Continue antibiotics, complementary care, and well being. Await culture. /[id number] MIGUEL/DIONTE
[2017-02-15] MEDS: cefTRIAXone 2 GM Vial IV SCH (18:32)
[2017-02-15] MEDS: Azithromycin 500 MG in Sodium Chloride 0.9% 250 ML IV SCH (20:12)
[2017-02-15] MEDS: atorvaSTATin 40 MG Tab PO SCH (20:15)
[2017-02-15] MEDS: Enoxaparin 40 MG/0.4 ML Syringe SUBCUT SCH (20:15)
[2017-02-15] MEDS ORDERED: Levofloxacin/Dextrose 5%-Water 750 MG in Premix Bag 1 BAG IV ONE (21:28)
[2017-02-16] MEDS: Codeine/guaiFENesin 100-10 MG/5 ML Syrup 5 ML Cup PO PRN ×3 (02:31→19:30)
[2017-02-16] MEDS: Albuterol/Ipratropium 3.0-0.5 MG/3 ML Neb Soln NEB PRN ×3 (07:11→19:31)
--- NOTE | 2017-02-16 08:05 | CR ---
INDICATION: Followup pneumonia. CHEST: PA and lateral views of the chest 02/15/2017 were compared with 2016, revealing a large fixed hiatal hernia. Posterior to the hernia, there appears to be some infiltration, which could be on the basis of residual pneumonia, possibly at the left lung base, in the lower lobe, and possibly in the lingula additionally. The heart appeared enlarged. The aorta is tortuous. Diminished bone density may be present, suggesting osteoporosis - correlate clinically. Findings remain compatible with COPD and may be somewhat exacerbated, compared with the previous study. Upper lung field pulmonary vasculature also appears somewhat prominent, which may be on the basis of COPD or possibly a mild degree of CHF. Interstitial markings are slightly heavy and may be fibrotic in nature or due to interstitial lung edema. IMPRESSION: 1. ASHD, cardiomegaly, possible mild or early CHF with mild interstitial lung edema. 2. Large fixed hiatal hernia. 3. Left basilar infiltrate suggesting persistent or recurrent pneumonia. 4. COPD, possibly with exacerbation or progression. 5. Osteoporosis. MTDD
[2017-02-16] MEDS: Escitalopram 20 MG Tab PO SCH (08:44)
[2017-02-16] MEDS: buPROPion 150 MG Tab.SR PO SCH ×2 (08:44→21:11)
[2017-02-16] MEDS: Metoprolol Succinate 25 MG Tab.ER PO SCH (08:44)
[2017-02-16] MEDS: Aspirin 81 MG Tab.EC PO SCH (08:44)
[2017-02-16] MEDS: Oxybutynin 5 MG Tab PO SCH ×2 (08:44→21:11)
--- NOTE | 2017-02-16 09:03 | PCM.PN ---
- General Info Date of Service: 02/16/17 Subjective Update: Patient still feels also like to stay at least one more day because of the cough sore throat and pleuritic chest pain. She has had no fever chills. She complains that her appetite is low and also blames the cardiac diet. Functional Status: Reports: Pain Controlled, Tolerating Diet - Review of Systems General: Reports: No Symptoms HEENT: Reports: No Symptoms Pulmonary: Reports: Pleuritic Chest Pain, Cough - Patient Data Vitals - Most Recent: Last Vital Signs Temp 98.4 F 02/16/17 07:52 Pulse 63 02/16/17 08:44 Resp 20 02/16/17 07:52 BP 159/74 H 02/16/17 08:44 Pulse Ox 91 L 02/16/17 07:52 Weight - Most Recent: 101.922 kg I&O - Last 24 Hours: Intake & Output 02/15/17 02/16/17 02/16/17 22:59 06:59 14:59 Intake Total 500 Output Total 100 400 Balance 400 -400 Timo Results Last 24 Hours: Microbiology 02/13/17 21:45 Gram Stain - Final Sputum - Expectorated Sputum Culture - Final (Mrsa) Staphylococcus Aureus 02/13/17 19:10 Aerobic Blood Culture - Preliminary Blood - Venous - Lab Draw NO GROWTH AFTER 2 DAYS Anaerobic Blood Culture - Preliminary NO GROWTH AFTER 2 DAYS 02/13/17 19:10 Aerobic Blood Culture - Preliminary Blood - Venous NO GROWTH AFTER 2 DAYS Anaerobic Blood Culture - Preliminary NO GROWTH AFTER 2 DAYS Med Orders - Current: Current Medications Acetaminophen (Tylenol) 650 mg PO Q4H PRN PRN Reason: Pain Last Admin: 02/15/17 04:34 Dose: 650 mg Albuterol/Ipratropium (Duoneb 3.0-0.5 Mg/3 Ml) 3 ml NEB QIDRT PRN PRN Reason: Dyspnea Last Admin: 02/16/17 07:11 Dose: 3 ml Aspirin (Halfprin) 81 mg PO DAILY [facility] Last Admin: 02/16/17 08:44 Dose: 81 mg Atorvastatin Calcium (Lipitor) 40 mg PO BEDTIME [facility] Last Admin: 02/15/17 20:15 Dose: 40 mg Bupropion HCl (Wellbutrin Sr) 150 mg PO BID [facility] Last Admin: 02/16/17 08:44 Dose: 150 mg Ceftriaxone Sodium (Rocephin) 2 gm IV Q24H [facility] Last Admin: 02/15/17 18:32 Dose: 2 gm Docusate Sodium (Colace) 100 mg PO BID PRN PRN Reason: Constipation Enoxaparin Sodium (Lovenox) 40 mg SUBCUT Q24H [facility] Last Admin: 02/15/17 20:15 Dose: 40 mg Escitalopram Oxalate (Lexapro) 20 mg PO DAILY [facility] Last Admin: 02/16/17 08:44 Dose: 20 mg Guaifenesin/Codeine Phosphate (Robitussin Ac) 10 ml PO Q6H PRN PRN Reason: Cough Last Admin: 02/16/17 08:49 Dose: 10 ml Hydroxyzine HCl (Atarax) 25 mg PO QID PRN PRN Reason: Itching Azithromycin 500 mg/ Sodium (Chloride) 250 mls @ 250 mls/hr IV Q24H [facility] Last Admin: 02/15/17 20:12 Dose: 250 mls/hr Sodium Chloride (Normal Saline) 250 mls @ 100 mls/hr IV ASDIRECTED [facility] Metoprolol Succinate (Toprol Xl) 25 mg PO DAILY [facility] Last Admin: 02/16/17 08:44 Dose: 25 mg Oxybutynin Chloride (Oxybutynin) 10 mg PO BID [facility] Last Admin: 02/16/17 08:44 Dose: 10 mg Sodium Chloride (Saline Flush) 10 ml FLUSH ASDIRECTED PRN PRN Reason: Keep Vein Open Last Admin: 02/14/17 19:12 Dose: 10 ml Discontinued Medications Acetaminophen (Tylenol) 650 mg PO Q4H PRN PRN Reason: Pain Aspirin (Halfprin) 81 mg PO DAILY [facility] Enoxaparin Sodium (Lovenox) 30 mg SUBCUT Q24H [facility] Enoxaparin Sodium (Lovenox) 30 mg SUBCUT ONETIME ONE Stop: 02/13/17 22:16 Last Admin: 02/13/17 22:22 Dose: 30 mg Escitalopram Oxalate (Lexapro) 20 mg PO DAILY [facility] Escitalopram Oxalate (Lexapro) Confirm Administered Dose 20 mg .ROUTE .STK-MED ONE Stop: 02/13/17 21:12 Last Admin: 02/13/17 21:31 Dose: Not Given Ceftriaxone Sodium 2 gm/ (Sodium Chloride) 100 mls @ 200 mls/hr IV Q24H [facility] Last Admin: 02/13/17 19:40 Dose: 200 mls/hr Levofloxacin/Dextrose 750 mg/ (Premix) 150 mls @ 100 mls/hr IV ONETIME ONE Stop: 02/15/17 22:57 Last Admin: 02/15/17 21:56 Dose: 100 mls/hr Metoprolol Succinate (Toprol Xl) 25 mg PO DAILY [facility] - Exam General: Alert, Oriented HEENT: Pupils Equal, Pupils Reactive, EOMI, Mucous Membr. Moist/[place] Neck: Supple Lungs: Clear to Auscultation, Normal Respiratory Effort Cardiovascular: Regular Rate, Regular Rhythm - Problem List & Annotations (1) CAP (community acquired pneumonia) SNOMED Code(s): 366242945 Code(s): J18.9 - PNEUMONIA, UNSPECIFIED ORGANISM Status: Acute Current Visit: Yes Qualifiers: Laterality: left Lung location: unspecified part of lung Qualified Code(s ): J18.9 - Pneumonia, unspecified organism (2) COPD (chronic obstructive pulmonary disease) SNOMED Code(s): 76356679 Code(s): J44.9 - CHRONIC OBSTRUCTIVE PULMONARY DISEASE, UNSPECIFIED Status : Acute Current Visit: Yes Qualifiers: COPD type: chronic bronchitis (3) MRSA (methicillin resistant staph aureus) culture positive SNOMED Code(s): 370441273 Code(s): Z22.322 - CARRIER OR SUSPECTED CARRIER OF METHICILLIN RESIS STAPH Status: Acute Priority: High Current Visit: No (4) CAD (coronary artery disease) SNOMED Code(s): 87057546 Code(s): I25.10 - ATHSCL HEART DISEASE OF [place] CORONARY ARTERY W/O ANG PCTRS Status: Chronic Current Visit: No Annotation/Comment:: Continue outpatient meds. (5) Depression SNOMED Code(s): 55778505 Code(s): F32.9 - MAJOR DEPRESSIVE DISORDER, SINGLE EPISODE, UNSPECIFIED Status: Chronic Current Visit: No (6) Lymphedema SNOMED Code(s): 042565507 Code(s): I89.0 - LYMPHEDEMA, NOT ELSEWHERE CLASSIFIED Status: Chronic Current Visit: No Annotation/Comment:: continue mic wraps as recommended. (7) Obesity SNOMED Code(s): 899120933 Code(s): E66.9 - OBESITY, UNSPECIFIED Status: Chronic Current Visit: No - Problem List Review Problem List Initiated/Reviewed/Updated: Yes - My Orders Last 24 Hours: My Active Orders 02/16/17 Lunch Regular Diet [DIET] 02/17/17 05:11 CBC WITH AUTO DIFF [HEME] AM COMPREHENSIVE METABOLIC PN,CMP [CHEM] AM - Plan Plan:: I sputum grew MRSA. It is sensitive to fluoroquinolones. We'll continue at 750 mg of IV Levaquin daily. I believe should be ready to go home either tomorrow or Sunday. I will change her diet to regular diet & encourage ambulation, incentive spirometry.
[2017-02-16] MEDS: Sodium Chloride 0.9% 10 ML Syringe FLUSH PRN (19:24)
[2017-02-16] MEDS ORDERED: Levofloxacin/Dextrose 5%-Water 750 MG in Premix Bag 1 BAG IV SCH (20:00)
[2017-02-16] MEDS: Enoxaparin 40 MG/0.4 ML Syringe SUBCUT SCH (21:09)
[2017-02-16] MEDS: atorvaSTATin 40 MG Tab PO SCH (21:11)
[2017-02-17] MEDS: Codeine/guaiFENesin 100-10 MG/5 ML Syrup 5 ML Cup PO PRN ×3 (01:34→23:48)
[2017-02-17] MEDS: Acetaminophen 325 MG Tab PO PRN ×2 (04:59→15:55)
[2017-02-17] MEDS: Albuterol/Ipratropium 3.0-0.5 MG/3 ML Neb Soln NEB PRN ×2 (08:01→15:58)
[2017-02-17] MEDS: buPROPion 150 MG Tab.SR PO SCH ×2 (08:53→20:15)
[2017-02-17] MEDS: Aspirin 81 MG Tab.EC PO SCH (08:53)
[2017-02-17] MEDS: Oxybutynin 5 MG Tab PO SCH ×2 (08:53→20:15)
[2017-02-17] MEDS: Metoprolol Succinate 25 MG Tab.ER PO SCH (08:54)
[2017-02-17] MEDS: Escitalopram 20 MG Tab PO SCH (08:54)
--- NOTE | 2017-02-17 09:15 | PCM.PN ---
- General Info Date of Service: 02/17/17 Subjective Update: Patient complains mainly of cough productive associated wheezing mostly at night. Functional Status: Reports: Pain Controlled, Tolerating Diet, Ambulating, Incentive Spirometry - Review of Systems General: Reports: No Symptoms Pulmonary: Reports: Shortness of Breath, Pleuritic Chest Pain, Cough, Sputum, Wheezing - Patient Data Vitals - Most Recent: Last Vital Signs Temp 97.8 F 02/17/17 07:55 Pulse 75 02/17/17 08:54 Resp 18 02/17/17 07:55 BP 157/74 H 02/17/17 08:54 Pulse Ox 93 L 02/17/17 08:18 Weight - Most Recent: 101.514 kg I&O - Last 24 Hours: Intake & Output 02/16/17 02/17/17 02/17/17 22:59 06:59 14:59 Intake Total 1180 400 Output Total 950 350 Balance 230 50 Lab Results Last 24 Hours: Laboratory Results - last 24 hr 02/17/17 02/17/17 Range/Units 06:25 06:25 WBC 4.2 L (4.5-12.0) X10-3/uL RBC 3.79 (3.23-5.20) x10(6)uL Hgb 10.5 L (11.5-15.5) g/dL Hct 33.4 (30.0-51.3) % MCV 88.3 (80-96) fL MCH 27.8 (27.7-33.6) pg MCHC 31.5 L (32.2-35.4) g/dL RDW 14.6 (11.5-15.5) % Plt Count 251 (125-369) X10(3)uL MPV 7.6 (7.4-10.4) fL Add Manual Diff Yes Neutrophils % (Manual) 56 (46-82) % Band Neutrophils % 1 (0-6) % Lymphocytes % (Manual) 27 (13-37) % Monocytes % (Manual) 14 H (4-12) % Eosinophils % (Manual) 2 (0-5) % Sodium 144 (135-145) mmol/L Potassium 2.9 L (3.5-5.3) mmol/L Chloride 104 (100-110) mmol/L Carbon Dioxide 32 (21-32) mmol/L BUN 10 (7-18) mg/dL Creatinine 0.7 (0.55-1.02) mg/dL Est Cr Clr Drug Dosing 49.88 mL/min Estimated GFR (MDRD) > 60 (>60) BUN/Creatinine Ratio 14.3 (9-20) Glucose 101 (80-116) mg/dL Calcium 8.6 (8.6-10.2) mg/dL Total Bilirubin 0.3 (0.1-1.3) mg/dL AST 13 D (5-25) IU/L ALT 17 D (12-36) U/L Alkaline Phosphatase 68 (56-112) IU/L Total Protein 6.3 (6.0-8.0) g/dL Albumin 2.7 L (3.2-4.6) g/dL Globulin 3.6 g/dL Albumin/Globulin Ratio 0.8 Timo Results Last 24 Hours: Microbiology 02/13/17 19:10 Aerobic Blood Culture - Preliminary Blood - Venous - Lab Draw NO GROWTH AFTER 3 DAYS Anaerobic Blood Culture - Preliminary NO GROWTH AFTER 3 DAYS 02/13/17 19:10 Aerobic Blood Culture - Preliminary Blood - Venous NO GROWTH AFTER 3 DAYS Anaerobic Blood Culture - Preliminary NO GROWTH AFTER 3 DAYS Med Orders - Current: Current Medications Acetaminophen (Tylenol) 650 mg PO Q4H PRN PRN Reason: Pain Last Admin: 02/17/17 04:59 Dose: 650 mg Albuterol/Ipratropium (Duoneb 3.0-0.5 Mg/3 Ml) 3 ml NEB QIDRT PRN PRN Reason: Dyspnea Last Admin: 02/17/17 08:01 Dose: 3 ml Aspirin (Halfprin) 81 mg PO DAILY [facility] Last Admin: 02/17/17 08:53 Dose: 81 mg Atorvastatin Calcium (Lipitor) 40 mg PO BEDTIME [facility] Last Admin: 02/16/17 21:11 Dose: 40 mg Benzonatate (Tessalon Perles) 200 mg PO TID [facility] Bupropion HCl (Wellbutrin Sr) 150 mg PO BID [facility] Last Admin: 02/17/17 08:53 Dose: 150 mg Docusate Sodium (Colace) 100 mg PO BID PRN PRN Reason: Constipation Enoxaparin Sodium (Lovenox) 40 mg SUBCUT Q24H [facility] Last Admin: 02/16/17 21:09 Dose: 40 mg Escitalopram Oxalate (Lexapro) 20 mg PO DAILY [facility] Last Admin: 02/17/17 08:54 Dose: 20 mg Guaifenesin/Codeine Phosphate (Robitussin Ac) 10 ml PO Q6H PRN PRN Reason: Cough Last Admin: 02/17/17 01:34 Dose: 10 ml Hydroxyzine HCl (Atarax) 25 mg PO QID PRN PRN Reason: Itching Sodium Chloride (Normal Saline) 250 mls @ 100 mls/hr IV ASDIRECTED [facility] Levofloxacin (Levaquin) 750 mg PO Q24H [facility] Metoprolol Succinate (Toprol Xl) 25 mg PO DAILY [facility] Last Admin: 02/17/17 08:54 Dose: 25 mg Oxybutynin Chloride (Oxybutynin) 10 mg PO BID [facility] Last Admin: 02/17/17 08:53 Dose: 10 mg Potassium Chloride (Klor-Con M20) 20 meq PO BID [facility] Prednisone (Prednisone) 20 mg PO BID [facility] Sodium Chloride (Saline Flush) 10 ml FLUSH ASDIRECTED PRN PRN Reason: Keep Vein Open Last Admin: 02/16/17 19:24 Dose: 10 ml Discontinued Medications Acetaminophen (Tylenol) 650 mg PO Q4H PRN PRN Reason: Pain Aspirin (Halfprin) 81 mg PO DAILY [facility] Ceftriaxone Sodium (Rocephin) 2 gm IV Q24H [facility] Last Admin: 02/15/17 18:32 Dose: 2 gm Enoxaparin Sodium (Lovenox) 30 mg SUBCUT Q24H [facility] Enoxaparin Sodium (Lovenox) 30 mg SUBCUT ONETIME ONE Stop: 02/13/17 22:16 Last Admin: 02/13/17 22:22 Dose: 30 mg Escitalopram Oxalate (Lexapro) 20 mg PO DAILY [facility] Escitalopram Oxalate (Lexapro) Confirm Administered Dose 20 mg .ROUTE .STK-MED ONE Stop: 02/13/17 21:12 Last Admin: 02/13/17 21:31 Dose: Not Given Azithromycin 500 mg/ Sodium (Chloride) 250 mls @ 250 mls/hr IV Q24H [facility] Last Admin: 02/15/17 20:12 Dose: 250 mls/hr Ceftriaxone Sodium 2 gm/ (Sodium Chloride) 100 mls @ 200 mls/hr IV Q24H [facility] Last Admin: 02/13/17 19:40 Dose: 200 mls/hr Levofloxacin/Dextrose 750 mg/ (Premix) 150 mls @ 100 mls/hr IV ONETIME ONE Stop: 02/15/17 22:57 Last Admin: 02/15/17 21:56 Dose: 100 mls/hr Levofloxacin/Dextrose 750 mg/ (Premix) 150 mls @ 100 mls/hr IV Q24H [facility] Last Admin: 02/16/17 19:24 Dose: 100 mls/hr Metoprolol Succinate (Toprol Xl) 25 mg PO DAILY [facility] - Exam Quality Assessment: No: Supplemental Oxygen General: Alert, Oriented HEENT: Pupils Equal, Pupils Reactive, EOMI, Mucous Membr. Moist/[place] Neck: Supple Lungs: Decreased Breath Sounds, Rhonchi Cardiovascular: Regular Rate, Regular Rhythm - Problem List & Annotations (1) CAP (community acquired pneumonia) SNOMED Code(s): 501127289 Code(s): J18.9 - PNEUMONIA, UNSPECIFIED ORGANISM Status: Acute Current Visit: Yes Qualifiers: Laterality: left Lung location: unspecified part of lung Qualified Code(s ): J18.9 - Pneumonia, unspecified organism (2) COPD (chronic obstructive pulmonary disease) SNOMED Code(s): 09473783 Code(s): J44.9 - CHRONIC OBSTRUCTIVE PULMONARY DISEASE, UNSPECIFIED Status : Acute Current Visit: Yes Qualifiers: COPD type: chronic bronchitis (3) MRSA (methicillin resistant staph aureus) culture positive SNOMED Code(s): 299658699 Code(s): Z22.322 - CARRIER OR SUSPECTED CARRIER OF METHICILLIN RESIS STAPH Status: Acute Priority: High Current Visit: No (4) CAD (coronary artery disease) SNOMED Code(s): 15054675 Code(s): I25.10 - ATHSCL HEART DISEASE OF [place] CORONARY ARTERY W/O ANG PCTRS Status: Chronic Current Visit: No Annotation/Comment:: Continue outpatient meds. (5) Depression SNOMED Code(s): 42562390 Code(s): F32.9 - MAJOR DEPRESSIVE DISORDER, SINGLE EPISODE, UNSPECIFIED Status: Chronic Current Visit: No (6) Lymphedema SNOMED Code(s): 091229895 Code(s): I89.0 - LYMPHEDEMA, NOT ELSEWHERE CLASSIFIED Status: Chronic Current Visit: No Annotation/Comment:: continue mic wraps as recommended. (7) Obesity SNOMED Code(s): 780925334 Code(s): E66.9 - OBESITY, UNSPECIFIED Status: Chronic Current Visit: No (8) Hypokalemia SNOMED Code(s): 83569785 Code(s): E87.6 - HYPOKALEMIA Status: Acute Current Visit: Yes - Problem List Review Problem List Initiated/Reviewed/Updated: Yes - My Orders Last 24 Hours: My Active Orders 02/16/17 Lunch Regular Diet [DIET] 02/17/17 09:15 Potassium Chloride [Klor-Con M20] 20 meq PO BID predniSONE 20 mg PO BID 02/17/17 14:00 Benzonatate [Tessalon Perles] 200 mg PO TID 02/17/17 20:00 Levofloxacin [Levaquin] 750 mg PO Q24H 02/18/17 05:11 BASIC METABOLIC PANEL,BMP [CHEM] AM - Plan Plan:: We'll switch medications to oral. I will also start the Tessalon Perles and the prednisone to help the cough and wheezing. I will replace potassium. Repeat in the morning. Hopefully she will be able to go tomorrow with oral antibiotics and prednisone.
[2017-02-17] MEDS: Potassium Chloride 20 MEQ Tab.ER PO SCH ×2 (11:13→20:22)
[2017-02-17] MEDS: predniSONE 20 MG Tab PO SCH ×2 (11:13→20:22)
[2017-02-17] MEDS: Benzonatate 100 MG Cap PO SCH ×2 (13:04→20:21)
[2017-02-17] MEDS ORDERED: Levofloxacin 500 MG Tab PO SCH (20:00)
[2017-02-17] MEDS: Enoxaparin 40 MG/0.4 ML Syringe SUBCUT SCH (20:15)
[2017-02-17] MEDS: atorvaSTATin 40 MG Tab PO SCH (20:15)
[2017-02-18] MEDS: Acetaminophen 325 MG Tab PO PRN (02:56)
[2017-02-18] MEDS ORDERED: Metoprolol Succinate 100 MG Tab.ER PO ONE (08:33)
[2017-02-18] MEDS: Benzonatate 100 MG Cap PO SCH (08:40)
[2017-02-18] MEDS: Potassium Chloride 20 MEQ Tab.ER PO SCH (08:40)
[2017-02-18] MEDS: predniSONE 20 MG Tab PO SCH (08:40)
[2017-02-18] MEDS: Aspirin 81 MG Tab.EC PO SCH (08:41)
[2017-02-18] MEDS: Oxybutynin 5 MG Tab PO SCH (08:41)
[2017-02-18] MEDS: buPROPion 150 MG Tab.SR PO SCH (08:41)
[2017-02-18] MEDS: Escitalopram 20 MG Tab PO SCH (08:41)
--- NOTE | 2017-02-18 08:42 | PCM.PN ---
- General Info Date of Service: 02/18/17 Subjective Update: patient slept much better cough has improved significantly. No chest pain or shortness of breath. Functional Status: Reports: Pain Controlled, Tolerating Diet, Ambulating - Patient Data Vitals - Most Recent: Last Vital Signs Temp 97.7 F 02/18/17 07:45 Pulse 75 02/18/17 07:45 Resp 20 02/18/17 07:45 BP 171/81 H 02/18/17 07:45 Pulse Ox 91 L 02/18/17 07:45 Weight - Most Recent: 101.151 kg I&O - Last 24 Hours: Intake & Output 02/17/17 02/18/17 02/18/17 22:59 06:59 14:59 Intake Total 1050 350 Output Total 1250 450 Balance -200 -100 Lab Results Last 24 Hours: Laboratory Results - last 24 hr 02/18/17 Range/Units 06:20 Sodium 145 (135-145) mmol/L Potassium 3.6 (3.5-5.3) mmol/L Chloride 107 (100-110) mmol/L Carbon Dioxide 29 (21-32) mmol/L BUN 16 (7-18) mg/dL Creatinine 0.6 (0.55-1.02) mg/dL Est Cr Clr Drug Dosing 58.19 mL/min Estimated GFR (MDRD) > 60 (>60) BUN/Creatinine Ratio 26.7 H (9-20) Glucose 129 H (80-116) mg/dL Calcium 9.1 (8.6-10.2) mg/dL Timo Results Last 24 Hours: Microbiology 02/13/17 19:10 Aerobic Blood Culture - Preliminary Blood - Venous - Lab Draw NO GROWTH AFTER 4 DAYS Anaerobic Blood Culture - Preliminary NO GROWTH AFTER 4 DAYS 02/13/17 19:10 Aerobic Blood Culture - Preliminary Blood - Venous NO GROWTH AFTER 4 DAYS Anaerobic Blood Culture - Preliminary NO GROWTH AFTER 4 DAYS Med Orders - Current: Current Medications Acetaminophen (Tylenol) 650 mg PO Q4H PRN PRN Reason: Pain Last Admin: 02/18/17 02:56 Dose: 650 mg Albuterol/Ipratropium (Duoneb 3.0-0.5 Mg/3 Ml) 3 ml NEB QIDRT PRN PRN Reason: Dyspnea Last Admin: 02/17/17 15:58 Dose: 3 ml Aspirin (Halfprin) 81 mg PO DAILY [facility] Last Admin: 02/17/17 08:53 Dose: 81 mg Atorvastatin Calcium (Lipitor) 40 mg PO BEDTIME [facility] Last Admin: 02/17/17 20:15 Dose: 40 mg Benzonatate (Tessalon Perles) 200 mg PO TID [facility] Last Admin: 02/17/17 20:21 Dose: 200 mg Bupropion HCl (Wellbutrin Sr) 150 mg PO BID [facility] Last Admin: 02/17/17 20:15 Dose: 150 mg Docusate Sodium (Colace) 100 mg PO BID PRN PRN Reason: Constipation Enoxaparin Sodium (Lovenox) 40 mg SUBCUT Q24H [facility] Last Admin: 02/17/17 20:15 Dose: 40 mg Escitalopram Oxalate (Lexapro) 20 mg PO DAILY [facility] Last Admin: 02/17/17 08:54 Dose: 20 mg Guaifenesin/Codeine Phosphate (Robitussin Ac) 10 ml PO Q6H PRN PRN Reason: Cough Last Admin: 02/17/17 23:48 Dose: 10 ml Hydroxyzine HCl (Atarax) 25 mg PO QID PRN PRN Reason: Itching Levofloxacin 500 mg/ (Levofloxacin 250 mg) 750 mg PO Q24H [facility] Metoprolol Succinate (Toprol Xl) 25 mg PO DAILY [facility] Last Admin: 02/17/17 08:54 Dose: 25 mg Metoprolol Succinate (Toprol Xl) 100 mg PO ONETIME ONE Stop: 02/18/17 08:34 Oxybutynin Chloride (Oxybutynin) 10 mg PO BID [facility] Last Admin: 02/17/17 20:15 Dose: 10 mg Potassium Chloride (Klor-Con M20) 20 meq PO BID [facility] Last Admin: 02/17/17 20:22 Dose: 20 meq Prednisone (Prednisone) 20 mg PO BID [facility] Last Admin: 02/17/17 20:22 Dose: 20 mg Discontinued Medications Acetaminophen (Tylenol) 650 mg PO Q4H PRN PRN Reason: Pain Aspirin (Halfprin) 81 mg PO DAILY [facility] Ceftriaxone Sodium (Rocephin) 2 gm IV Q24H [facility] Last Admin: 02/15/17 18:32 Dose: 2 gm Enoxaparin Sodium (Lovenox) 30 mg SUBCUT Q24H [facility] Enoxaparin Sodium (Lovenox) 30 mg SUBCUT ONETIME ONE Stop: 02/13/17 22:16 Last Admin: 02/13/17 22:22 Dose: 30 mg Escitalopram Oxalate (Lexapro) 20 mg PO DAILY [facility] Escitalopram Oxalate (Lexapro) Confirm Administered Dose 20 mg .ROUTE .STK-MED ONE Stop: 02/13/17 21:12 Last Admin: 02/13/17 21:31 Dose: Not Given Azithromycin 500 mg/ Sodium (Chloride) 250 mls @ 250 mls/hr IV Q24H [facility] Last Admin: 02/15/17 20:12 Dose: 250 mls/hr Ceftriaxone Sodium 2 gm/ (Sodium Chloride) 100 mls @ 200 mls/hr IV Q24H [facility] Last Admin: 02/13/17 19:40 Dose: 200 mls/hr Sodium Chloride (Normal Saline) 250 mls @ 100 mls/hr IV ASDIRECTED [facility] Levofloxacin/Dextrose 750 mg/ (Premix) 150 mls @ 100 mls/hr IV ONETIME ONE Stop: 02/15/17 22:57 Last Admin: 02/15/17 21:56 Dose: 100 mls/hr Levofloxacin/Dextrose 750 mg/ (Premix) 150 mls @ 100 mls/hr IV Q24H [facility] Last Admin: 02/16/17 19:24 Dose: 100 mls/hr Levofloxacin (Levaquin) 750 mg PO Q24H [facility] Last Admin: 02/17/17 20:22 Dose: 750 mg Metoprolol Succinate (Toprol Xl) 25 mg PO DAILY [facility] Sodium Chloride (Saline Flush) 10 ml FLUSH ASDIRECTED PRN PRN Reason: Keep Vein Open Last Admin: 02/16/17 19:24 Dose: 10 ml - Exam General: Alert, Oriented HEENT: Pupils Equal, Pupils Reactive, EOMI, Mucous Membr. Moist/[place] Lungs: Clear to Auscultation, Normal Respiratory Effort Cardiovascular: Regular Rate, Regular Rhythm - Problem List & Annotations (1) CAP (community acquired pneumonia) SNOMED Code(s): 011759022 Code(s): J18.9 - PNEUMONIA, UNSPECIFIED ORGANISM Status: Acute Current Visit: Yes Qualifiers: Laterality: left Lung location: unspecified part of lung Qualified Code(s ): J18.9 - Pneumonia, unspecified organism (2) COPD (chronic obstructive pulmonary disease) SNOMED Code(s): 14043768 Code(s): J44.9 - CHRONIC OBSTRUCTIVE PULMONARY DISEASE, UNSPECIFIED Status : Acute Current Visit: Yes Qualifiers: COPD type: chronic bronchitis (3) MRSA (methicillin resistant staph aureus) culture positive SNOMED Code(s): 016262186 Code(s): Z22.322 - CARRIER OR SUSPECTED CARRIER OF METHICILLIN RESIS STAPH Status: Acute Priority: High Current Visit: No (4) CAD (coronary artery disease) SNOMED Code(s): 94141588 Code(s): I25.10 - ATHSCL HEART DISEASE OF [place] CORONARY ARTERY W/O ANG PCTRS Status: Chronic Current Visit: No Annotation/Comment:: Continue outpatient meds. (5) Depression SNOMED Code(s): 25338011 Code(s): F32.9 - MAJOR DEPRESSIVE DISORDER, SINGLE EPISODE, UNSPECIFIED Status: Chronic Current Visit: No (6) Lymphedema SNOMED Code(s): 521903834 Code(s): I89.0 - LYMPHEDEMA, NOT ELSEWHERE CLASSIFIED Status: Chronic Current Visit: No Annotation/Comment:: continue mic wraps as recommended. (7) Obesity SNOMED Code(s): 214582973 Code(s): E66.9 - OBESITY, UNSPECIFIED Status: Chronic Current Visit: No (8) Hypokalemia SNOMED Code(s): 36339972 Code(s): E87.6 - HYPOKALEMIA Status: Acute Current Visit: Yes (9) HTN (hypertension) SNOMED Code(s): 76170339 Code(s): I10 - ESSENTIAL (PRIMARY) HYPERTENSION Status: Acute Current Visit: Yes - Problem List Review Problem List Initiated/Reviewed/Updated: Yes - My Orders Last 24 Hours: My Active Orders 02/17/17 09:15 Potassium Chloride [Klor-Con M20] 20 meq PO BID predniSONE 20 mg PO BID 02/17/17 10:19 Discontinue Saline Lock [Peripheral IV Discontinue] [OM.PC] Routine 02/17/17 14:00 Benzonatate [Tessalon Perles] 200 mg PO TID 02/18/17 07:45 Levofloxacin [Levaquin] 750 mg PO Q24H 02/18/17 08:33 Metoprolol Succinate [Toprol XL] 100 mg PO ONETIME ONE 02/18/17 08:40 Ready for Discharge [RC] PER UNIT ROUTINE - Plan Plan:: objective a one-time dose of 100 mg of metoprolol. I've increased dose to 50 mg at bedtime. I'll discharge her home on oral [id number] Tessalon Perles and prednisone.
[2017-02-18 09:14] VITALS: BP 171/85
--- NOTE | 2017-02-18 10:19 | DISCH ---
DISCHARGE DATE: 02/18/2017 REASON FOR ADMISSION: 1. Community-acquired pneumonia. 2. Chronic obstructive pulmonary disease exacerbation. 3. Hypertension. 4. Anxiety and depression. 5. Venous stasis ulcers. CONSULTATIONS: None. BRIEF HISTORY AND HOSPITAL COURSE: A 76-year-old female who came to the clinic with hypoxia and admitted for pneumonia bilateral, treated initially with Rocephin and azithromycin but the sputum culture grew MRSA. This was sensitive to fluoroquinolones. She was started on IV Levaquin 750 mg. She had some cough, which was treated symptomatically with cetirizine, Robitussin with codeine, and Tessalon Perles. She was also given DuoNeb and prednisone for COPD exacerbation. She improved. Her blood pressure was noted to be trending upwards. As such, metoprolol was increased to 50 mg a day. She was discharged on the in stable condition. DISCHARGE MEDICATIONS: 1. Tessalon Perles 100 mg t.i.d. p.r.n. 2. Lexapro 20 mg t.i.d. p.r.n. 3. Robitussin with codeine 10 mL every 6 hours p.r.n. 4. Levaquin 750 mg a day for 7 more days. 5. Metoprolol 50 mg at bedtime. 6. Aspirin 81 mg a day. 7. Cetirizine 10 mg daily p.r.n. 8. Ferrous sulfate 325 mg daily. 9. Nitroglycerin 0.4 mg sublingually p.r.n. 10.Oxybutynin 10 mg b.i.d. 11.Lipitor 40 mg a day. 12.Wellbutrin 150 mg b.i.d. 13.Hydroxyzine 25 mg p.r.n. q.i.d. 14.Lexapro 20 mg a day. 15.Florastor 250 mg b.i.d. 16.Prednisone 10 mg b.i.d. for 5 more days. FOLLOWUP: She will see Dr. Lopez in the office on Sunday, the . Return to the ED with worsening symptoms. Please note that I spent more than 35 minutes in the discharge of this patient. /[id number] MIKE/DIONTE
== END 2017-02-18 11:57 | disposition home or self-care (01) | DRG 194 ==
LOC: FB.MS 17:10
PROVIDERS: ADMIT Family Medicine; ATTEND Family Medicine
DX: J18.9 Pneumonia, unspecified organism (principal); J44.1 Chronic obstructive pulmonary disease with (acute) exacerbation; Z68.41 Body mass index [BMI] 40.0-44.9, adult; I25.10 Atherosclerotic heart disease of native coronary artery without angina pectoris; I10 Essential (primary) hypertension; I89.0 Lymphedema, not elsewhere classified; E66.9 Obesity, unspecified; Z22.322 Carrier or suspected carrier of Methicillin resistant Staphylococcus aureus; F32.9 Major depressive disorder, single episode, unspecified; H40.9 Unspecified glaucoma; F39 Unspecified mood [affective] disorder; E78.5 Hyperlipidemia, unspecified; Z96.653 Presence of artificial knee joint, bilateral; Z79.82 Long term (current) use of aspirin; Z88.1 Allergy status to other antibiotic agents
CPT/HCPCS: 36415; 71020; 80048; 80053; 85025; 85027; 87040; 87070; 87077; 87186; 87205; 94150; 94640; A9270-GY; J0456; J0696; J1650; J1956; J7030; J7050; J7620